=== PATIENT | male | born 1955 | race Caucasian/White ===

== ENCOUNTER → 2016-11-03 | Outpatient (CLI) | payer OTHER ==
[~2016-11-03] MED LIST: AMOX500T PO; ASPI1TAB83 PO; BUPR150T47 PO; CEFT1INJ57 IV; CLB/200 PO; DABI150C PO; DILT120C68 PO; DILT40TA PO; FERR1TAB23 PO; FERR325T5 PO; FRS/40 PO; FURO-85 PO; FURO20TA PO; GABA-1218 PO; LISI-729 PO; LPR25 PO; MAGN400T6 PO; METF-384 PO; METR-163 PO; MULT-190 PO; MULT-506 PO; NTRGSL/4 UT; PRAV80TA2 PO; TRAM-10 PO; VITAMIN B12 SL; WARF4TAB8 PO; WARF6TAB5 PO; WLLSR/150 PO
[2016-11-03 11:36] LABS: HEMATOCRIT 33.8 % (42-52); MEAN CELL VOLUME 84.7 fL (80-100); MEAN CORPUSCULAR HEMOGLOBIN 26.3 pg (25-34); MEAN CORPUSCULAR HGB CONC 31.1 g/dl (32-36); MEAN PLATELET VOLUME 9.9 fL (7.4-10.4); PLATELET COUNT 271 K/uL (130-400); RED BLOOD COUNT 3.99 M/uL (4.7-6.1); WHITE BLOOD COUNT 6.66 K/uL (4.8-10.8)
[2016-11-03 11:53] LABS: ALT/SGPT 19 U/L (12-78); BLOOD UREA NITROGEN 14 mg/dl (7-18); BUN/CREATININE RATIO 22.6 (10-20); C-REACTIVE PROTEIN < 0.29 mg/dl (0-0.29); CALCIUM 8.8 mg/dl (8.5-10.1); CARBON DIOXIDE 26 mmol/L (21-32); CHLORIDE 107 mmol/L (98-107); CREATININE 0.62 mg/dl (0.60-1.40); GLUCOSE 166 mg/dl (70-99); POTASSIUM 4.5 mmol/L (3.5-5.1); SODIUM 139 mmol/L (136-145)
[2016-11-03 11:56] LABS: ALKALINE PHOSPHATASE 88 U/L (45-117); AST/SGOT 19 U/L (15-37)
== END | disposition home or self-care (01) ==
LOC: C.LABSPEC 11:19
PROVIDERS: ATTEND Hospitalist
DX: L03.115 Cellulitis of right lower limb (principal)

== ENCOUNTER 2017-08-22 11:53 | Observation (INO) | payer OTHER ==
[~2017-08-22] VITALS: Ht 172.7 cm; Wt 87.5 kg
[~2017-08-22 11:53] MED LIST changes: -CEFT1INJ57 IV; -CLB/200 PO; -DABI150C PO; -DILT120C68 PO; -FERR1TAB23 PO; -FERR325T5 PO; -FRS/40 PO; -FURO20TA PO; -LISI-729 PO; -MAGN400T6 PO; -MULT-190 PO; -MULT-506 PO; -NTRGSL/4 UT; -VITAMIN B12 SL; -WARF6TAB5 PO; -WLLSR/150 PO
[2017-08-22 12:53] LABS: BASO % 0.3 %; BASO ABS # 0.02 K/uL (0-0.2); EOS % 5.9 %; HEMATOCRIT 28.6 % (42-52); IG% 0.2 %; LYMPH % 17.2 %; LYMPH ABS # 0.99 K/uL (1.2-3.4); MEAN CELL VOLUME 75.3 fL (80-100); MEAN CORPUSCULAR HEMOGLOBIN 22.6 pg (25-34); MEAN CORPUSCULAR HGB CONC 30.1 g/dl (32-36); MEAN PLATELET VOLUME 9.6 fL (7.4-10.4); NEUT % 68.4 %; PLATELET COUNT 196 K/uL (130-400); WHITE BLOOD COUNT 5.77 K/uL (4.8-10.8)
--- NOTE | 2017-08-22 13:00 | DIAGNOSTIC IMAGING REPORT ---
CHEST ONE VIEW PORTABLE CLINICAL HISTORY: Atypical chest pain COMPARISON STUDY: 10/01/2016 FINDINGS: The heart remains enlarged. There is continued radiographic evidence of congestive failure with interstitial edema. There are bilateral pleural effusions with associated bibasilar opacities likely reflecting compressive atelectasis[ . The left-sided PICC catheter has been removed. There is an area of focal pleural thickening/pleural-based opacity within the left upper lung zone. Radiographic follow-up subsequent to failure treatment is recommended. IMPRESSION: 1. Congestive failure, pulmonary edema, and bilateral pleural effusions. 2. Subtle pleural based left upper lung zone opacity. Radiographic follow-up subsequent to failure treatment is recommended. Electronically signed by: Otto Galeano M.D. 08/22/2017 12:58 PM Dictated Date/Time: 08/22/2017 12:57 PM
[2017-08-22] MEDS ORDERED: WARF6TAB5 PO (13:05)
[2017-08-22] MEDS ORDERED: MULT-506 PO (13:06)
[2017-08-22] MEDS ORDERED: FERR1TAB23 PO (13:06)
[2017-08-22] MEDS ORDERED: CLB/200 PO (13:06)
[2017-08-22] MEDS ORDERED: MULT-190 PO (13:06)
[2017-08-22 13:09] LABS: INR 4.7 (0.9-1.1); PARTIAL THROMBOPLASTIN RATIO 1.8; PROTHROMBIN TIME (PATIENT) 53.4 SECONDS (9.0-12.0)
[2017-08-22 13:11] LABS: ALT/SGPT 20 U/L (12-78); BLOOD UREA NITROGEN 16 mg/dl (7-18); CALCIUM 8.6 mg/dl (8.5-10.1); CARBON DIOXIDE 25 mmol/L (21-32); CHLORIDE 109 mmol/L (98-107); CREATININE 0.86 mg/dl (0.60-1.40); GLUCOSE 130 mg/dl (70-99); POTASSIUM 4.4 mmol/L (3.5-5.1); SODIUM 143 mmol/L (136-145)
[2017-08-22 13:16] LABS: ALKALINE PHOSPHATASE 116 U/L (45-117); AST/SGOT 16 U/L (15-37); CKMB/CK RATIO 1.7 (0-3.0)
[2017-08-22] MEDS ORDERED: FUROSEMIDE 40 MG/4 ML VIAL IV STA (13:25)
[2017-08-22 13:55] LABS: ANISOCYTOSIS PRESENT; COMPLETE YES; MICROCYTOSIS PRESENT
[2017-08-22 14:10] VITALS: Ht 172.7 cm; Wt 87.5 kg
[2017-08-22] MEDS ORDERED: POLYETHYLENE (MIRALAX) 17 GM PACK PO PRN (14:15)
[2017-08-22] MEDS ORDERED: ACETAMINOPHEN 325 MG TAB PO PRN (14:15)
[2017-08-22] MEDS ORDERED: ONDANSETRON INJ 2 MG/ML 2 ML VIAL IV PRN (14:15)
[2017-08-22] MEDS ORDERED: TRAMADOL HCL 50 MG TAB PO PRN (14:15)
[2017-08-22] MEDS ORDERED: MAGNESIUM HYDROXIDE SUSP 30 ML UDC PO PRN (14:15)
[2017-08-22] MEDS ORDERED: MoRPHine SULFATE 2 MG/ML CARP IV PRN (14:15)
[2017-08-22] MEDS ORDERED: ALUMINUM/MAGNESIUM/SIMETH (MAALOX MAX) 30 ML UDC PO PRN (14:15)
[2017-08-22] MEDS ORDERED: NITROGLYCERIN 0.4 MG SL PER TAB CHARGE SL PRN (14:15)
--- NOTE | 2017-08-22 14:37 | History and Physical ---
History & Physical Date & Time of Service: Aug 22, 2017 at 14:18 Chief Complaint: SOB Primary Care Physician: Karissa Dillard C.R.N.P. History of Present Illness Source: patient, family (), clinic records, hospital records Patient is a pleasant 62 y/o male, with PMHx of HTN, T2DM w/ neuropathy, chronic anemia, systolic CHF, a.fib, HLD, h/o tobacco abuse, CAD s/p stents to LAD x2, who presented to the ED because of worsening SOB w/ activity x6 weeks. Patient notes yesterday, SOB severely worsened. He went to the football game which required a lot of walking and he was very SOB. He notes last night even rolling over in bed caused him to become SOB. He does have a h/o gastric bypass and notes his weight is usually around 185lb- today around 200lb. He has been taking his medication as prescribed. Patient has a h/o chronic anemia- unsure if he has ever been worked up but states he is to be on an iron supplement, which he has not been taking. He denies any melena or BRBPR. Patient denies any fever, chills, sweats, lightheadedness, dizziness, vision changes, CP, palpitations, edema, wheezing, cough, abdominal pain, nausea, vomiting, diarrhea , urinary symptoms, melena, numbness/tingling, weakness, muscle/joint pain, anxiety/depression, active bleeding, or new skin discoloration/changes. Past Medical/Surgical History Past Medical History: HTN T2DM w/ neuropathy chronic anemia systolic CHF a.fib HLD h/o tobacco abuse CAD s/p stents to LAD x2 Surgical history: osteomyelitis s/p I&D s/p stent placement gastric bypass Family History Brother- CVA Social History Smoking Status: Former Smoker Drug Use: none Marital Status: Housing status: lives with family Occupational Status: employed Multi-Drug Resistant Organisms History of MDRO: No Allergies Coded Allergies: No Known Allergies (Unverified , 08/22/17) Home Medications Scheduled Aspirin (Aspirin), 81 MG PO QAM Bupropion (Zyban), 150 MG PO BID Celecoxib (CeleBREX), 200 MG PO DAILY Diltiazem Hcl (Cardizem), 1 TAB PO BID Ferrous Sulfate (Iron), 1 TAB PO DAILY Furosemide (Lasix), 20 MG PO BID Gabapentin (Neurontin), 300 MG PO BID Metformin Hcl (Glucophage), 1,000 MG PO BID Metoprolol Tartrate (Lopressor), 25 MG PO BID Multivitamin (Multivitamin), 1 TAB PO DAILY Ocuvite Preservision (Ocuvite Preservision), 1 TAB PO BID Pravastatin Sodium (Pravastatin Sodium), PO HS Warfarin Sod (Jantoven), 6 MG PO DAILY Scheduled PRN Tramadol (Ultram), 50 MG PO Q4H PRN Physical Exam Vital Signs Date Time Temp Pulse Resp B/P (MAP) Pulse Ox O2 Delivery O2 Flow Rate FiO2 08/22/17 14:13 78 20 126/64 97 Room Air 08/22/17 13:28 66 18 102/62 93 Room Air 08/22/17 12:47 72 08/22/17 12:34 97 Room Air 08/22/17 12:34 98 Room Air 08/22/17 12:34 98 08/22/17 12:13 36.7 72 18 108/70 93 Room Air General Appearance: no apparent distress Head: normocephalic, atraumatic Eyes: PERRL ENT: hearing grossly normal Neck: supple Respiratory/Chest: no respiratory distress, no accessory muscle use, + crackles (bilateral lung bases ) Cardiovascular: + irregularly irregular (rate controlled) Abdomen/GI: normal bowel sounds, non tender, soft Back: normal inspection Extremities/Musculoskelatal: no calf tenderness, + swelling (+1 pitting edema of bilateral lower extremities ), + pertinent finding (chronic stasis changes to bilateral lower extremities ) Neurologic/Psych: alert, normal mood/affect, oriented x 3 Skin: warm/dry, no rash, + pallor Diagnostics Laboratory Results Results Past 24 Hours Test 08/22/17 12:28 Range/Units White Blood Count 5.77 4.8-10.8 K/uL Red Blood Count 3.80 4.7-6.1 M/uL Hemoglobin 8.6 14.0-18.0 g/dL Hematocrit 28.6 42-52 % Mean Corpuscular Volume 75.3 80-100 fL Mean Corpuscular Hemoglobin 22.6 25-34 pg Mean Corpuscular Hemoglobin Concent 30.1 32-36 g/dl Platelet Count 196 130-400 K/uL Mean Platelet Volume 9.6 7.4-10.4 fL Neutrophils (%) (Auto) 68.4 % Lymphocytes (%) (Auto) 17.2 % Monocytes (%) (Auto) 8.0 % Eosinophils (%) (Auto) 5.9 % Basophils (%) (Auto) 0.3 % Neutrophils # (Auto) 3.95 1.4-6.5 K/uL Lymphocytes # (Auto) 0.99 1.2-3.4 K/uL Monocytes # (Auto) 0.46 0.11-0.59 K/uL Eosinophils # (Auto) 0.34 0-0.5 K/uL Basophils # (Auto) 0.02 0-0.2 K/uL RDW Standard Deviation 51.3 36.4-46.3 fL RDW Coefficient of Variation 18.6 11.5-14.5 % Immature Granulocyte % (Auto) 0.2 % Immature Granulocyte # (Auto) 0.01 0.00-0.02 K/uL Anisocytosis PRESENT Microcytosis PRESENT Prothrombin Time 53.4 9.0-12.0 SECONDS Prothromb Time International Ratio 4.7 0.9-1.1 Activated Partial Thromboplast Time 47.4 21.0-31.0 SECONDS Partial Thromboplastin Ratio 1.8 Sodium Level 143 136-145 mmol/L Potassium Level 4.4 3.5-5.1 mmol/L Chloride Level 109 98-107 mmol/L Carbon Dioxide Level 25 21-32 mmol/L Anion Gap 8.0 3-11 mmol/L Blood Urea Nitrogen 16 7-18 mg/dl Creatinine 0.86 0.60-1.40 mg/dl Est Creatinine Clear Calc Drug Dose 96.4 ml/min Estimated GFR () 107.0 Estimated GFR (Non- 92.3 BUN/Creatinine Ratio 19.0 10-20 Random Glucose 130 70-99 mg/dl Calcium Level 8.6 8.5-10.1 mg/dl Total Bilirubin 0.4 0.2-1 mg/dl Direct Bilirubin 0.2 0-0.2 mg/dl Aspartate Amino Transf (AST/SGOT) 16 15-37 U/L Alanine Aminotransferase (ALT/SGPT) 20 12-78 U/L Alkaline Phosphatase 116 45-117 U/L Total Creatine Kinase 114 39-308 U/L Creatine Kinase MB 1.9 0.5-3.6 ng/ml Creatine Kinase MB Ratio 1.7 0-3.0 Troponin I < 0.015 0-0.045 ng/ml Pro-B-Type Natriuretic Peptide 1010 0-900 pg/ml Total Protein 6.8 6.4-8.2 gm/dl Albumin 3.4 3.4-5.0 gm/dl Lipase 459 73-393 U/L Diagnostic Radiology CHEST ONE VIEW PORTABLE CLINICAL HISTORY: Atypical chest pain COMPARISON STUDY: 10/01/2016 FINDINGS: The heart remains enlarged. There is continued radiographic evidence of congestive failure with interstitial edema. There are bilateral pleural effusions with associated bibasilar opacities likely reflecting compressive atelectasis[ . The left-sided PICC catheter has been removed. There is an area of focal pleural thickening/pleural-based opacity within the left upper lung zone. Radiographic follow-up subsequent to failure treatment is recommended. IMPRESSION: 1. Congestive failure, pulmonary edema, and bilateral pleural effusions. 2. Subtle pleural based left upper lung zone opacity. Radiographic follow-up subsequent to failure treatment is recommended. Electronically signed by: Otto Galeano M.D. 08/22/2017 12:58 PM Dictated Date/Time: 08/22/2017 12:57 PM The status of this report is Signed. Draft = Not yet reviewed or approved by Radiologist. Signed = Reviewed and approved by Radiologist. EKG BRUCE YANEZ ID:[id number] 22-AUG-2017 12:39:58 [facility] Atrial fibrillation Low voltage QRS Abnormal ECG When compared with ECG of 01-OCT-2016 15:56, Vent. rate has decreased BY 39 BPM Confirmed by EMANUEL DURON ([id number]) on 08/22/2017 1:47:53 PM 25mm/s 10mm/mV 150Hz 8.0 SP2 12SL 241 RENE: 10 Referred by: Confirmed By: EMANUEL DURON Vent. rate 69 BPM [place] interval * ms QRS duration 90 ms QT/QTc 434/465 ms P-R-T axes * 49 51 1955 (62 yr) Male 1lb Room: Loc:15 Automatic Steel Tie Adjuster:JOSÉ MIGUEL [place] ind: Impression Assessment and Plan Patient is a pleasant 62 y/o male, with PMHx of HTN, T2DM w/ neuropathy, chronic anemia, systolic CHF, a.fib, HLD, h/o tobacco abuse, CAD s/p stents to LAD x2, who presented to the ED because of worsening SOB w/ activity x6 weeks. Acute on chronic systolic CHF: - Admit to tele for cardiac monitoring - Trend cardiac enzymes- initial trop negative - Follow EKG QAM and PRN for chest pain - O2 protocol - IV Lasix 40 mg BID; hold Lasix 20 mg PO BID - Monitor I&Os and daily weights - ECHO pending Chronic anemia- baseline hgb 10.0: - Follow CBC - Type & screen completed - Check b12/folate, iron studies, and stool occult HTN, CAD s/p stents, HLD, persistent a.fib : - Continue ASA 81 mg daily, Cardizem 60 mg BID, Lopressor 25 mg BID, Pravastatin 80 mg daily - INR supratherapeutic at 4.7- hold Coumadin 6 mg daily- follow PT/INR and adjust Coumadin dosage PRN for INR goal 2-3 Arthritis: Continue Celebrex 200 mg daily, Tramadol 50 mg q4 hrs PRN pain T2DM w/ neuropathy: - Hold Metformin 1000 mg BID - BSG ACHS and ISS - Continue Gabapentin 300 mg BID h/o tobacco abuse: Continue Zyban 150 mg BID GI prophylaxis: Protonix 40 mg daily DVT prophylaxis: TEDs/SCDs; Coumadin held due to supratherapeutic INR/anemia Code Status: LEVEL I, FULL Dispo: From home, lives w/ - no discharge needs anticipated Level of Care Telemetry Resuscitation Status FULL RESUSCITATION VTE Prophylaxis VTE Risk Assessment Done? Y/N: Yes Risk Level: Moderate Given or contraindicated: T.E.D. Stockings, SCD's, Contraindicated
[2017-08-22] MEDS ORDERED: DEXTROSE 50% 50 ML SYR IV PRN (14:45)
[2017-08-22] MEDS ORDERED: GLUCOSE 10 TABS/TUBE PO PRN (14:45)
[2017-08-22] MEDS ORDERED: GLUCAGON FOR INJ 1 MG VIAL SQ PRN (14:45)
[2017-08-22] MEDS ORDERED: GLUCOSE 40% GEL 15 GM TUBE PO PRN (14:45)
[2017-08-22] MEDS ORDERED: IV FLUIDS COMPLETED PRN (15:00)
[2017-08-22 15:06] LABS: FERRITIN 110.4 ng/ml (8.0-388.0)
[2017-08-22 15:14] VITALS: BP 118/72; PULSE 77; TEMP 36.7; O2SAT 93
[2017-08-22 16:00] VITALS: O2SAT 93
[2017-08-22] MEDS: FUROSEMIDE INJ 40 MG in SYRINGE 0 ML IV SCH (16:58)
[2017-08-22] MEDS ORDERED: PRAVASTATIN SOD 40 MG TAB PO SCH (17:00)
[2017-08-22] MEDS: INSULIN ASPART 100 UNITS/ML 3 ML PEN SC SCH ×2 (17:21→20:45)
[2017-08-22] MEDS ORDERED: FUROSEMIDE INJ 20 MG in SYRINGE 0 ML IV SCH (18:00)
--- NOTE | 2017-08-22 18:26 | EMERGENCY ROOM VISIT NOTE ---
History Report prepared by Vale: Jackson Gamble Under the Supervision of: Dr. Juliano Nagy M.D. First contact with patient: 12:24 Chief Complaint: SHORTNESS OF BREATH Stated Complaint: SOB History of Present Illness The patient is a 62 year old male who presents to the Emergency Room with complaints of worsening shortness of breath that started a month and a half ago. He says that his breathing difficulties really got bad over the past couple days. The patient notes that he went to the football game yesterday, and walked more than usual, and got very short of breath. He says that he got so short of breath that he had to lay in bed to recover. He adds that he has history a mild heart attack, where he had no chest pain. The patient also notes a history of stent placements. The patient is on Warfarin. Pt denies LOC, headache, fevers, chills, diaphoresis, visual changes, neck pain, notable chest pain, nausea, vomiting, abdominal pain, back pain, melena, hematochezia, urinary symptoms, numbness, weakness, lymphadenopathy, rash, skin color change, or other complaints. Source of History: patient, family Onset: Month and a half ago Position: other (global - shortness of breath) Symptom Intensity: got so bad that had to lay in bed to recover Timing: worsening Modifying Factors (Worsening): exertion Modifying Factors (Relieving): rest Note: No other associated symptoms noted. Review of Systems See HPI for pertinent positives and negatives. A total of ten systems were reviewed and were otherwise negative. Past Medical & Surgical Medical Problems: (1) Cellulitis of right lower extremity (2) Diabetic foot ulcer (3) Diabetic peripheral neuropathy associated with type 2 diabetes mellitus (4) Loss of sensation (5) Osteomyelitis (6) Pre-ulcerative corn or callous (7) Status post partial amputation of foot Family History No pertinent family history Social History Smoking Status: Former Smoker Drug Use: none Marital Status: Housing Status: lives with family Occupation Status: employed Current/Historical Medications Scheduled Aspirin (Aspirin), 81 MG PO QAM Bupropion (Zyban), 150 MG PO BID Celecoxib (CeleBREX), 200 MG PO DAILY Diltiazem Hcl (Cardizem), 1 TAB PO BID Ferrous Sulfate (Iron), 1 TAB PO DAILY Furosemide (Lasix), 20 MG PO BID Gabapentin (Neurontin), 300 MG PO BID Metformin Hcl (Glucophage), 1,000 MG PO BID Metoprolol Tartrate (Lopressor), 25 MG PO BID Multivitamin (Multivitamin), 1 TAB PO DAILY Ocuvite Preservision (Ocuvite Preservision), 1 TAB PO BID Pravastatin Sodium (Pravastatin Sodium), PO HS Warfarin Sod (Jantoven), 6 MG PO DAILY Scheduled PRN Tramadol (Ultram), 50 MG PO Q4H PRN Allergies Coded Allergies: No Known Allergies (Unverified , 08/22/17) Physical Exam Vital Signs Date Time Temp Pulse Resp B/P (MAP) Pulse Ox O2 Delivery O2 Flow Rate FiO2 08/22/17 14:13 78 20 126/64 97 Room Air 08/22/17 14:10 Room Air 08/22/17 13:28 66 18 102/62 93 Room Air 08/22/17 12:47 72 08/22/17 12:34 97 Room Air 08/22/17 12:34 98 Room Air 08/22/17 12:34 98 08/22/17 12:13 36.7 72 18 108/70 93 Room Air Physical Exam GENERAL: Awake, alert, well-appearing, in no distress HENT: Normocephalic, atraumatic. Oropharynx unremarkable. EYES: Pale conjunctiva. Sclera non-icteric. NECK: Supple. No nuchal rigidity. FROM. No JVD. RESPIRATORY: Clear to auscultation. CARDIAC: Irregularly irregular. Extremities warm and well perfused. Pulses equal. ABDOMEN: Soft, non-distended. No tenderness to palpation. No rebound or guarding. No masses. RECTAL: Deferred. MUSCULOSKELETAL: Chest examination reveals no tenderness. The back is symmetrical on inspection without obvious abnormality. There is no CVA tenderness to palpation. No joint edema. LOWER EXTREMITIES: Calves are equal size bilaterally and non-tender. 1+ edema. Chronic venous discoloration. NEURO: Normal sensorium. No sensory or motor deficits noted. SKIN: No rash or jaundice noted. Medical Decision & Procedures ER Provider Diagnostic Interpretation: X-ray: Per my interpretation, radiologist review. CHEST ONE VIEW PORTABLE CLINICAL HISTORY: Atypical chest pain COMPARISON STUDY: 10/01/2016 FINDINGS: The heart remains enlarged. There is continued radiographic evidence of congestive failure with interstitial edema. There are bilateral pleural effusions with associated bibasilar opacities likely reflecting compressive atelectasis[ . The left-sided PICC catheter has been removed. There is an area of focal pleural thickening/pleural-based opacity within the left upper lung zone. Radiographic follow-up subsequent to failure treatment is recommended. IMPRESSION: 1. Congestive failure, pulmonary edema, and bilateral pleural effusions. 2. Subtle pleural based left upper lung zone opacity. Radiographic follow-up subsequent to failure treatment is recommended. Electronically signed by: Otto Galeano M.D. 08/22/2017 12:58 PM Dictated Date/Time: 08/22/2017 12:57 PM Laboratory Results 08/22/17 12:28 Red Blood Count 3.80, Mean Corpuscular Volume 75.3, Mean Corpuscular Hemoglobin 22.6, Mean Corpuscular Hemoglobin Concent 30.1, Mean Platelet Volume 9.6, Neutrophils (%) (Auto) 68.4, Lymphocytes (%) (Auto) 17.2, Monocytes (%) (Auto) 8.0, Eosinophils (%) (Auto) 5.9, Basophils (%) (Auto) 0.3, Neutrophils # (Auto) 3.95, Lymphocytes # (Auto) 0.99, Monocytes # (Auto) 0.46, Eosinophils # (Auto) 0.34, Basophils # (Auto) 0.02 08/22/17 12:28 Test 08/22/17 12:28 White Blood Count 5.77 K/uL (4.8-10.8) Red Blood Count 3.80 M/uL (4.7-6.1) Hemoglobin 8.6 g/dL (14.0-18.0) Hematocrit 28.6 % (42-52) Mean Corpuscular Volume 75.3 fL (80-100) Mean Corpuscular Hemoglobin 22.6 pg (25-34) Mean Corpuscular Hemoglobin Concent 30.1 g/dl (32-36) Platelet Count 196 K/uL (130-400) Mean Platelet Volume 9.6 fL (7.4-10.4) Neutrophils (%) (Auto) 68.4 % Lymphocytes (%) (Auto) 17.2 % Monocytes (%) (Auto) 8.0 % Eosinophils (%) (Auto) 5.9 % Basophils (%) (Auto) 0.3 % Neutrophils # (Auto) 3.95 K/uL (1.4-6.5) Lymphocytes # (Auto) 0.99 K/uL (1.2-3.4) Monocytes # (Auto) 0.46 K/uL (0.11-0.59) Eosinophils # (Auto) 0.34 K/uL (0-0.5) Basophils # (Auto) 0.02 K/uL (0-0.2) RDW Standard Deviation 51.3 fL (36.4-46.3) RDW Coefficient of Variation 18.6 % (11.5-14.5) Immature Granulocyte % (Auto) 0.2 % Immature Granulocyte # (Auto) 0.01 K/uL (0.00-0.02) Anisocytosis PRESENT Microcytosis PRESENT Prothrombin Time 53.4 SECONDS (9.0-12.0) Prothromb Time International Ratio 4.7 (0.9-1.1) Activated Partial Thromboplast Time 47.4 SECONDS (21.0-31.0) Partial Thromboplastin Ratio 1.8 Anion Gap 8.0 mmol/L (3-11) Est Creatinine Clear Calc Drug Dose 96.4 ml/min Estimated GFR () 107.0 Estimated GFR (Non- 92.3 BUN/Creatinine Ratio 19.0 (10-20) Calcium Level 8.6 mg/dl (8.5-10.1) Iron Level 23 mcg/dl (35-175) Total Iron Binding Capacity 384 mcg/dl (250-450) Transferrin 278 mg/dl (200-360) Transferrin % Saturation 6 % (20-50) Ferritin 110.4 ng/ml (8.0-388.0) Total Bilirubin 0.4 mg/dl (0.2-1) Direct Bilirubin 0.2 mg/dl (0-0.2) Aspartate Amino Transf (AST/SGOT) 16 U/L (15-37) Alanine Aminotransferase (ALT/SGPT) 20 U/L (12-78) Alkaline Phosphatase 116 U/L (45-117) Total Creatine Kinase 114 U/L (39-308) Creatine Kinase MB 1.9 ng/ml (0.5-3.6) Creatine Kinase MB Ratio 1.7 (0-3.0) Troponin I < 0.015 ng/ml (0-0.045) Pro-B-Type Natriuretic Peptide 1010 pg/ml (0-900) Total Protein 6.8 gm/dl (6.4-8.2) Albumin 3.4 gm/dl (3.4-5.0) Lipase 459 U/L (73-393) Hepatitis C Antibody Screen NEG (NEG) Laboratory results reviewed by me Medications Administered Medications (Trade) Dose Ordered Sig/Edward Route Start Time Stop Time Status Last Admin Dose Admin Furosemide (Lasix Inj) 40 mg NOW STAT IV 08/22/17 13:25 08/22/17 13:26 DC 08/22/17 13:43 40 MG ECG Indication: SOB/dyspnea Rate (beats per minute): 69 Rhythm: atrial fibrillation Findings: no acute ischemic change, no ectopy ED Course 1230: The patient was evaluated in room B9. A complete history and physical exam was performed. 1325: Ordered Lasix Inj 40 mg IV. 1331: Upon reexamination, the patient was resting. I discussed the test results and treatment plan with him. He expressed verbal understanding and agreement. The patient will be evaluated for further management. 1332: I discussed the patient with Dr. Bree BERNABE hospitalist - he will evaluate the patient for further treatment. Medical Decision Triage Nursing notes reviewed. The patient's presentation and history were concerning for shortness of breath and exertional dyspnea. Etiologies such as CHF, cardiac ischemia,pneumonia, COPD, reactive airway disease, pulmonary embolism, pneumothorax, musculoskeletal, infections, gastrointestinal, as well as others were entertained. The patient was evaluated. Physical is above. He had blood work obtained. ECG and chest x-ray performed. CHF was noted on his chest x-ray. The patient' s CBC revealed a moderate anemia. Type and screen sent. The patient was given IV Lasix. He had an unremarkable set of cardiac markers. ECG did not reveal any evidence of ischemia. The patient will need further management and workup in the hospital. I discussed this with the patient and his significant other. They were in agreement. Consultation was made with the hospitalist. The patient was evaluated for further treatment. Medication Reconcilliation Current Medication List: was personally reviewed by me Blood Pressure Screening Patient's blood pressure: Normal blood pressure Consults Time Called: 1330 Consulting Physician: Dr. Bree BERNABE hospitalist Returned Call: 1332 I discussed the patient with Dr. Bree BERNABE hospitalist - he will evaluate the patient for further treatment. Impression Primary Impression: Acute CHF Additional Impressions: Anemia Supratherapeutic INR Scribe Attestation The scribe's documentation has been prepared under my direction and personally reviewed by me in its entirety. I confirm that the note above accurately reflects all work, treatment, procedures, and medical decision making performed by me. Departure Information Dispostion Being Evaluated By Hospitalist Referrals Karissa Dillard, C.R.N.P. (PCP) Patient Instructions My [facility] Problem Qualifiers
[2017-08-22 19:26] VITALS: BP 113/75; PULSE 97; TEMP 36.7; O2SAT 96
[2017-08-22 20:00] VITALS: O2SAT 96
[2017-08-22] MEDS: METOPROLOL TARTRATE 25 MG TAB PO SCH (20:43)
[2017-08-22] MEDS: DILTIAZEM HCL 60 MG TAB PO SCH (20:43)
[2017-08-22] MEDS: CEROVITE ADV FORMULA TAB PO SCH (20:44)
[2017-08-22] MEDS: GABAPENTIN 300 MG CAP PO SCH (20:44)
[2017-08-22] MEDS: BuPROPion SR 150 MG TABCR PO SCH (20:44)
[2017-08-23] VITALS (7 sets, daily range): BP systolic 96–121; BP diastolic 67–75; PULSE 72–86; TEMP 36.7–37.6; O2SAT 80–96
[2017-08-23 04:39] LABS: HEMATOCRIT 29.1 % (42-52); MEAN CELL VOLUME 74.6 fL (80-100); MEAN CORPUSCULAR HEMOGLOBIN 22.1 pg (25-34); MEAN CORPUSCULAR HGB CONC 29.6 g/dl (32-36); MEAN PLATELET VOLUME 8.8 fL (7.4-10.4); PLATELET COUNT 197 K/uL (130-400); WHITE BLOOD COUNT 5.77 K/uL (4.8-10.8)
[2017-08-23 04:50] LABS: INR 3.1 (0.9-1.1); PROTHROMBIN TIME (PATIENT) 35.2 SECONDS (9.0-12.0)
[2017-08-23 05:00] LABS: BLOOD UREA NITROGEN 17 mg/dl (7-18); BUN/CREATININE RATIO 20.5 (10-20); CALCIUM 8.8 mg/dl (8.5-10.1); CARBON DIOXIDE 29 mmol/L (21-32); CHLORIDE 108 mmol/L (98-107); CREATININE 0.81 mg/dl (0.60-1.40); GLUCOSE 115 mg/dl (70-99); SODIUM 144 mmol/L (136-145)
[2017-08-23] MEDS: BuPROPion SR 150 MG TABCR PO SCH (07:57)
[2017-08-23] MEDS: CEROVITE ADV FORMULA TAB PO SCH (07:58)
[2017-08-23] MEDS: DILTIAZEM HCL 60 MG TAB PO SCH (07:58)
[2017-08-23] MEDS: GABAPENTIN 300 MG CAP PO SCH (07:58)
[2017-08-23] MEDS: METOPROLOL TARTRATE 25 MG TAB PO SCH (07:59)
[2017-08-23] MEDS: FUROSEMIDE INJ 40 MG in SYRINGE 0 ML IV SCH (07:59)
[2017-08-23] MEDS: INSULIN ASPART 100 UNITS/ML 3 ML PEN SC SCH ×2 (08:04→11:00)
--- NOTE | 2017-08-23 08:42 | Hospitalist Progress Note ---
Hospitalist Progress Note Date of Service Aug 23, 2017. (Anisa Rogers PA-C) Subjective Pt evaluation today including: conversation w/ patient, physical exam, chart review, lab review, review of studies Pain: None PO Intake: good Voiding: no voiding problems The patient was seen and examined this morning. Pt reports feeling well today. He did wears O2 at 2 L overnight, but is hopeful that he doesn't have to wear this at home. He denies shortness of breaths, chest pain, palpitations, flutter. Pt hasn't gotten up to walk in the hallways today, so was encouraged to later. Nursing asked to do a 2step O2 test. Constitutional: No fever, No chills, No sweats, No fatigue Eyes: No diplopia, No problem reported ENT: No nasal symptoms, No trouble swallowing Respiratory: No cough, No wheezing, No shortness of breath, No dyspnea on exertion, No dyspnea at rest Cardiovascular: No chest pain, No edema, No palpitations Abdomen: No pain, No nausea, No vomiting, No diarrhea, No constipation Musculoskeletal: No joint pain Neurologic: No weakness, No numbness/tingling Endo: No fatigue Skin: No rash, No itch (Anisa Rogers PA-C) Objective Vital Signs Date Time Temp Pulse Resp B/P (MAP) Pulse Ox O2 Delivery O2 Flow Rate FiO2 08/23/17 07:21 36.9 83 18 116/75 (89) 93 Nasal Cannula 2.0 08/23/17 04:04 96 Room Air 08/23/17 03:08 36.7 86 18 121/74 (90) 92 08/23/17 00:06 37.6 72 18 111/67 (82) 86 Room Air 08/23/17 00:02 96 Room Air 08/22/17 20:00 96 Room Air 08/22/17 19:26 36.7 97 18 113/75 (88) 96 Room Air 08/22/17 16:00 93 Room Air 08/22/17 15:14 36.7 77 18 118/72 (87) 93 Room Air 08/22/17 14:40 78 20 126/64 97 08/22/17 14:13 78 20 126/64 97 Room Air 08/22/17 14:10 Room Air 08/22/17 13:28 66 18 102/62 93 Room Air 08/22/17 12:47 72 08/22/17 12:34 97 Room Air 08/22/17 12:34 98 Room Air 08/22/17 12:34 98 08/22/17 12:13 36.7 72 18 108/70 93 Room Air (Anisa Rogers PA-C) Physical Exam General Appearance: WD/WN, no apparent distress Eyes: PERRL, EOMI ENT: hearing grossly normal, pharynx normal Neck: supple, no JVD Respiratory/Chest: lungs clear, no respiratory distress, no accessory muscle use, + pertinent finding (on room air) Cardiovascular: no murmur, + irregularly irregular (rate controlled) Abdomen: normal bowel sounds, non tender, soft Extremities: non-tender, no pedal edema, + pertinent finding (Chronic venous stasis changes) Neurologic/Psychiatric: alert, normal mood/affect, oriented x 3 (Anisa Rogers PA-C) Laboratory Results Last 24 Hours Test 08/22/17 12:28 08/22/17 15:56 08/22/17 20:00 08/22/17 20:05 White Blood Count 5.77 K/uL Red Blood Count 3.80 M/uL Hemoglobin 8.6 g/dL Hematocrit 28.6 % Mean Corpuscular Volume 75.3 fL Mean Corpuscular Hemoglobin 22.6 pg Mean Corpuscular Hemoglobin Concent 30.1 g/dl Platelet Count 196 K/uL Mean Platelet Volume 9.6 fL Neutrophils (%) (Auto) 68.4 % Lymphocytes (%) (Auto) 17.2 % Monocytes (%) (Auto) 8.0 % Eosinophils (%) (Auto) 5.9 % Basophils (%) (Auto) 0.3 % Neutrophils # (Auto) 3.95 K/uL Lymphocytes # (Auto) 0.99 K/uL Monocytes # (Auto) 0.46 K/uL Eosinophils # (Auto) 0.34 K/uL Basophils # (Auto) 0.02 K/uL RDW Standard Deviation 51.3 fL RDW Coefficient of Variation 18.6 % Immature Granulocyte % (Auto) 0.2 % Immature Granulocyte # (Auto) 0.01 K/uL Anisocytosis PRESENT Microcytosis PRESENT Prothrombin Time 53.4 SECONDS Prothromb Time International Ratio 4.7 Activated Partial Thromboplast Time 47.4 SECONDS Partial Thromboplastin Ratio 1.8 Sodium Level 143 mmol/L Potassium Level 4.4 mmol/L Chloride Level 109 mmol/L Carbon Dioxide Level 25 mmol/L Anion Gap 8.0 mmol/L Blood Urea Nitrogen 16 mg/dl Creatinine 0.86 mg/dl Est Creatinine Clear Calc Drug Dose 96.4 ml/min Estimated GFR () 107.0 Estimated GFR (Non- 92.3 BUN/Creatinine Ratio 19.0 Random Glucose 130 mg/dl Calcium Level 8.6 mg/dl Iron Level 23 mcg/dl Total Iron Binding Capacity 384 mcg/dl Transferrin 278 mg/dl Transferrin % Saturation 6 % Ferritin 110.4 ng/ml Total Bilirubin 0.4 mg/dl Direct Bilirubin 0.2 mg/dl Aspartate Amino Transf (AST/SGOT) 16 U/L Alanine Aminotransferase (ALT/SGPT) 20 U/L Alkaline Phosphatase 116 U/L Total Creatine Kinase 114 U/L Creatine Kinase MB 1.9 ng/ml 1.4 ng/ml Creatine Kinase MB Ratio 1.7 Troponin I < 0.015 ng/ml < 0.015 ng/ml Pro-B-Type Natriuretic Peptide 1010 pg/ml Total Protein 6.8 gm/dl Albumin 3.4 gm/dl Lipase 459 U/L Hepatitis C Antibody Screen NEG Bedside Glucose 89 mg/dl Test 08/22/17 20:14 08/23/17 00:00 08/23/17 04:00 08/23/17 04:31 Bedside Glucose 111 mg/dl Stool Occult Blood NEGATIVE Creatine Kinase MB Ratio White Blood Count 5.77 K/uL Red Blood Count 3.90 M/uL Hemoglobin 8.6 g/dL Hematocrit 29.1 % Mean Corpuscular Volume 74.6 fL Mean Corpuscular Hemoglobin 22.1 pg Mean Corpuscular Hemoglobin Concent 29.6 g/dl RDW Standard Deviation 49.7 fL RDW Coefficient of Variation 18.4 % Platelet Count 197 K/uL Mean Platelet Volume 8.8 fL Prothrombin Time 35.2 SECONDS Prothromb Time International Ratio 3.1 Sodium Level 144 mmol/L Potassium Level 4.0 mmol/L Chloride Level 108 mmol/L Carbon Dioxide Level 29 mmol/L Anion Gap 7.0 mmol/L Blood Urea Nitrogen 17 mg/dl Creatinine 0.81 mg/dl Est Creatinine Clear Calc Drug Dose 102.3 ml/min Estimated GFR () 109.6 Estimated GFR (Non- 94.6 BUN/Creatinine Ratio 20.5 Random Glucose 115 mg/dl Calcium Level 8.8 mg/dl Creatine Kinase MB 0.8 ng/ml Troponin I < 0.015 ng/ml Vitamin B12 Level 1099 pg/mL Folate > 24.00 ng/mL Test 08/23/17 07:03 Bedside Glucose 130 mg/dl (Anisa Rogers, PAJpC) Assessment and Plan Patient is a pleasant 62 y/o male, with PMHx of HTN, T2DM w/ neuropathy, chronic anemia, systolic CHF, a.fib, HLD, h/o tobacco abuse, CAD s/p stents to LAD x2, who presented to the ED because of worsening SOB w/ activity x6 weeks. Acute on chronic systolic CHF: - Cardiac biomarkers negative x 3 - Follow EKG QAM and PRN for chest pain - O2 protocol - IV Lasix 40 mg BID transitioned to 20 mg Po QPM and 40 mg QAM - if does well with this overnight will likely d/c home tomorrow. - Outs = 2.3 L cumulative, and weight is decreasing - ECHO from 08/23/17 * Low normal left ventricular systolic function. * Mild concentric left ventricular hypertrophy. * Moderate left atrial dilatation. * Mild mitral regurgitation. * Trace tricuspid regurgitation. Chronic anemia- baseline hgb 10.0: - Follow CBC - remains stable in high 9s. - Hemoccult negative - B12 & folate adequate - Iron studies: total iron and transferrin sat are low - TIBC and and transferrin and ferritin are adequate - can dc iron supplementation- pt hasn't truely been taking iron for the past year. HTN CAD s/p stents - Continue ASA 81 mg daily, Cardizem 60 mg BID, Lopressor 25 mg BID HLD - Pravastatin 80 mg daily Chronic Atrial Fibrillation - EKG reviewed this am in afib, rate controlled - INR supratherapeutic at 4.7 at time of admission - Today is 3.1 - can resume small dose of coumadin tonight- 4mg - follow PT/INR and adjust Coumadin dosage PRN for INR goal 2-3 Arthritis - Continue Celebrex 200 mg daily, Tramadol 50 mg q4 hrs PRN pain T2DM w/ neuropathy: - Hold Metformin 1000 mg BID - BSG ACHS and ISS - Continue Gabapentin 300 mg BID h/o tobacco abuse: Continue Zyban 150 mg BID GI prophylaxis: Protonix 40 mg daily DVT prophylaxis: TEDs/SCDs; Coumadin held due to supratherapeutic INR/anemia Code Status: FULL CODE Dispo: From home, lives w/ - no discharge needs anticipated, d/c likely tomorrow (Anisa Rogers, TREY) I agree with above note after examining patient and discussing my plan of care with patient and APC. My physical exam did not differ from the one presented above. I agree with analysis and plan discussed in above note. (Roberto Sung M.D.)
[2017-08-23] MEDS ORDERED: CeleBREX 200 MG CAP PO SCH (09:00)
[2017-08-23] MEDS ORDERED: ASPIRIN 81 MG ECTAB PO SCH (09:00)
[2017-08-23] MEDS ORDERED: PANTOprazole SOD 40 MG TAB PO SCH (09:00)
[2017-08-23] MEDS ORDERED: MULTIVITAMIN TAB PO SCH (09:00)
[2017-08-23] MEDS ORDERED: FERROUS SULFATE 325 MG TAB PO SCH (09:00)
--- NOTE | 2017-08-23 12:26 | ECHOCARDIOGRAM REPORT ---
*NOTICE TO RECEIVING [employer] This information is strictly Confidential and protected under [place] law. [place] law prohibits you from making any further disclosure of this information unless further disclosure is expressly permitted by the written consent of the person to whom it pertains or is authorized by law. A general authorization for the release of medical or other information is not sufficient for this purpose. Hospital accepts no responsibility if the information is made available to any other person, INCLUDING THE PATIENT. Interpretation Summary * Name: BRUCE YANEZ Study Date: 08/23/2017 06:30 AM BP: 116/75 mmHg * Patient Location: .2T\S\E215\S\1 HR: 83 * : 1955 (M/d/yyyy) Gender: Male Height: 68 in * Age: 62 yrs Ethnicity: [place] Weight: 201 lb * Ordering Physician: Che Haddad * Referring Physician: Self, Referred * Performed By: Apurva Sanford RDCS * * Reason For Study: CHF * BSA: 2.0 m2 * Low normal left ventricular systolic function. * Mild concentric left ventricular hypertrophy. * Moderate left atrial dilatation. * Mild mitral regurgitation. * Trace tricuspid regurgitation. Procedure Details * A complete two-dimensional transthoracic echocardiogram was performed (2D, M-mode, Doppler and color flow Doppler). Left Ventricle * The left ventricle is normal in size. * There is mild concentric left ventricular hypertrophy. * Ejection Fraction = 50-55%. * Left ventricular systolic function is low normal. * The left ventricular wall motion is normal. * No regional wall motion abnormalities noted. Right Ventricle * The right ventricle is normal in size and function. * The right ventricular systolic function is normal as assessed by tricuspid annular plane systolic excursion (TAPSE) (normal >1.5 cm). Atria * The left atrium is moderately dilated. * Right atrial size is normal. * No ASD detected; PFO is not assessed. Mitral Valve * The mitral valve is normal. * There is no mitral valve stenosis. * There is mild mitral regurgitation. Tricuspid Valve * The tricuspid valve is normal. * There is no tricuspid stenosis. * There is trace tricuspid regurgitation. * Right ventricular systolic pressure is normal. Aortic Valve * The aortic valve opens well. * The aortic valve is trileaflet. * Aortic stenosis is absent. * No aortic regurgitation is present. Pulmonic Valve * The pulmonic valve is not well seen, but is grossly normal. * Pulmonic stenosis is absent. * There is no pulmonic valvular regurgitation. Great Vessels * The aortic root is normal size. Pericardium/Pleural * There is no pericardial effusion. Great Vessels * Normal inferior vena cava diameter and respiratory variation suggests normal central venous pressure. MMode 2D Measurements and Calculations IVSd 1.4 cm IVSs 2.1 cm LVIDd 4.6 cm LVIDs 3.4 cm LVPWd 1.4 cm LVPWs 1.5 cm IVS/LVPW 0.97 FS 27.8 % EDV(Teich) 99.7 ml ESV(Teich) 45.9 ml EF(Teich) 54.0 % EDV(cubed) 100.3 ml ESV(cubed) 37.7 ml EF(cubed) 62.4 % % IVS thick 52.5 % % LVPW thick 3.9 % LV mass(C)d 254.5 grams LV mass(C)dI 124.3 grams/m\S\2 LV mass(C)s 239.7 grams LV mass(C)sI 117.0 grams/m\S\2 SV(Teich) 53.8 ml SI(Teich) 26.3 ml/m\S\2 SV(cubed) 62.6 ml SI(cubed) 30.6 ml/m\S\2 Ao root diam 3.7 cm Ao root area 10.6 cm\S\2 LA dimension 5.0 cm LA/Ao 1.4 LVAd ap4 33.4 cm\S\2 LVLd ap4 7.9 cm EDV(MOD-sp4) 117.7 ml EDV(sp4-el) 120.8 ml LVAs ap4 21.5 cm\S\2 LVLs ap4 6.8 cm ESV(MOD-sp4) 58.9 ml ESV(sp4-el) 57.2 ml EF(MOD-sp4) 50.0 % EF(sp4-el) 52.6 % LVAd ap2 33.7 cm\S\2 LVLd ap2 8.5 cm EDV(MOD-sp2) 110.4 ml EDV(sp2-el) 113.3 ml LVAs ap2 22.2 cm\S\2 LVLs ap2 7.7 cm ESV(MOD-sp2) 54.4 ml ESV(sp2-el) 54.6 ml EF(MOD-sp2) 50.7 % EF(sp2-el) 51.8 % LVLd %diff 7.4 % EDV(MOD-bp) 118.9 ml LVLs %diff 10.8 % ESV(MOD-bp) 60.0 ml EF(MOD-bp) 49.6 % SV(MOD-sp4) 58.9 ml SI(MOD-sp4) 28.7 ml/m\S\2 SV(MOD-sp2) 55.9 ml SI(MOD-sp2) 27.3 ml/m\S\2 SV(MOD-bp) 58.9 ml SI(MOD-bp) 28.8 ml/m\S\2 SV(sp4-el) 63.5 ml SI(sp4-el) 31.0 ml/m\S\2 SV(sp2-el) 58.7 ml SI(sp2-el) 28.6 ml/m\S\2 Doppler Measurements and Calculations MV E max jackie 139.9 cm/sec MV dec time 0.19 sec Ao V2 max 109.5 cm/sec Ao max PG 4.8 mmHg Ao max PG (full) 2.1 mmHg LV V1 max PG 2.7 mmHg LV V1 max 82.0 cm/sec TR max jackie 219.6 cm/sec
--- NOTE | 2017-08-23 14:47 | Discharge Instructions ---
Discharge Instructions Date of Service Aug 23, 2017. Admission Reason for Admission: CHF Discharge Discharge Diagnosis / Problem: Acute on chronic systolic CHF Discharge Goals Goal(s): Decrease discomfort, Improve function, Increase independence, Improve disease control Activity Recommendations Activity Limitations: resume your previous activity Lifting Limitations: no more than 25 pounds, gradually increase as tolerated Exercise/Sports Limitations: rest today May Resume Sexual Activity: when tolerated Shower/Bathe: no limitations Driving or Machine Use: no limitations . Instructions / Follow-Up Instructions / Follow-Up You were admitted to [facility] with shortness of breath and diagnosed with acute exacerbation of Congestive heart failure. During your stay here you were treated with intravenous diuretics and other supportive care. Imaging studies which were completed include: Echocardiogram which showed: Low normal left ventricular systolic function. Mild concentric left ventricular hypertrophy. Moderate left atrial dilatation. Mild mitral regurgitation. Trace tricuspid regurgitation. Medications: Your lasix dosing has been changed to 40 mg in the morning and 20 mg in the evening. Continue taking coumadin as prescribed with a repeat INR on 08/25 Your coumadin was held on 08/22. On 08/23 it was reduced to 4 mg. RESUME your normal coumadin dosing tomorrow. Have repeat INR drawn on 08/23/17. Your INR at time of discharge was 3.1 Continue taking your medications as above. Appointments: Follow up with your Primary Care Provider within 1 week. Follow up with cardiology within 2 weeks, with Dr. Khan Specific CHF Instructions: Call your Primary Care doctor if any of the following symptoms or problems start or get worse: * Shortness of breath or difficulty breathing * Wake up at night short of breath * Chest pain * Cough * Swelling of your hands, feet, or legs * More fatigued or tired with your normal activity * Palpitations - sudden fast heart beats WEIGHT * Weigh yourself every morning after using the bathroom. * Use the same scale. * Wear the same amount of clothing. * Write your weight down on a chart. * Call your Primary Care doctor if you gain more than 2-3 pounds in 1-2 days or more than 5 lbs within 1 week. MEDICATIONS * Use this discharge instruction sheet for medication instructions. * Take your medications at the time your doctor ordered. * Do not skip a dose of your medicines. * If you miss a dose of medicine, take it as soon as possible, but DO NOT DOUBLE A DOSE. * Read your medicine information when you get home. * Know all of the side effects of your medicine. If in doubt, ask your pharmacist * Call your Primary Care doctor's office if you have any side effects. * Be sure all of your doctors know what medicine and herbs you take (including cold, flu, and herbal medicine). Take the following with you to your follow-up doctor appointments: * Weight Chart * Medication List * List of questions Do not drink excessive alcohol, beer or wine. Current Hospital Diet Patient's current hospital diet: AHA Diet (Heart Healthy), Diabetes Type 2 Diet , Low Sodium Diet (2gm Na) Discharge Diet Recommended Diet: AHA Diet (Heart Healthy), Low Sodium Diet (2gm Na), Diabetes Type 2 Diet Pending Studies Studies pending at discharge: no Medical Emergencies . Who to Call and When: Call 911 or go to the Emergency Room if: * If at any time you feel your situation is an emergency * You have tightness or pain in your chest that does not go away with rest or Nitroglycerin * You are very short of breath even with rest . Non-Emergent Contact Non-Emergency issues call your: Primary Care Provider Call Non-Emergent contact if: you have a fever, temperature is above 100.5, your pain is not controlled, your pain is worsening, your pain is unusual for you, your pain is concerning you, you have any medication questions . Past History Medical & Surgical History: (1) CHF (congestive heart failure) (2) Supratherapeutic INR . "Provider Documentation" section prepared by Lauren Rogers. . VTE Core Measure Inpt VTE Proph given/why not?: T.E.D. Stockings, SCD's, Contraindicated
[2017-08-23] MEDS ORDERED: FURO20TA PO (14:50)
--- NOTE | 2017-08-23 14:51 | Discharge Summary ---
Discharge Summary Date of Service Aug 23, 2017. (Anisa Rogers PA-C) Discharge Summary Admission Date: Aug 22, 2017 at 14:18 Discharge Date: Aug 23, 2017 Discharge Disposition: Home Principal Diagnosis: Acute on chronic systolic CHF exacerbation Problems/Secondary Diagnoses: Acute on chronic systolic CHF Chronic anemia- baseline hgb 10.0 HTN CAD s/p stents HLD Chronic Atrial Fibrillation Arthritis T2DM w/ neuropathy h/o tobacco abuse Procedures: CHEST ONE VIEW PORTABLE CLINICAL HISTORY: Atypical chest pain COMPARISON STUDY: 10/01/2016 FINDINGS: The heart remains enlarged. There is continued radiographic evidence of congestive failure with interstitial edema. There are bilateral pleural effusions with associated bibasilar opacities likely reflecting compressive atelectasis[ . The left-sided PICC catheter has been removed. There is an area of focal pleural thickening/pleural-based opacity within the left upper lung zone. Radiographic follow-up subsequent to failure treatment is recommended. IMPRESSION: 1. Congestive failure, pulmonary edema, and bilateral pleural effusions. 2. Subtle pleural based left upper lung zone opacity. Radiographic follow-up subsequent to failure treatment is recommended. Electronically signed by: Otto Galeano M.D. 08/22/2017 12:58 PM Dictated Date/Time: 08/22/2017 12:57 PM The status of this report is Signed. Echocardiogram 08/23/17 Interpretation Summary * Name: BRUCE YANEZ Study Date: 08/23/2017 06:30 AM BP: 116/75 mmHg * Patient Location: [facility]\\15\S\1 HR: 83 * : 1955 (M/d/yyyy) Gender: Male Height: 68 in * Age: 62 yrs Ethnicity: [place] Weight: 201 lb * Ordering Physician: Che Haddad * Referring Physician: Self, Referred * Performed By: Apurva Sanford RDCS * * Reason For Study: CHF * BSA: 2.0 m2 * Low normal left ventricular systolic function. * Mild concentric left ventricular hypertrophy. * Moderate left atrial dilatation. * Mild mitral regurgitation. * Trace tricuspid regurgitation. Procedure Details * A complete two-dimensional transthoracic echocardiogram was performed (2D, M-mode, Doppler and color flow Doppler). Left Ventricle * The left ventricle is normal in size. * There is mild concentric left ventricular hypertrophy. * Ejection Fraction = 50-55%. * Left ventricular systolic function is low normal. * The left ventricular wall motion is normal. * No regional wall motion abnormalities noted. Right Ventricle * The right ventricle is normal in size and function. * The right ventricular systolic function is normal as assessed by tricuspid annular plane systolic excursion (TAPSE) (normal >1.5 cm). Atria * The left atrium is moderately dilated. * Right atrial size is normal. * No ASD detected; PFO is not assessed. Mitral Valve * The mitral valve is normal. * There is no mitral valve stenosis. * There is mild mitral regurgitation. Tricuspid Valve * The tricuspid valve is normal. * There is no tricuspid stenosis. * There is trace tricuspid regurgitation. * Right ventricular systolic pressure is normal. Aortic Valve * The aortic valve opens well. * The aortic valve is trileaflet. * Aortic stenosis is absent. * No aortic regurgitation is present. Pulmonic Valve * The pulmonic valve is not well seen, but is grossly normal. * Pulmonic stenosis is absent. * There is no pulmonic valvular regurgitation. Great Vessels * The aortic root is normal size. Pericardium/Pleural * There is no pericardial effusion. Great Vessels * Normal inferior vena cava diameter and respiratory variation suggests normal central venous pressure. (Anisa Rogers, PA-C) Medication Reconciliation Changed Medications: Furosemide (Lasix) 20 Mg Tab 1 TAB PO UD for 30 Days, #45 TAB 1 Refill (Changed from: 20 MG; BID; Refills: ) Take 40 mg every morning and 20 mg every evening. Continued Medications: Aspirin (Aspirin) 81 Mg Tab 81 MG PO QAM Bupropion (Zyban) 150 Mg Tabcr 150 MG PO BID, TAB Celecoxib (CeleBREX) 200 Mg Cap 200 MG PO DAILY, CAP Diltiazem Hcl (Cardizem) 60 Mg Tab 1 TAB PO BID, TAB Gabapentin (Neurontin) 300 Mg Cap 300 MG PO BID, CAP Metformin Hcl (Glucophage) 1,000 Mg Tab 1000 MG PO BID, TAB Metoprolol Tartrate (Lopressor) 25 Mg Tab 25 MG PO BID, TAB Multivitamin (Multivitamin) Tab 1 TAB PO DAILY, TAB Ocuvite Preservision (Ocuvite Preservision) 1 Tab Tab 1 TAB PO BID, TAB Pravastatin Sodium (Pravastatin Sodium) 80 Mg Tab PO HS Tramadol (Ultram) 50 Mg Tab 50 MG PO Q4H PRN, TAB PRN PAIN Warfarin Sod (Jantoven) 6 Mg Tab 6 MG PO DAILY, TAB Discontinued Medications: Ferrous Sulfate (Iron) 325 Mg Tab 1 TAB PO DAILY Discharge Exam Pt evaluation today including: conversation w/ patient, physical exam, chart review, lab review, review of studies Pain: None PO Intake: good Voiding: no voiding problems The patient was seen and examined this morning. Pt reports feeling well today. He did wears O2 at 2 L overnight, but is hopeful that he doesn't have to wear this at home. He denies shortness of breaths, chest pain, palpitations, flutter. Pt hasn't gotten up to walk in the hallways today, so was encouraged to later. Nursing asked to do a 2step O2 test. Constitutional: No fever, No chills, No sweats, No fatigue Eyes: No diplopia, No problem reported ENT: No nasal symptoms, No trouble swallowing Respiratory: No cough, No wheezing, No shortness of breath, No dyspnea on exertion, No dyspnea at rest Cardiovascular: No chest pain, No edema, No palpitations Abdomen: No pain, No nausea, No vomiting, No diarrhea, No constipation Musculoskeletal: No joint pain Neurologic: No weakness, No numbness/tingling Endo: No fatigue Skin: No rash, No itch Objective Vital Signs Date Time Temp Pulse Resp B/P (MAP) Pulse Ox O2 Delivery O2 Flow Rate FiO2 08/23/17 07:21 36.9 83 18 116/75 (89) 93 Nasal Cannula 2.0 08/23/17 04:04 96 Room Air 08/23/17 03:08 36.7 86 18 121/74 (90) 92 08/23/17 00:06 37.6 72 18 111/67 (82) 86 Room Air 08/23/17 00:02 96 Room Air 08/22/17 20:00 96 Room Air 08/22/17 19:26 36.7 97 18 113/75 (88) 96 Room Air 08/22/17 16:00 93 Room Air 08/22/17 15:14 36.7 77 18 118/72 (87) 93 Room Air 08/22/17 14:40 78 20 126/64 97 08/22/17 14:13 78 20 126/64 97 Room Air 08/22/17 14:10 Room Air 08/22/17 13:28 66 18 102/62 93 Room Air 08/22/17 12:47 72 08/22/17 12:34 97 Room Air 08/22/17 12:34 98 Room Air 08/22/17 12:34 98 08/22/17 12:13 36.7 72 18 108/70 93 Room Air Physical Exam General Appearance: WD/WN, no apparent distress Eyes: PERRL, EOMI ENT: hearing grossly normal, pharynx normal Neck: supple, no JVD Respiratory/Chest: lungs clear, no respiratory distress, no accessory muscle use, + pertinent finding (on room air) Cardiovascular: no murmur, + irregularly irregular (rate controlled) Abdomen: normal bowel sounds, non tender, soft Extremities: non-tender, no pedal edema, + pertinent finding (Chronic venous stasis changes) Neurologic/Psychiatric: alert, normal mood/affect, oriented x 3 (Anisa Rogers, TREY) Hospital Course H&P History of Present Illness Source: patient, family (), clinic records, hospital records Patient is a pleasant 62 y/o male, with PMHx of HTN, T2DM w/ neuropathy, chronic anemia, systolic CHF, a.fib, HLD, h/o tobacco abuse, CAD s/p stents to LAD x2, who presented to the ED because of worsening SOB w/ activity x6 weeks. Patient notes yesterday, SOB severely worsened. He went to the football game which required a lot of walking and he was very SOB. He notes last night even rolling over in bed caused him to become SOB. He does have a h/o gastric bypass and notes his weight is usually around 185lb- today around 200lb. He has been taking his medication as prescribed. Patient has a h/o chronic anemia- unsure if he has ever been worked up but states he is to be on an iron supplement, which he has not been taking. He denies any melena or BRBPR. Patient denies any fever, chills, sweats, lightheadedness, dizziness, vision changes, CP, palpitations, edema, wheezing, cough, abdominal pain, nausea, vomiting, diarrhea , urinary symptoms, melena, numbness/tingling, weakness, muscle/joint pain, anxiety/depression, active bleeding, or new skin discoloration/changes. Physical Exam Vital Signs Date Time Temp Pulse Resp B/P (MAP) Pulse Ox O2 Delivery O2 Flow Rate FiO2 08/22/17 14:13 78 20 126/64 97 Room Air 08/22/17 13:28 66 18 102/62 93 Room Air 08/22/17 12:47 72 08/22/17 12:34 97 Room Air 08/22/17 12:34 98 Room Air 08/22/17 12:34 98 08/22/17 12:13 36.7 72 18 108/70 93 Room Air General Appearance: no apparent distress Head: normocephalic, atraumatic Eyes: PERRL ENT: hearing grossly normal Neck: supple Respiratory/Chest: no respiratory distress, no accessory muscle use, + crackles (bilateral lung bases ) Cardiovascular: + irregularly irregular (rate controlled) Abdomen/GI: normal bowel sounds, non tender, soft Back: normal inspection Extremities/Musculoskelatal: no calf tenderness, + swelling (+1 pitting edema of bilateral lower extremities ), + pertinent finding (chronic stasis changes to bilateral lower extremities ) Neurologic/Psych: alert, normal mood/affect, oriented x 3 Skin: warm/dry, no rash, + pallor Hospital Course: Patient is a pleasant 62 y/o male, with PMHx of HTN, T2DM w/ neuropathy, chronic anemia, systolic CHF, a.fib, HLD, h/o tobacco abuse, CAD s/p stents to LAD x2, who presented to the ED because of worsening SOB w/ activity x6 weeks. Acute on chronic systolic CHF: - Cardiac biomarkers negative x 3 - Follow EKG QAM and PRN for chest pain - O2 protocol - IV Lasix 40 mg BID transitioned to 20 mg Po QPM and 40 mg QAM - Outs = 2.3 L cumulative, and weight is decreasing - continue daily weights - ECHO from 08/23/17 * Low normal left ventricular systolic function. * Mild concentric left ventricular hypertrophy. * Moderate left atrial dilatation. * Mild mitral regurgitation. * Trace tricuspid regurgitation. Chronic anemia- baseline hgb 10.0: - Follow CBC - remains stable in high 9s. - Hemoccult negative - B12 & folate adequate - Iron studies: total iron and transferrin sat are low - TIBC and and transferrin and ferritin are adequate - can dc iron supplementation- pt hasn't truely been taking iron for the past year. HTN CAD s/p stents - Continue ASA 81 mg daily, Cardizem 60 mg BID, Lopressor 25 mg BID HLD - Pravastatin 80 mg daily Chronic Atrial Fibrillation - EKG reviewed this am in afib, rate controlled - INR supratherapeutic at 4.7 at time of admission - At time of discharge INR= 3.1 - can resume small dose of coumadin tonight- 4mg - follow PT/INR and adjust Coumadin dosage PRN for INR goal 2-3 - have repeat INR drawn on 08/25 Arthritis - Continue Celebrex 200 mg daily, Tramadol 50 mg q4 hrs PRN pain T2DM w/ neuropathy: - Hold Metformin 1000 mg BID - BSG ACHS and ISS - Continue Gabapentin 300 mg BID h/o tobacco abuse: Continue Zyban 150 mg BID GI prophylaxis: Protonix 40 mg daily DVT prophylaxis: TEDs/SCDs; Coumadin held due to supratherapeutic INR/anemia Code Status: FULL CODE Dispo: From home, lives w/ - no discharge needs anticipated, d/c today Total Time Spent: Greater than 30 minutes This includes examination of the patient, discharge planning, medication reconciliation, and communication with other providers. (Anisa Rogers PA-C) I examined patient and discussed my analysis and discharge plan with patient and APC. I agree with above note. My exam did not differ from the exam noted above. I answered all questions from patient. (Roberto Sung M.D.) Discharge Instructions Please refer to the electronic Patient Visit Report (Discharge Instructions) for additional information. (Anias Rogers, TAYLOR-C) Additional Copies To Karissa Dillard, Mari
[2017-08-23] MEDS ORDERED: WARFARIN SOD 4 MG TAB PO SCH (16:00)
[2017-08-23] MEDS ORDERED: FUROSEMIDE 20 MG TAB PO SCH (18:00)
[2017-08-24] MEDS ORDERED: FUROSEMIDE 40 MG TAB PO SCH (09:00)
== END 2017-08-23 16:00 | disposition home or self-care (01) ==
LOC: C.EDB 11:55 → C.2T 14:18 → ENRESERV 14:37
PROVIDERS: ADMIT Hospitalist; ATTEND Hospitalist
DX: I50.23 Acute on chronic systolic (congestive) heart failure (principal); I11.0 Hypertensive heart disease with heart failure; D64.9 Anemia, unspecified; I48.91 Unspecified atrial fibrillation; I25.10 Atherosclerotic heart disease of native coronary artery without angina pectoris; E78.5 Hyperlipidemia, unspecified; E11.42 Type 2 diabetes mellitus with diabetic polyneuropathy; M19.90 Unspecified osteoarthritis, unspecified site; Z89.439 Acquired absence of unspecified foot; Z87.891 Personal history of nicotine dependence; Z95.5 Presence of coronary angioplasty implant and graft; Z79.01 Long term (current) use of anticoagulants; Z79.82 Long term (current) use of aspirin; Z79.84 Long term (current) use of oral hypoglycemic drugs; Z79.899 Other long term (current) drug therapy

== ENCOUNTER → 2017-11-15 | Outpatient (CLI) | payer OTHER ==
[~2017-11-15] MED LIST changes: -AMOX500T PO; -BUPR150T47 PO; +CLB/200 PO; +DABI150C PO; +DILT120C68 PO; -DILT40TA PO; +FERR325T5 PO; +FRS/40 PO; +LISI-729 PO; +MAGN400T6 PO; -METR-163 PO; +MULT-190 PO; +MULT-506 PO; +NTRGSL/4 UT; +VITAMIN B12 SL; -WARF4TAB8 PO; +WLLSR/150 PO
[2017-11-15 12:34] LABS: HEMOGLOBIN A1C 6.4 % (4.5-5.6)
== END | disposition home or self-care (01) ==
LOC: C.LAB 10:44
PROVIDERS: ATTEND Physician Assistant
DX: D50.9 Iron deficiency anemia, unspecified (principal); E78.00 Pure hypercholesterolemia, unspecified; I48.91 Unspecified atrial fibrillation

== ENCOUNTER → 2017-11-17 | Day surgery (SDC) | payer OTHER ==
[2017-11-05 11:16] VITALS: Ht 175.3 cm; Wt 84.1 kg
[~2017-11-17] VITALS: Ht 175.3 cm; Wt 84.1 kg
[~2017-11-17] MED LIST changes: +SODIUM CHLORIDE 0.9% 500ML 500 ML IV ONE
--- NOTE | 2017-11-17 12:14 | Endo History and Physical ---
History & Physical Date of Service: Nov 17, 2017. Chief Complaint: Anemia Referring Physician: NAKUL Middleton History of Present Illness 62 yo CM who presents for colonoscopy secondary to anemia. Past Medical History Diabetes, Osteoporosis, Arthritis, High Cholesterol, Sleep Apnea, Heart Disease , Hypertension, [place] Past Surgical History Hx Cardiac Surgery: Yes (CARDIAC CATH-2 STENTS) Hx Internal Defibrillator: No Hx Pacemaker: No Hx Abdominal Surgery: Yes (GASTRIC BYPASS) Hx of Implantable Prosthesis: No Hx Post-Op Nausea and Vomiting: No Hx Cancer Surgery: No Hx Thoracic Surgery: No Hx Orthopedic: Yes (ULCER DEBRIDEMENT RT/LEFT FOOT, ) Hx Urinary Tract Surgery: No Family History None Social History Smoking Status: Former Smoker Hx Substance Use: No Hx Alcohol Use: No Allergies Coded Allergies: No Known Allergies (Verified , 11/17/17) Current Medications Reported Home Medications Medications Dose Route/Sig Max Daily Dose Days Date Category Wellbutrin Sr (Bupropion Hcl) 150 Mg Tabcr 150 Mg PO BID 11/05/17 Reported [Vitamin B12] 1 Dose SL WK 11/05/17 Reported Ultram (Tramadol HCl) 50 Mg Tab 50 Mg PO Q6H PRN 11/05/17 Reported Ocuvite Preservision (Multivitamins/Minerals) 1 Tab Tab 1 Tab PO BID 11/05/17 Reported Pravastatin Sodium 80 Mg Tab 1 Tab PO HS 90 11/05/17 Reported Pradaxa (Dabigatran Etexilate Mesylate) 150 Mg Cap 150 Mg PO BID 11/05/17 Reported Nitrostat (Nitroglycerin) 0.4 Mg Tab 0.4 Mg UT PRN PRN 11/05/17 Reported Multivitamin (Multivitamins) Tab 1 Tab PO QAM 11/05/17 Reported Mag-Ox (Magnesium Oxide) 400 Mg Tab 400 Mg PO BID 11/05/17 Reported Zestril (Lisinopril) 5 Mg Tab 5 Mg PO QAM 11/05/17 Reported Ferrous Sulfate 325 Mg Tab 1 Tab PO BID 11/05/17 Reported Lasix (Furosemide) 40 Mg Tab 40 Mg PO QAM 11/05/17 Reported Lasix (Furosemide) 20 Mg Tab 20 Mg PO DAILY AFTERNOON 11/05/17 Reported Tiazac (Diltiazem HCl) 120 Mg Capcr 120 Mg PO BID 11/05/17 Reported CeleBREX (Celecoxib) 200 Mg Cap 200 Mg PO QAM 08/22/17 Reported Aspirin 81 Mg Tab 81 Mg PO QAM 05/24/13 Reported Lopressor (Metoprolol Tartrate) 25 Mg Tab 25 Mg PO BID 05/24/13 Reported Neurontin (Gabapentin) 300 Mg Cap 300 Mg PO BID 05/24/13 Reported Glucophage (Metformin Hcl) 1,000 Mg Tab 1,000 Mg PO BID 05/24/13 Reported Vital Signs Weight (Kilograms): 84.09 Height (Feet): 5 Height (Inches): 9 Date Time Temp Pulse Resp B/P (MAP) Pulse Ox O2 Delivery O2 Flow Rate FiO2 11/17/17 11:30 36.7 80 20 112/68 (83) 98 Room Air Physical Exam General Appearance: WD/WN, no apparent distress Respiratory/Chest: Auscultation: breath sounds normal Cardiovascular: Heart Auscultation: RRR Abdomen: Bowel Sounds: normal Inspection & Palpation: soft, non-distended, no tenderness, guarding & rebound Assessment and Plan Assessment: 62 yo CM who presents for colonoscopy secondary to anemia. Plan: Proceed with colonoscopy.
--- NOTE | 2017-11-17 13:25 | Discharge Instructions ---
Endoscopy Patient Instructions Date / Procedure(s) Performed Nov 17, 2017. Colonoscopy Allergy Information Coded Allergies: No Known Allergies (Verified , 11/17/17) Discharge Date / Findings Nov 17, 2017. Colon ulcer s/p biopsies and endoclip placement x3 Medication Instructions Stopped Medication(s): Pradaxa - LD 11/14/17 0800 ASA 81 mg LD 11/16/17 - 0730 Metformin LD - 11/16/17 OK to resume all medications today as prescribed Reported Home Medications Medications Dose Route/Sig Max Daily Dose Days Date Category Wellbutrin Sr (Bupropion Hcl) 150 Mg Tabcr 150 Mg PO BID 11/05/17 Reported [Vitamin B12] 1 Dose SL WK 11/05/17 Reported Ultram (Tramadol HCl) 50 Mg Tab 50 Mg PO Q6H PRN 11/05/17 Reported Ocuvite Preservision (Multivitamins/Minerals) 1 Tab Tab 1 Tab PO BID 11/05/17 Reported Pravastatin Sodium 80 Mg Tab 1 Tab PO HS 90 11/05/17 Reported Pradaxa (Dabigatran Etexilate Mesylate) 150 Mg Cap 150 Mg PO BID 11/05/17 Reported Nitrostat (Nitroglycerin) 0.4 Mg Tab 0.4 Mg UT PRN PRN 11/05/17 Reported Multivitamin (Multivitamins) Tab 1 Tab PO QAM 11/05/17 Reported Mag-Ox (Magnesium Oxide) 400 Mg Tab 400 Mg PO BID 11/05/17 Reported Zestril (Lisinopril) 5 Mg Tab 5 Mg PO QAM 11/05/17 Reported Ferrous Sulfate 325 Mg Tab 1 Tab PO BID 11/05/17 Reported Lasix (Furosemide) 40 Mg Tab 40 Mg PO QAM 11/05/17 Reported Lasix (Furosemide) 20 Mg Tab 20 Mg PO DAILY AFTERNOON 11/05/17 Reported Tiazac (Diltiazem HCl) 120 Mg Capcr 120 Mg PO BID 11/05/17 Reported CeleBREX (Celecoxib) 200 Mg Cap 200 Mg PO QAM 08/22/17 Reported Aspirin 81 Mg Tab 81 Mg PO QAM 05/24/13 Reported Lopressor (Metoprolol Tartrate) 25 Mg Tab 25 Mg PO BID 05/24/13 Reported Neurontin (Gabapentin) 300 Mg Cap 300 Mg PO BID 05/24/13 Reported Glucophage (Metformin Hcl) 1,000 Mg Tab 1,000 Mg PO BID 05/24/13 Reported Provider Instructions Activity Restrictions - No exercising or heavy lifting for 24 hours. - Do not drink alcohol the day of the procedure. - Do not drive a car or operate machinery until the day after the procedure. - Do not make any important decisions or sign important papers in 24 hours after the procedure. Following Day: - Return to full activity which may include returning to work/school. Diet Start your diet with liquids and light foods (jello, soup, juice, toast). Then eat your usual diet if not nauseated. Treatment For Common After Affects For mild abdominal pain, bloating, or excessive gas: - Rest - Eat lightly - Lie on right side Follow-Up Information Follow-up with NAKUL Middleton as scheduled Anesthesia Information What You Should Know You have had a procedure that required some medicine to reduce anxiety and discomfort. This treatment is called moderate sedation. After receiving the treatment, you may be sleepy, but you will be able to breathe on your own. The effects of the treatment may last for several hours. Follow these instructions along with Activity/Diet recommendations noted above: * Do NOT do anything where dizziness or clumsiness would be dangerous. * Rest quietly at home today, then you can be up and about tomorrow. * Have a responsible person stay with you the rest of today. * You may have had an I.V. today. If so, you may take the dressing off later today. Recommendations Call your doctor if: * Trouble breathing * Continuous vomiting for more than 24 hours * Temperature above 101 degrees * Severe abdominal pain or bloating * Pain not relieved by pain medicine ordered * There is increased drainage or redness from any incision * A large amount of rectal bleeding greater than 2-3 tablespoons. (If you had a polyp/s removed or have hemorrhoids, a small amount of blood - from the rectum is to be expected.) * You have any unanswered questions or concerns. IN THE EVENT OF A SERIOUS EMERGENCY, GO TO THE NEAREST EMERGENCY ROOM Your discharge instructions were prepared by provider Mikhail Salazar. Patient Instructions Signature Page Leonard Garza Patient (or Guardian) Signature/Date: I have read and understand the instructions given to me by my caregivers. Caregiver/RN/Doctor Signature/Date: The above-named patient and/or guardian has received patient instructions on this date. + Original Patient Signature Page (only) stays with chart. Please make copy for patient.
--- NOTE | 2017-11-17 13:32 | GI REPORT ---
Procedure Date: 11/17/2017 12:46 PM Procedure: Colonoscopy Indications: Iron deficiency anemia secondary to chronic blood loss, Iron deficiency anemia Medicines: Monitored Anesthesia Care Complications: No immediate complications. Estimated Blood Loss: Estimated blood loss: none. Procedure: Pre-Anesthesia Assessment: - Prior to the procedure, a History and Physical was performed, and patient medications and allergies were reviewed. The patient's tolerance of previous anesthesia was also reviewed. The risks and benefits of the procedure and the sedation options and risks were discussed with the patient. All questions were answered, and informed consent was obtained. Prior Anticoagulants: The patient last took aspirin 1 day and Pradaxa (dabigatran) 3 days prior to the procedure. ASA Grade Assessment: III - A patient with severe systemic disease. After reviewing the risks and benefits, the patient was deemed in satisfactory condition to undergo the procedure. After I obtained informed consent, the scope was passed under direct vision. Throughout the procedure, the patient's blood pressure, pulse, and oxygen saturations were monitored continuously. The scope was introduced through the anus and advanced to the terminal ileum. The colonoscopy was performed without difficulty. The patient tolerated the procedure well. The quality of the bowel preparation was good. The terminal ileum, ileocecal valve, appendiceal orifice, and rectum were photographed. Findings: A single (solitary) ten mm ulcer was found in the ascending colon. No bleeding was present. Stigmata of recent bleeding were present. Biopsies were taken with a cold forceps for histology. For hemostasis, three hemostatic clips were successfully placed (MR conditional). There was no bleeding at the end of the procedure. Impression: - A single (solitary) ulcer in the ascending colon. Biopsied. Clips (MR conditional) were placed. Recommendation: - Resume previous diet. - Continue present medications. - Repeat colonoscopy for surveillance based on pathology results. - Return to primary care physician as previously scheduled. Mikhail Salazar DO 11/17/2017 1:31:38 PM This report has been signed electronically. Note Initiated On: 11/17/2017 12:46 PM I attest to the content of the Intraoperative Record and orders documented therein, exceptions below
[2017-11-17 13:54] VITALS: BP 118/72; PULSE 77; O2SAT 97
--- NOTE | 2017-11-17 14:14 | Anesthesiology Progress Note ---
Anesthesia Post Op Note Date & Time Nov 17, 2017 at 14:14 Vital Signs Pain Intensity: 0 Vital Signs Past 12 Hours Date Time Temp Pulse Resp B/P (MAP) Pulse Ox O2 Delivery O2 Flow Rate FiO2 11/17/17 13:54 77 16 118/72 (87) 97 Room Air 11/17/17 13:39 73 18 115/68 (84) 97 Room Air 11/17/17 13:24 82 16 105/67 (80) 97 Room Air 11/17/17 11:30 36.7 80 20 112/68 (83) 98 Room Air Notes Mental Status: alert / awake / arousable, participated in evaluation Pt Amnestic to Procedure: Yes Nausea / Vomiting: adequately controlled Pain: adequately controlled Airway Patency, RR, SpO2: stable & adequate BP & HR: stable & adequate Hydration State: stable & adequate Anesthetic Complications: no major complications apparent
== END | disposition home or self-care (01) ==
LOC: C.GI 10:10
PROVIDERS: ATTEND Internal Medicine
DX: K63.3 Ulcer of intestine (principal); D50.0 Iron deficiency anemia secondary to blood loss (chronic); I48.91 Unspecified atrial fibrillation; I25.10 Atherosclerotic heart disease of native coronary artery without angina pectoris; I25.2 Old myocardial infarction; I11.0 Hypertensive heart disease with heart failure; I50.9 Heart failure, unspecified; E78.00 Pure hypercholesterolemia, unspecified; E11.9 Type 2 diabetes mellitus without complications; G47.30 Sleep apnea, unspecified; K21.9 Gastro-esophageal reflux disease without esophagitis; M81.0 Age-related osteoporosis without current pathological fracture; M19.90 Unspecified osteoarthritis, unspecified site; Z95.5 Presence of coronary angioplasty implant and graft; Z98.84 Bariatric surgery status; Z87.891 Personal history of nicotine dependence; Z79.01 Long term (current) use of anticoagulants; Z79.82 Long term (current) use of aspirin; Z79.84 Long term (current) use of oral hypoglycemic drugs; Z79.899 Other long term (current) drug therapy

== ENCOUNTER → 2017-12-09 | Outpatient (CLI) | payer OTHER ==
[~2017-12-09] MED LIST changes: -SODIUM CHLORIDE 0.9% 500ML 500 ML IV ONE
--- NOTE | 2017-12-09 17:31 | DIAGNOSTIC IMAGING REPORT ---
R FOOT MIN 3 VIEWS ROUTINE CLINICAL HISTORY: 62 years-old Male presenting with DM, NEUROPATHY. TECHNIQUE: Frontal, oblique, and lateral views of the right foot were obtained. COMPARISON: 09/26/2016. FINDINGS: Chronic postsurgical changes of partial resection of the base of the fifth metatarsal. An overlying soft tissue defect in this region is suspected. Extensive subcutaneous edema along the lateral foot. Osteopenia. Increased sclerosis of the residual base of the fifth metatarsal as well as the proximal to mid aspect of the fourth metatarsal suggested. No acute fracture or malalignment. No advanced degenerative change. Atherosclerosis. IMPRESSION: 1. Postsurgical changes of the base of the fifth metatarsal. 2. Suggestion of increased sclerosis of the residual base of the fifth metatarsal as well as the proximal to mid aspect of the fourth metatarsal. This could suggest osteonecrosis. This be better evaluated with MR. 3. No acute osseous injury. 4. Suspected soft tissue defect/ulcer along the lateral foot with extensive subcutaneous edema. Cellulitis cannot be excluded. Electronically signed by: Chai Roland M.D. 12/09/2017 5:30 PM Dictated Date/Time: 12/09/2017 5:27 PM
== END | disposition home or self-care (01) ==
LOC: C.RAD 16:54
PROVIDERS: ATTEND Internal Medicine Endocrinology, Diabetes & Metabolism
DX: E11.9 Type 2 diabetes mellitus without complications (principal); G62.9 Polyneuropathy, unspecified

== ENCOUNTER → 2018-02-21 | Day surgery (SDC) | payer OTHER ==
[2018-02-10 08:52] VITALS: Ht 175.3 cm; Wt 86.4 kg
[~2018-02-21] VITALS: Ht 175.3 cm; Wt 86.4 kg
[~2018-02-21] MED LIST changes: +SODIUM CHLORIDE 0.9% 500ML 500 ML IV ONE
--- NOTE | 2018-02-21 11:36 | Endo History and Physical ---
History & Physical Date of Service: Feb 21, 2018. Chief Complaint: anemia Referring Physician: Rachell MOTA History of Present Illness 62 yo CM who presents for colonoscopy secondary to anemia. Past Medical History Diabetes, Osteoporosis, Arthritis, High Cholesterol, Sleep Apnea, Heart Disease , Hypertension, MT Past Surgical History Hx Cardiac Surgery: Yes (CARDIAC CATH-2 STENTS) Hx Internal Defibrillator: No Hx Pacemaker: No Hx Abdominal Surgery: Yes (GASTRIC BYPASS) Hx of Implantable Prosthesis: No Hx Post-Op Nausea and Vomiting: No Hx Cancer Surgery: No Hx Thoracic Surgery: No Hx Orthopedic: Yes (ULCER DEBRIDEMENT RT/LEFT FOOT) Hx Urinary Tract Surgery: No Family History None Social History Smoking Status: Former Smoker Hx Substance Use: No Hx Alcohol Use: No Allergies Coded Allergies: No Known Allergies (Verified , 02/10/18) Current Medications Reported Home Medications Medications Dose Route/Sig Max Daily Dose Days Date Category Wellbutrin Sr (Bupropion Hcl) 150 Mg Tabcr 150 Mg PO BID 11/05/17 Reported [Vitamin B12] Unknown Strength Unknown Dose SL WK 11/05/17 Reported Ultram (Tramadol HCl) 50 Mg Tab 50 Mg PO Q6H PRN 11/05/17 Reported Ocuvite Preservision (Multivitamins/Minerals) 1 Tab Tab 1 Tab PO BID 11/05/17 Reported Pravastatin Sodium 80 Mg Tab 1 Tab PO HS 90 11/05/17 Reported Pradaxa (Dabigatran Etexilate Mesylate) 150 Mg Cap 150 Mg PO BID 11/05/17 Reported Nitrostat (Nitroglycerin) 0.4 Mg Tab 0.4 Mg UT PRN PRN 11/05/17 Reported Multivitamin (Multivitamins) Tab 1 Tab PO QAM 11/05/17 Reported Mag-Ox (Magnesium Oxide) 400 Mg Tab 400 Mg PO BID 11/05/17 Reported Zestril (Lisinopril) 5 Mg Tab 5 Mg PO QAM 11/05/17 Reported Ferrous Sulfate 325 Mg Tab 1 Tab PO BID 11/05/17 Reported Lasix (Furosemide) 40 Mg Tab 40 Mg PO QAM 11/05/17 Reported Lasix (Furosemide) 20 Mg Tab 20 Mg PO DAILY AFTERNOON 11/05/17 Reported Tiazac (Diltiazem HCl) 120 Mg Capcr 120 Mg PO BID 11/05/17 Reported Aspirin 81 Mg Tab 81 Mg PO QAM 05/24/13 Reported Lopressor (Metoprolol Tartrate) 25 Mg Tab 25 Mg PO BID 05/24/13 Reported Neurontin (Gabapentin) 300 Mg Cap 300 Mg PO BID 05/24/13 Reported Glucophage (Metformin Hcl) 1,000 Mg Tab 1,000 Mg PO BID 05/24/13 Reported Vital Signs Weight (Kilograms): 86.36 Height (Feet): 5 Height (Inches): 9 Date Time Temp Pulse Resp B/P (MAP) Pulse Ox O2 Delivery O2 Flow Rate FiO2 02/21/18 11:08 36.6 106 20 115/71 (86) 99 Room Air Physical Exam General Appearance: WD/WN, no apparent distress Respiratory/Chest: Auscultation: breath sounds normal Cardiovascular: Heart Auscultation: RRR Abdomen: Bowel Sounds: normal Inspection & Palpation: soft, non-distended, no tenderness, guarding & rebound Assessment and Plan Assessment: 62 yo CM who presents for colonoscopy secondary to anemia. Plan: Proceed with colonoscopy.
--- NOTE | 2018-02-21 12:48 | Discharge Instructions ---
Endoscopy Patient Instructions Date / Procedure(s) Performed Feb 21, 2018. Colonoscopy Allergy Information Coded Allergies: No Known Allergies (Verified , 02/10/18) Discharge Date / Findings Feb 21, 2018. Diverticulosis Medication Instructions Stopped Medication(s): stopped Pradaxa 1799,ASA Wednesday.Metformin last night OK to resume all medications today as prescribed Provider Instructions Activity Restrictions - No exercising or heavy lifting for 24 hours. - Do not drink alcohol the day of the procedure. - Do not drive a car or operate machinery until the day after the procedure. - Do not make any important decisions or sign important papers in 24 hours after the procedure. Following Day: - Return to full activity which may include returning to work/school. Diet Start your diet with liquids and light foods (jello, soup, juice, toast). Then eat your usual diet if not nauseated. Treatment For Common After Affects For mild abdominal pain, bloating, or excessive gas: - Rest - Eat lightly - Lie on right side Follow-Up Information Follow-up with Rachell MOTA as scheduled Anesthesia Information What You Should Know You have had a procedure that required some medicine to reduce anxiety and discomfort. This treatment is called moderate sedation. After receiving the treatment, you may be sleepy, but you will be able to breathe on your own. The effects of the treatment may last for several hours. Follow these instructions along with Activity/Diet recommendations noted above: * Do NOT do anything where dizziness or clumsiness would be dangerous. * Rest quietly at home today, then you can be up and about tomorrow. * Have a responsible person stay with you the rest of today. * You may have had an I.V. today. If so, you may take the dressing off later today. Recommendations Call your doctor if: * Trouble breathing * Continuous vomiting for more than 24 hours * Temperature above 101 degrees * Severe abdominal pain or bloating * Pain not relieved by pain medicine ordered * There is increased drainage or redness from any incision * A large amount of rectal bleeding greater than 2-3 tablespoons. (If you had a polyp/s removed or have hemorrhoids, a small amount of blood - from the rectum is to be expected.) * You have any unanswered questions or concerns. IN THE EVENT OF A SERIOUS EMERGENCY, GO TO THE NEAREST EMERGENCY ROOM Your discharge instructions were prepared by provider Mikhail Salazar. Patient Instructions Signature Page Leonard Garza Patient (or Guardian) Signature/Date: I have read and understand the instructions given to me by my caregivers. Caregiver/RN/Doctor Signature/Date: The above-named patient and/or guardian has received patient instructions on this date. + Original Patient Signature Page (only) stays with chart. Please make copy for patient.
--- NOTE | 2018-02-21 12:51 | GI REPORT ---
Procedure Date: 02/21/2018 12:03 PM Procedure: Colonoscopy Indications: Iron deficiency anemia Medicines: Monitored Anesthesia Care Complications: No immediate complications. Estimated Blood Loss: Estimated blood loss: none. Procedure: Pre-Anesthesia Assessment: - Prior to the procedure, a History and Physical was performed, and patient medications and allergies were reviewed. The patient's tolerance of previous anesthesia was also reviewed. The risks and benefits of the procedure and the sedation options and risks were discussed with the patient. All questions were answered, and informed consent was obtained. Prior Anticoagulants: The patient last took aspirin 3 days and Pradaxa (dabigatran) 4 days prior to the procedure. ASA Grade Assessment: III - A patient with severe systemic disease. After reviewing the risks and benefits, the patient was deemed in satisfactory condition to undergo the procedure. After I obtained informed consent, the scope was passed under direct vision. Throughout the procedure, the patient's blood pressure, pulse, and oxygen saturations were monitored continuously. The Scope was introduced through the anus and advanced to the terminal ileum. The colonoscopy was performed without difficulty. The patient tolerated the procedure well. The quality of the bowel preparation was fair. The terminal ileum, ileocecal valve, appendiceal orifice, and rectum were photographed. Findings: The perianal and digital rectal examinations were normal. Multiple small-mouthed diverticula were found in the sigmoid colon. The exam was otherwise without abnormality. Impression: - Preparation of the colon was fair. - Diverticulosis in the sigmoid colon. - The examination was otherwise normal. - No specimens collected. Recommendation: - Resume previous diet. - Continue present medications. - Repeat colonoscopy in 1 year because the bowel preparation was poor. - Return to primary care physician as previously scheduled. Mikhail Salazar DO 02/21/2018 12:51:03 PM This report has been signed electronically. Note Initiated On: 02/21/2018 12:03 PM I attest to the content of the Intraoperative Record and orders documented therein, exceptions below
[2018-02-21 13:05] VITALS: BP 107/67; PULSE 88; O2SAT 97
--- NOTE | 2018-02-21 13:23 | Anesthesiology Progress Note ---
Anesthesia Post Op Note Date & Time Feb 21, 2018 at 13:22 Vital Signs Pain Intensity: 0 Vital Signs Past 12 Hours Date Time Temp Pulse Resp B/P (MAP) Pulse Ox O2 Delivery O2 Flow Rate FiO2 02/21/18 13:05 88 18 107/67 (80) 97 Room Air 02/21/18 12:50 95 18 107/81 (90) 96 Room Air 02/21/18 12:35 98 16 102/67 (79) 96 Room Air 02/21/18 11:08 36.6 106 20 115/71 (86) 99 Room Air Notes Mental Status: alert / awake / arousable, participated in evaluation Pt Amnestic to Procedure: Yes Nausea / Vomiting: adequately controlled Pain: adequately controlled Airway Patency, RR, SpO2: stable & adequate BP & HR: stable & adequate Hydration State: stable & adequate Anesthetic Complications: no major complications apparent
== END | disposition home or self-care (01) ==
LOC: C.GI 10:39
PROVIDERS: ATTEND Internal Medicine
DX: Z12.11 Encounter for screening for malignant neoplasm of colon (principal); D50.9 Iron deficiency anemia, unspecified; K57.30 Diverticulosis of large intestine without perforation or abscess without bleeding; I25.10 Atherosclerotic heart disease of native coronary artery without angina pectoris; I10 Essential (primary) hypertension; E11.9 Type 2 diabetes mellitus without complications; G47.33 Obstructive sleep apnea (adult) (pediatric); I48.91 Unspecified atrial fibrillation; M81.0 Age-related osteoporosis without current pathological fracture; M19.90 Unspecified osteoarthritis, unspecified site; E78.00 Pure hypercholesterolemia, unspecified; Z87.891 Personal history of nicotine dependence; Z79.82 Long term (current) use of aspirin

== ENCOUNTER → 2018-05-19 | Outpatient (CLI) | payer OTHER ==
[~2018-05-19] MED LIST changes: -CLB/200 PO; +CLIN150C15 PO; -SODIUM CHLORIDE 0.9% 500ML 500 ML IV ONE
--- NOTE | 2018-05-19 12:02 | DIAGNOSTIC IMAGING REPORT ---
RIGHT FOREFOOT MRI WITHOUT INTRAVENOUS CONTRAST HISTORY: R FOOT NON HEALING WOUND HX OF OSTEO TECHNIQUE: Multiplanar multisequence MRI of the right forefoot was performed without the use of intravenous contrast. COMPARISON STUDY: Right foot 12/09/2017. FINDINGS: There is again noted irregularity at the distal cuboid bone and fusion at the bases of the fourth and fifth metatarsals. There appears to be partial resection of the base of the fifth metatarsal. This remains unchanged. Minimal marrow edema within the proximal to mid third through fifth metacarpals. However, there is no cortical destruction or erosions identified at this time. No abnormal T1 marrow signal identified to suggest osteomyelitis. No acute fracture or dislocation identified. Mild plantar skin thickening and subcutaneous edema at the level of the base of the fourth and fifth metatarsals. There is also punctate metallic artifact within the skin at this location best seen on axial image 27. This raises the possibility of a small metallic foreign body. There is a 9 x 5 mm T2 hyperintense, T1 hypointense focus within the subcutaneous fat along the lateral aspect of the midfoot. This abuts the lateral aspect of the base of the fifth metatarsal. This is indeterminate but does not clearly demonstrate a thickened wall to suggest an abscess. This could represent a tiny postoperative seroma. The flexor and extensor tendons appear grossly intact. IMPRESSION: 1. No MR evidence for osteomyelitis within the right forefoot. 2. There is again noted irregularity at the distal cuboid bone and fusion at the bases of the fourth and fifth metatarsals. There appears to be partial resection of the base of the fifth metatarsal. This favors old postoperative change. 3. Minimal marrow edema within the proximal to mid third through fifth metacarpals. This is nonspecific but could represent stress-related changes or old postoperative changes. 4. No acute fracture or dislocation identified. 5. Punctate metallic artifact at the plantar skin surface at the level of the base of the fourth and fifth metatarsals. This is deep to the skin marker. There is associated skin thickening and subcutaneous edema. This raises the possibility of a metallic foreign body. Follow-up right foot radiograph is recommended for further evaluation. 6. A 9 x 5 mm cystic focus within the lateral aspect of the midfoot abutting the base of the fifth metatarsal. This is nonspecific but favors a postoperative seroma. Electronically signed by: Joselo Broderick M.D. 05/19/2018 12:01 PM Dictated Date/Time: 05/19/2018 11:50 AM
== END | disposition home or self-care (01) ==
LOC: C.MRI 10:03
PROVIDERS: ATTEND Emergency Medicine
DX: S91.301A Unspecified open wound, right foot, initial encounter (principal); X58.XXXA Exposure to other specified factors, initial encounter; R93.7 Abnormal findings on diagnostic imaging of other parts of musculoskeletal system

== ENCOUNTER 2019-05-03 18:29 | Inpatient (IN) ==
[2019-05-03] MEDS ORDERED: ACETAMINOPHEN 500 MG TAB PO STA (18:57)
[2019-05-03] MEDS ORDERED: SODIUM CHLORIDE 0.9% 1000ML 1,000 ML IV SCH (19:00)
[2019-05-03] MEDS ORDERED: dilTIAZem HCl 5 MG/ML 5 ML VIAL IV STA (19:01)
[2019-05-03] MEDS: dilTIAZem HCl 125 MG in DEXTROSE 5% 100 ML IV SCH (19:18)
[2019-05-03 19:27] LABS: Basophils # (auto) 0.01 K/uL (0-0.2); Basophils % (auto) 0.1 %; Hematocrit (blood only) 36.4 % (42-52); Hemoglobin 11.9 g/dL (14.0-18.0); Immature Granulocytes # (auto) 0.04 K/uL (0.00-0.02); Immature Granulocytes % (auto) 0.3 %; Lymphocytes # (auto) 0.34 K/uL (1.2-3.4); Lymphocytes % (auto) 2.8 %; Mean Corpuscular Hgb Conc 32.7 g/dL (32-36); Mean Corpuscular Volume 85.8 fL (80-100); Mean Platelet Volume 10.7 fL (7.4-10.4); Monocytes # (auto) 0.57 K/uL (0.11-0.59); Monocytes % (auto) 4.7 %; Neutrophils % (auto) 92.1 %; Platelet Count 191 K/uL (130-400); RDW Standard Deviation 46.4 fL (36.4-46.3); Red Blood Count 4.24 M/uL (4.7-6.1); White Blood Count 12.06 K/uL (4.8-10.8)
--- NOTE | 2019-05-03 19:29 | XRay Report ---
XR chest 1V portable CLINICAL HISTORY: weakness COMPARISON STUDY: 01/22/2019 FINDINGS: The heart is enlarged. There is improving interstitial edema. Underlying interstitial lung disease may be present. There is no acute parenchymal consolidation. There are no significant pleural effusions[ IMPRESSION: Mild cardiomegaly. Improving interstitial edema. Suspected underlying interstitial lung d isease. Electronically signed by: Otto Galeano M.D. 05/03/2019 7:28 PM
[2019-05-03 19:46] LABS: Albumin Level 3.6 gm/dl (3.4-5.0); BUN Creatinine Ratio 14.1 (10-20); Blood Urea Nitrogen 13 mg/dl (7-18); Calcium 9.2 mg/dl (8.5-10.1); Carbon Dioxide 24 mmol/L (21-32); Chloride 107 mmol/L (98-107); Est GFR (African American) 104.7; Est GFR (Non-African American) 90.4; Glucose 198 mg/dl (70-99); Magnesium 1.7 mg/dl (1.8-2.4); Sodium 140 mmol/L (136-145)
[2019-05-03 19:57] LABS: Alanine Aminotransferase 16 U/L (12-78); Albumin Globulin Ratio 0.9 (0.9-2); Alkaline Phosphatase 102 U/L (45-117); Aspartate Aminotransferase 12 U/L (15-37); Bilirubin,Total 0.9 mg/dl (0.2-1); Globulin 3.8 gm/dl (2.5-4.0); Total Protein 7.4 gm/dl (6.4-8.2); Troponin I < 0.015 ng/ml (0-0.045)
--- NOTE | 2019-05-03 20:30 | CT Scan Report ---
CT head/brain wo con CLINICAL HISTORY: Acute change in mental status COMPARISON STUDY: December 2018 TECHNIQUE: Axial CT of the brain is performed from the vertex to the skull base. IV contrast was not administered for this examination. A dose lowering technique was utilized adhering to the principles of ALARA. CT DOSE: 537.48 mGy.cm FINDINGS: No intra or extra-axial mass lesions are visualized. There is no CT evidence of acute cortical infarc tion. There is no evidence of midline shift. There is no acute hemorrhage. No calvarial fractures ar e visualized. There are patchy white matter hypodensities likely on a small vessel basis. There is a left frontal i nfarct which has evolved since the preceding study. There is no evidence of pathologic ventricular dilatation. There is no evidence of acute sinusitis IMPRESSION: 1. 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 2. No acute intracranial findings Electronically signed by: Otto Galeano M.D. 05/03/2019 8:28 PM
[2019-05-03] MEDS ORDERED: SODIUM CHLORIDE 0.9% 1000ML 500 ML IV ONE (20:37)
[2019-05-03] MEDS ORDERED: cefTRIAXone SODIUM 1,000 MG/50 ML BAG IV STA (21:18)
--- NOTE | 2019-05-03 23:54 | History & Physical Report ---
Date of Service May 03, 2019 Assessment & Plan (1) Fatigue: 63-year-old male was admitted on 03 May 2019 for acute fatigue and atrial fibrillation with RVR. Fatigue, atrial fibrillation with RVR: Symptoms began this morning after an "explosive" bowel movement. Known history of A. fib and has been on his metoprolol + Eliquis regularly. No noted chest pain or shortness of breath. - In ED, T-max 38.5, tachycardic, briefly hypotensive, with normal room SpO2. Hb 11.9. EKG was afib with rate 147. Troponin negative. TSH borderline low 0.35. CT of the head notes prior left frontal lobe infarct without acute intracranial findings. pCXR notes interstitial edema and suspected interstitial lung disease. Blood culture sent. - In ED, placed on a Cardizem drip. Given Tylenol and normal saline IVF. Patient says he feels much improved and his says that his "color is better". Rates now in the low 100's with good BP. - Goal is to get him off of the Cardizem drip. We will give an extra dose of metoprolol 50 mg p.o. x1 this evening. Right foot non-healing ulcer, ? osteomyelitis: PMH same with ongoing home wound care management. Non-tender. No surrounding erythema or edema. Questionable if this is acutely infected. - In ED, treated with single dose of ceftriaxone. - For now we will not continue any antibiotics for coverage of this ulcer. Monitor. Fever, single loose stool: Unclear if patient's fever is a result of some level of colitis. WBC 12, normal lactate. Nontender abdomen. C diff testing was ordered by ED. BCx sent. - Plan to monitor for further loose stools and/or any abdominal pain or TTP. Consider CT a/p if these things develop. - UA and UCx are still pending. Hypomagnesemia: Admit Mg 1.7. Will replace and recheck in a.m. Ongoing medical issues: - Hypertension, hyperlipidemia, CAD s/p stenting: On metoprolol and atorvastatin. Plavix and aspirin are on hold due to prior GI bleed. Per , restart is dependent upon Dr. Mattson (cardiology) recommendations. - Diastolic congestive heart failure: Reported EF is 55%. - DM2, peripheral neuropathy: At home is on metformin. --- Will keep on insulin sliding scale here. - Hemorrhagic left MCA CVA: In March 2019 with expressive aphasia, since greatly improved. On PT, OT, and speech therapy at home. Has some resultant cognition issues. Continue home donepezil. - Severe oropharyngeal dysphasia: S/p CVA. Temporarily on PEG tube, removed March 2019. - Chronic iron deficiency anemia: Admit Hb 11.9, similar to previous 11 range. Continue home iron. - GERD, gastric ulcer: On home pantoprazole. - History of hepatic abscess: Treated with IV antibiotics in March 2019. No noted need for follow-up per . - Question of emphysema: As mentioned in last PCP note. Patient/ says no known pulmonary disease. - Depression/anxiety. - Macular degeneration, right ankle contracture. Code status: Full code. Diet: Heart healthy, diabetic diet. Aspiration precautions. DVT prophy: Eliquis. PT/OT: Deferred. Disbo: Admit to PCU. (2) Atrial fibrillation with RVR: (3) Right foot ulcer: (4) Fever: (5) Loose stools: (6) Hypomagnesemia: (7) Hypertension: (8) Hypercholesterolemia: (9) CAD (coronary artery disease): (10) Diastolic congestive heart failure: (11) Diabetes mellitus type 2, controlled: (12) Diabetic peripheral neuropathy associated with type 2 diabetes mellitus: (13) Hemorrhagic cerebrovascular accident (CVA): (14) Oropharyngeal dysphagia: (15) Chronic iron deficiency anemia: (16) GERD (gastroesophageal reflux disease): (17) Gastric ulcer: (18) Hepatic abscess: (19) Depression: (20) Anxiety: (21) Macular degeneration: (22) Contracture, right ankle: History of Present Illness Primary Care Provider: Lauren Raymond MD 63-year-old male presents to the emergency department with his . The great majority of the history is per the patient's . The patient himself is awake, alert to name + date of + "hospital" in [place], but states that the date is January 1942. At this point he became a little frustrated and some of his expressive aphasia developed. Per the patient's , patient was generally asymptomatic this morning. He had what she describes as a "large explosive bowel movement". Sometime after this patient was noted to have increased fatigue, feel cold, increased confusion, and generalized weakness. Apparently he was still able to partially participate in home health and physical therapy appointments. However, one of his visiting caregivers noted his heart rate was around 125 and recommended ED evaluation. Outside of the single loose stool this morning, there were no reports of any recent fevers, illness, pain anywhere, vomiting, difficulty breathing, chest pain, headache, acute rashes, or other acute concerns. He does have a known right lateral midfoot ulcer that is been present for over a year. Apparently it had healed for a brief time but then became more exacerbated during his December 2018 hospitalization from his hemorrhagic CVA. He has home wound care ongoing and most recently they recommended Xeroform dressings. Patient specifically says that this area is not painful and his mentions during previous infections it was quite painful. - Past medical history includes hypertension, hyperlipidemia, CAD, atrial fibrillation, diastolic congestive heart failure, diabetes type 2, peripheral neuropathy, hemorrhagic left MCA CVA, severe oropharyngeal dysphasia, chronic iron deficiency anemia, GERD, gastric ulcer, hepatic abscess, question of emphysema, depression, anxiety, macular degeneration, right ankle contracture. - Past surgical history includes partial amputation of the angioplasty and stenting to the RCA in 2001, gastric bypass surgery 2006, cataract surgery, left foot wound debridement for osteomyelitis, wedge resection of the MTP joints of the left foot, left knee arthroscopy, PEG tube placement January 2019. - Social history includes smoking a pack per day for 32 years but stopped in 2001. Denies alcohol use. Retired, , lives at home. Allergies Allergy/AdvReac Type Severity Reaction Status Date / Time No Known Allergies Allergy Verified 05/03/19 20:32 Home Medications Home Medications Medication Instructions Recorded Confirmed Type multivitamin tablet 1 tab PO QAM 06/29/18 05/03/19 History apixaban 5 mg tablet 5 mg PO BID 04/13/19 05/03/19 History donepezil 10 mg tablet 10 mg PO HS tab 04/13/19 05/03/19 History ferrous sulfate 325 mg (65 mg 325 mg PO DAILY tab 04/13/19 05/03/19 History iron) tablet,delayed release metoprolol tartrate 50 mg tablet 50 mg PO BID tab 04/13/19 05/03/19 History vit C 250 mg-E 200 unit-zinc 40 1 tab PO BID 04/13/19 05/03/19 History mg-copper 1 [id number] capsule atorvastatin 40 mg tablet 40 mg PO QPM 04/26/19 05/03/19 History metformin 1,000 mg tablet 1,000 mg PO BID #180 tab 04/26/19 05/03/19 Rx pantoprazole 40 mg tablet,delayed 40 mg PO DAILY tab 04/26/19 05/03/19 History release Past Med/Surg History Medical History Stomach ulcer Hemorrhagic cerebrovascular accident (CVA) (Chronic) Atrial fibrillation (Acute) CAD (coronary artery disease) (Acute) Chronic pain (Chronic) Depression with anxiety (Chronic) Hypertension (Acute) Diabetes mellitus type 2, controlled (Chronic) Diabetic peripheral neuropathy associated with type 2 diabetes mellitus (Acute) Hypercholesterolemia (Acute) Balance disorder (Chronic) Diabetic peripheral neuropathy associated with type 2 diabetes mellitus Foot deformity Foot drop History of diabetic ulcer of foot Balance disorder (Chronic) CHF (congestive heart failure) (Chronic) Cellulitis of right lower extremity (Chronic) Diabetic peripheral neuropathy (Chronic) Foot deformity (Chronic) Foot drop (Chronic) H/O diabetic foot ulcer (Chronic) Loss of sensation (Chronic) Osteomyelitis (Chronic) Pre-ulcerative corn or callous (Chronic) Status post partial amputation of foot (Chronic) Anemia Atrial fibrillation on pradaxa--follows with Dr. Mattson Diabetes mellitus, type 2 Hyperlipidemia Hypertension Macular degeneration Myocardial Infarction 2001 Osteoarthritis Surgical History History of arthroscopy of left knee History of bilateral cataract extraction History of cardiac cath 2001 History of colonoscopy History of gastric bypass History of hand surgery on middle finger/pinky right hand History of heart artery stent 2001 @ [facility]--2 LAD stents History of tonsillectomy History of tooth extraction wisdom teeth/all upper teeth Status post right foot surgery Family History Mother Family history of diabetes mellitus Brother Family history of diabetes mellitus Father Family history of diabetes mellitus Grandmother (Maternal) Family history of diabetes mellitus Social History Preferred Language: Italian Communication Ability: Impaired Communication Ability Comment: Patient with expressive aphasia Magnetic Resonance Imaging Director Required: No Beliefs That Will Affect Care: None Current Living Situation: Spouse Feels Safe at Home: Yes Safety Concerns: Feels Safe At This Time Smoking Status: Unknown if ever smoked Review of Systems Review of Systems: Unable to obtain full ROS due to patient's mild confusion. Limited ROS as noted in HPI. Physical Exam Physical Exam: GENERAL: Awake, alert, appears mildly chronically ill but at present is baseline conversational and does not appear in acute distress. HENT: Normocephalic, atraumatic. Oropharynx unremarkable. EYES: Normal conjunctiva. Sclera non-icteric. NECK: Inspection normal. Non-tender. Supple and full ROM. CARDIAC: +S1S2 irregularly irregular and borderline tachycardic, no murmurs. RESPIRATORY: Clear to auscultation. No wheezes or rales. Normal respiratory effort. GI: +BS, soft, non-distended. No tenderness to palpation. No rebound or guarding. EXTREMITIES: No pedal edema or calf tenderness. Moving all extremities na turally and easily. There is an approximately 2 cm circular ulceration on the right lateral midfoot. There is no surrounding erythema, edema, and the entire area is non-tender. NEURO: Has some expressive aphasia on stressing. Results & Data Vital Signs (Past 12 Hours) Vital Signs Temp Pulse Pulse Resp BP BP Pulse Ox 05/03/19 23:20 89 16 99/56 L 96 05/03/19 22:34 99 H 16 90/45 L 05/03/19 22:15 99 H 16 94/45 L 96 05/03/19 21:54 105 H 16 92/54 L 96 05/03/19 21:00 110 H 16 98/52 L 96 05/03/19 20:30 115 H 16 102/66 96 05/03/19 20:04 38.7 C H 120 H 16 117/66 96 05/03/19 19:54 138 H 16 126/71 95 05/03/19 19:48 126 H 18 120/74 95 05/03/19 19:01 94 05/03/19 18:43 141 H 20 94 05/03/19 18:31 38.5 C H 151 H 20 138/81 95 Laboratory Results 05/03/19 05/03/19 05/03/19 Range/Units 19:15 19:11 19:07 WBC 12.06 H (4.8-10.8) K/uL RBC 4.24 L (4.7-6.1) M/uL Hgb 11.9 L (14.0-18.0) g/dL Hct 36.4 L (42-52) % MCV 85.8 (80-100) fL MCH 28.1 (25-34) pg MCHC 32.7 (32-36) g/dL RDW Std Deviation 46.4 H (36.4-46.3) fL RDW Coeff of Clay 15.0 H (11.5-14.5) % Plt Count 191 (130-400) K/uL MPV 10.7 H (7.4-10.4) fL Immature Gran % (Auto) 0.3 % Neut % (Auto) 92.1 % Lymph % (Auto) 2.8 % [place] % (Auto) 4.7 % Eos % (Auto) 0.0 % Baso % (Auto) 0.1 % Immature Gran # (Auto) 0.04 H (0.00-0.02) K/uL Neut # (Auto) 11.10 H (1.4-6.5) K/uL Lymph # (Auto) 0.34 L (1.2-3.4) K/uL [place] # (Auto) 0.57 (0.11-0.59) K/uL Eos # (Auto) 0.00 (0-0.5) K/uL Baso # (Auto) 0.01 (0-0.2) K/uL Sodium (136-145) mmol/L Potassium (3.5-5.1) mmol/L Chloride (98-107) mmol/L Carbon Dioxide (21-32) mmol/L Anion Gap (3-11) BUN (7-18) mg/dl Creatinine (0.6-1.4) mg/dl Est Cr Clr Drug Dosing Est GFR ( Amer) Est GFR (Non-Af Amer) BUN/Creatinine Ratio (10-20) Glucose (70-99) mg/dl POC Lactic Acid Damian 1.19 (0.90-1.70) mmol/L Calcium (8.5-10.1) mg/dl Magnesium (1.8-2.4) mg/dl Total Bilirubin (0.2-1) mg/dl AST (15-37) U/L ALT (12-78) U/L Alkaline Phosphatase (45-117) U/L Troponin I (0-0.045) ng/ml Total Protein (6.4-8.2) gm/dl Albumin (3.4-5.0) gm/dl Globulin (2.5-4.0) gm/dl Albumin/Globulin Ratio (0.9-2) TSH (0.300-4.500) uIu/ml Blood Type A Positive Antibody Screen NEGATIVE 05/03/19 Range/Units 19:07 WBC (4.8-10.8) K/uL RBC (4.7-6.1) M/uL Hgb (14.0-18.0) g/dL Hct (42-52) % MCV (80-100) fL MCH (25-34) pg MCHC (32-36) g/dL RDW Std Deviation (36.4-46.3) fL RDW Coeff of Clay (11.5-14.5) % Plt Count (130-400) K/uL MPV (7.4-10.4) fL Immature Gran % (Auto) % Neut % (Auto) % Lymph % (Auto) % [place] % (Auto) % Eos % (Auto) % Baso % (Auto) % Immature Gran # (Auto) (0.00-0.02) K/uL Neut # (Auto) (1.4-6.5) K/uL Lymph # (Auto) (1.2-3.4) K/uL [place] # (Auto) (0.11-0.59) K/uL Eos # (Auto) (0-0.5) K/uL Baso # (Auto) (0-0.2) K/uL Sodium 140 (136-145) mmol/L Potassium 4.0 (3.5-5.1) mmol/L Chloride 107 (98-107) mmol/L Carbon Dioxide 24 (21-32) mmol/L Anion Gap 9.0 (3-11) BUN 13 (7-18) mg/dl Creatinine 0.89 (0.6-1.4) mg/dl Est Cr Clr Drug Dosing Not Reportable Est GFR ( Amer) 104.7 Est GFR (Non-Af Amer) 90.4 BUN/Creatinine Ratio 14.1 (10-20) Glucose 198 H (70-99) mg/dl POC Lactic Acid Damian (0.90-1.70) mmol/L Calcium 9.2 (8.5-10.1) mg/dl Magnesium 1.7 L (1.8-2.4) mg/dl Total Bilirubin 0.9 (0.2-1) mg/dl AST 12 L (15-37) U/L ALT 16 (12-78) U/L Alkaline Phosphatase 102 (45-117) U/L Troponin I < 0.015 (0-0.045) ng/ml Total Protein 7.4 (6.4-8.2) gm/dl Albumin 3.6 (3.4-5.0) gm/dl Globulin 3.8 (2.5-4.0) gm/dl Albumin/Globulin Ratio 0.9 (0.9-2) TSH 0.350 (0.300-4.500) uIu/ml Blood Type Antibody Screen Medications Administered Sodium Chloride (Nss 1000ml) 1,000 mls @ 125 mls/hr IV .Q8H [facility] Stop: 05/04/19 02:59 Last Admin: 05/03/19 20:00 Dose: 125 mls/hr Documented by: [id number] Diltiazem HCl 125 mg/ Dextrose 125 mls @ 0 mls/hr IV .Q0M [facility]; Protocol Stop: 06/02/19 19:14 Last Admin: 05/03/19 19:18 Dose: 125 mg/hr, 125 mls/hr Documented by: [id number] Cosigned by: [id number] Discontinued Medications Acetaminophen (Tylenol) 1,000 mg PO NOW STA Stop: 05/03/19 18:58 Last Admin: 05/03/19 19:10 Dose: 1,000 mg Documented by: [id number] Diltiazem HCl (Cardizem) 10 mg IV NOW STA Stop: 05/03/19 19:02 Last Admin: 05/03/19 19:17 Dose: 10 mg Documented by: [id number] Cosigned by: [id number] Sodium Chloride (Nss 1000ml) 500 mls @ 999 mls/hr IV .Q31M ONE Stop: 05/03/19 21:07 Last Infusion: 05/03/19 21:58 Dose: 0 mls/hr Documented by: [id number] Infusion: 05/03/19 21:58 Dose: 0 mls/hr Documented by: [id number] Admin: 05/03/19 20:55 Dose: 999 mls/hr Documented by: [id number] Ceftriaxone Sodium (Rocephin) 1,000 mg in 50 mls @ 100 mls/hr IV NOW STA Stop: 05/03/19 21:47 Last Infusion: 05/03/19 22:38 Dose: 0 mls/hr Documented by: [id number] Admin: 05/03/19 21:32 Dose: 100 mls/hr Documented by: [id number] Code Status & VTE Plan Code Status Full code VTE Prophylaxis Plan VTE Prophylaxis will be ordered: Yes Supervising Physician Co-Signing Physician Notes Patient seen and examined, chart reviewed, case discussed with Dr. Reza and I agree with the assessment and plan as above. Briefly, patient is a 63yo C male presenting with AF wtih RVR which began after having a large, explosive BM. Patient with known history of AF on Eliquis anticoagulation. +Fatigue, fever, confusion and weakness On exam his is afebrile, tachycardic, irregularly irregular, BP stable, no respiratory distress HEENT: NC/AT, PERRL, MMM, neck supple Heart: +S1/S2, irregularly irregular Lungs: CTA Abd: +BS, soft, NT/ND Ext: wound on right falcon Labs and images reviewed Assessment/Plan: -Admit to medical floor, telemetry monitoring -Cardizem gtt continue for now, wean as tolerated -Increase Metoprolol -Closely monitor for cellulitis, ongoing infection. Will hold additional antibiotics for now -Remainder of plan as above PG Care Time/CCT Total # of Minutes Spent Total Time Spent with Patient: Total time spent is greater than 50% in coordination of care (as documented) at patient's floor/unit and/or counseling patient: Resident Activity Tracking Resident Involvement: Resident Care Provided Care Provided: Adult Hospital Medicine (1) Fever Fever type: unspecified Qualified Code(s): R50.9 - Fever, unspecified
[2019-05-04] MEDS: dilTIAZem HCl 125 MG in DEXTROSE 5% 100 ML IV SCH (00:45)
[2019-05-04] MEDS ORDERED: GLUCOSE 10 TABS/TUBE PO PRN (00:53)
[2019-05-04] MEDS ORDERED: MAGNESIUM SULFATE / D5W 1 GM/100 ML BAG IV ONE (00:53)
[2019-05-04] MEDS ORDERED: DEXTROSE 50% 50 ML SYRINGE IV PRN (00:53)
[2019-05-04] MEDS ORDERED: METOPROLOL TARTRATE 50 MG TAB PO ONE (00:53)
[2019-05-04] MEDS ORDERED: GLUCOSE 40% GEL 15 GM TUBE PO PRN (00:53)
[2019-05-04] MEDS ORDERED: GLUCAGON FOR INJ 1 MG VIAL SQ PRN (00:53)
[2019-05-04] MEDS ORDERED: CARBOHYDRATES FOR HYPOGLYCEMIA PO PRN (00:53)
--- NOTE | 2019-05-04 03:39 | Emergency Department Note ---
Entered by Weston Jaffe acting as a scribe for Juliano Nagy MD ED Provider Note CHIEF COMPLAINT: Lethargy HISTORY OF PRESENT ILLNESS: The patient is a 63 year old male who presents to the Emergency Room complaining of a constant feeling of lethargy that was first noticed today, per the . She states that the patient was recently hospitalized in [place] for a stroke, but since his discharge he had been improving. However she notes that today he was not moving around as much, not talking, eating, drinking or taking his medications. Per the , the patient was not complaining of any pain or fevers, but upon arrival to the ED, the patient's temperature was 101.3F. While the patient was in [place], he did not have any procedures or interventions done because of his history of Afib. Per the , the patient did take all of his morning medications today. He is on Eliquis. Pt denies LOC, headache, chills, visual changes, neck pain, chest pain, breathing difficulties, nausea, vomiting, abdominal pain, back pain, melena, hematochezia, urinary symptoms, numbness, weakness, lymphadenopathy, rash, or other complaints. REVIEW OF SYSTEMS: See HPI for pertinent positives and negatives. A total of ten systems were reviewed and were otherwise negative. PMHx/PSHx: Anemia, Afib, CAD, DM, CHF, CVA, GERD, HLD SOCIAL HISTORY: Patient lives at home. PHYSICAL EXAM: GENERAL: Awake, alert, mildly ill-appearing, in no distress HENT: Normocephalic, atraumatic. Oropharynx unremarkable. EYES: Normal conjunctiva. Sclera non-icteric. NECK: Inspection normal. Non-tender. Supple. No nuchal rigidity. FROM. No masses. RESPIRATORY: Clear to auscultation. No wheezes. No rales. Normal respiratory effort. CARDIAC: Tachycardic rate. Irregular rhythm. No murmurs. No rubs. Extremities warm and well perfused. Pulses equal. No JVD. GI: Soft, non-distended. No tenderness to palpation. No rebound or guarding. No masses. RECTAL: Deferred. MUSCULOSKELETAL: Atraumatic. Chest examination reveals no tenderness. The back is symmetrical on inspection without obvious abnormality. There is no CVA tenderness to palpation. No joint edema. LOWER EXTREMITIES: Calves are equal size bilaterally and non-tender. No edema. Chronic venous discoloration. NEURO: Normal sensorium. No sensory or motor deficits noted. SKIN: No rash or jaundice noted. EMERGENCY DEPARTMENT COURSE: 1855: The patient was evaluated in room A10, and a complete history and physical examination were performed. 1942: I reevaluated the patient and his heart rate is improving. I also updated him on all results obtained thus far. 2114: I reevaluated the patient and he is stable. We also discussed the treatment plan and he is in agreement with the plan. 2141: I spoke to Dr. Amaya - [facility] Hospitalist about the patient's case and she is going to accept him for further evaluation. MEDICAL DECISION MAKING: Prior records/ancillary studies reviewed and summarized above. Nursing notes reviewed and agree them. Additional history obtained from family. The patient's history was concerning for altered mental status. Differential diagnosis: Etiologies such as infection, hypoglycemia, electrolyte abnormalities, cardiac sources, intracerebral event, toxicologic, neurologic, as well as others were entertained. Physical examination: As above. Nonfocal. Rapid A. fib noted. Fever noted. Patient has some mild redness of the right foot. Ulcer noted. ER treatment provided: IV Lock Normal saline hydration IV Cardizem bolus and drip Oral Tylenol on reassessment the patient felt better. IV Rocephin Diagnostics interpretation by me: ECG: Consistent with rapid atrial fibrillation. No ischemia. The labs revealed mild leukocytosis on CBC. Chemistry unremarkable. Blood cultures pending. Lactate normal. The patient's urinalysis is pending. Imaging studies: CT scan and chest x-ray performed. No acute findings. Consultation: A consultation was placed with the hospitalist. The case was discussed and diagnostics were reviewed. The patient was evaluated in the ER for further treatment. IMPRESSION: Atrial Fibrillation with RVR, Fever, Leukocytosis PLAN: Admitted as inpatient The scribe's documentation has been prepared under my direction and personally reviewed by me in its entirety. I confirm that the note above accurately reflects all work, treatment, procedures, and medical decision making performed by me. CRITICAL CARE: I have personally spent greater than 30 minutes of critical care time in the direct management of this patient. This includes bedside care, interpretation of diagnostic studies, and testing, discussion with consultants, patient, and family members, and other required patient management activities. This 30 minutes is in excess of all separately billable procedures. Impression & Plan Atrial fibrillation with RVR, Fever, Leukocytosis Past Med/Surg History Medical History Stomach ulcer Hemorrhagic cerebrovascular accident (CVA) (Chronic) Atrial fibrillation (Acute) CAD (coronary artery disease) (Acute) Chronic pain (Chronic) Depression with anxiety (Chronic) Hypertension (Acute) Diabetes mellitus type 2, controlled (Chronic) Diabetic peripheral neuropathy associated with type 2 diabetes mellitus (Acute) Hypercholesterolemia (Acute) Balance disorder (Chronic) Diabetic peripheral neuropathy associated with type 2 diabetes mellitus Foot deformity Foot drop History of diabetic ulcer of foot Balance disorder (Chronic) CHF (congestive heart failure) (Chronic) Cellulitis of right lower extremity (Chronic) Diabetic peripheral neuropathy (Chronic) Foot deformity (Chronic) Foot drop (Chronic) H/O diabetic foot ulcer (Chronic) Loss of sensation (Chronic) Osteomyelitis (Chronic) Pre-ulcerative corn or callous (Chronic) Status post partial amputation of foot (Chronic) Anemia Atrial fibrillation on pradaxa--follows with Dr. Mattson Diabetes mellitus, type 2 Hyperlipidemia Hypertension Macular degeneration Myocardial Infarction 2001 Osteoarthritis Surgical History History of arthroscopy of left knee History of bilateral cataract extraction History of cardiac cath 2001 History of colonoscopy History of gastric bypass History of hand surgery on middle finger/pinky right hand History of heart artery stent 2001 @ [facility]--2 LAD stents History of tonsillectomy History of tooth extraction wisdom teeth/all upper teeth Status post right foot surgery Family History Mother Family history of diabetes mellitus Brother Family history of diabetes mellitus Father Family history of diabetes mellitus Grandmother (Maternal) Family history of diabetes mellitus Social History Preferred Language: Martiniquais Communication Ability: Impaired Communication Ability Comment: Patient with expressive aphasia Assistant Dean Required: No Beliefs That Will Affect Care: None Current Living Situation: Spouse Feels Safe at Home: Yes Safety Concerns: Feels Safe At This Time Smoking Status: Unknown if ever smoked Results & Data Vital Signs Vital Signs - 24 hr 05/03/19 18:31 05/03/19 18:43 05/03/19 18:59 Temperature 38.5 C H Temperature Source Oral Sepsis Recent Fever Within 48 Hours Yes Sepsis New/Unexplained Change in Mental Status Yes Sepsis Action Taken by Nursing Physician Notified Pulse Rate 151 H 141 H Pulse Rate [Right Finger] Pulse Rhythm [Right Finger] Pulse Strength [Right Finger] Respiratory Rate 20 20 Respiratory Effort / Characteristics Respiratory Depth Respiratory Pattern Blood Pressure 138/81 Blood Pressure [Right Arm] Blood Pressure Mean 100 Blood Pressure Mean [Right Arm] Blood Pressure Position Sitting Blood Pressure Position [Right Arm] Pulse Oximetry 95 94 Oxygen Delivery Method Room Air Room Air Room Air 05/03/19 19:01 05/03/19 19:48 05/03/19 19:54 Temperature Temperature Source Sepsis Recent Fever Within 48 Hours Sepsis New/Unexplained Change in Mental Status Sepsis Action Taken by Nursing Pulse Rate Pulse Rate [Right Finger] 126 H 138 H Pulse Rhythm [Right Finger] Regular Regular Pulse Strength [Right Finger] Normal Normal Respiratory Rate 18 16 Respiratory Effort / Characteristics Non-Labored Non-Labored Respiratory Depth Normal Normal Respiratory Pattern Regular Regular Blood Pressure Blood Pressure [Right Arm] 120/74 126/71 Blood Pressure Mean Blood Pressure Mean [Right Arm] 89 89 Blood Pressure Position Blood Pressure Position [Right Arm] Lying Lying Pulse Oximetry 94 95 95 Oxygen Delivery Method Room Air Room Air Room Air 05/03/19 20:04 05/03/19 20:30 05/03/19 21:00 Temperature 38.7 C H Temperature Source Oral Sepsis Recent Fever Within 48 Hours Sepsis New/Unexplained Change in Mental Status Sepsis Action Taken by Nursing Pulse Rate Pulse Rate [Right Finger] 120 H 115 H 110 H Pulse Rhythm [Right Finger] Irregular Pulse Strength [Right Finger] Normal Respiratory Rate 16 16 16 Respiratory Effort / Characteristics Non-Labored Non-Labored Non-Labored Respiratory Depth Normal Normal Normal Respiratory Pattern Regular Regular Regular Blood Pressure Blood Pressure [Right Arm] 117/66 102/66 98/52 L Blood Pressure Mean Blood Pressure Mean [Right Arm] 83 78 67 Blood Pressure Position Blood Pressure Position [Right Arm] Lying Lying Pulse Oximetry 96 96 96 Oxygen Delivery Method Room Air Room Air Room Air 05/03/19 21:54 05/03/19 22:15 05/03/19 22:34 Temperature 37.5 C Temperature Source Oral Sepsis Recent Fever Within 48 Hours Sepsis New/Unexplained Change in Mental Status Sepsis Action Taken by Nursing Pulse Rate Pulse Rate [Right Finger] 105 H 99 H 99 H Pulse Rhythm [Right Finger] Irregular Irregular Pulse Strength [Right Finger] Respiratory Rate 16 16 16 Respiratory Effort / Characteristics Non-Labored Non-Labored Respiratory Depth Normal Normal Respiratory Pattern Regular Regular Blood Pressure Blood Pressure [Right Arm] 92/54 L 94/45 L 90/45 L Blood Pressure Mean Blood Pressure Mean [Right Arm] 66 61 60 Blood Pressure Position Blood Pressure Position [Right Arm] Lying Lying Pulse Oximetry 96 96 Oxygen Delivery Method Room Air Room Air 05/03/19 23:20 Temperature Temperature Source Sepsis Recent Fever Within 48 Hours Sepsis New/Unexplained Change in Mental Status Sepsis Action Taken by Nursing Pulse Rate Pulse Rate [Right Finger] 89 Pulse Rhythm [Right Finger] Irregular Pulse Strength [Right Finger] Normal Respiratory Rate 16 Respiratory Effort / Characteristics Non-Labored Respiratory Depth Normal Respiratory Pattern Regular Blood Pressure Blood Pressure [Right Arm] 99/56 L Blood Pressure Mean Blood Pressure Mean [Right Arm] 70 Blood Pressure Position Blood Pressure Position [Right Arm] Lying Pulse Oximetry 96 Oxygen Delivery Method Room Air Home Medications Current Medication List: was personally reviewed by me Laboratory Data Attestation: I reviewed the patient's lab results. Result diagrams: 05/03/19 19:07 05/03/19 19:07 Lab Results 05/03/19 05/03/19 05/03/19 Range/Units 19:07 19:07 19:11 WBC 12.06 H (4.8-10.8) K/uL RBC 4.24 L (4.7-6.1) M/uL Hgb 11.9 L (14.0-18.0) g/dL Hct 36.4 L (42-52) % MCV 85.8 (80-100) fL MCH 28.1 (25-34) pg MCHC 32.7 (32-36) g/dL RDW Std Deviation 46.4 H (36.4-46.3) fL RDW Coeff of Clay 15.0 H (11.5-14.5) % Plt Count 191 (130-400) K/uL MPV 10.7 H (7.4-10.4) fL Immature Gran % (Auto) 0.3 % Neut % (Auto) 92.1 % Lymph % (Auto) 2.8 % Berks % (Auto) 4.7 % Eos % (Auto) 0.0 % Baso % (Auto) 0.1 % Immature Gran # (Auto) 0.04 H (0.00-0.02) K/uL Neut # (Auto) 11.10 H (1.4-6.5) K/uL Lymph # (Auto) 0.34 L (1.2-3.4) K/uL Berks # (Auto) 0.57 (0.11-0.59) K/uL Eos # (Auto) 0.00 (0-0.5) K/uL Baso # (Auto) 0.01 (0-0.2) K/uL Sodium 140 (136-145) mmol/L Potassium 4.0 (3.5-5.1) mmol/L Chloride 107 (98-107) mmol/L Carbon Dioxide 24 (21-32) mmol/L Anion Gap 9.0 (3-11) BUN 13 (7-18) mg/dl Creatinine 0.89 (0.6-1.4) mg/dl Est Cr Clr Drug Dosing Not Reportable Est GFR ( Amer) 104.7 Est GFR (Non-Af Amer) 90.4 BUN/Creatinine Ratio 14.1 (10-20) Glucose 198 H (70-99) mg/dl POC Lactic Acid Damian (0.90-1.70) mmol/L Calcium 9.2 (8.5-10.1) mg/dl Magnesium 1.7 L (1.8-2.4) mg/dl Total Bilirubin 0.9 (0.2-1) mg/dl AST 12 L (15-37) U/L ALT 16 (12-78) U/L Alkaline Phosphatase 102 (45-117) U/L Troponin I < 0.015 (0-0.045) ng/ml Total Protein 7.4 (6.4-8.2) gm/dl Albumin 3.6 (3.4-5.0) gm/dl Globulin 3.8 (2.5-4.0) gm/dl Albumin/Globulin Ratio 0.9 (0.9-2) TSH 0.350 (0.300-4.500) uIu/ml Blood Type A Positive Antibody Screen NEGATIVE 05/03/19 Range/Units 19:15 WBC (4.8-10.8) K/uL RBC (4.7-6.1) M/uL Hgb (14.0-18.0) g/dL Hct (42-52) % MCV (80-100) fL MCH (25-34) pg MCHC (32-36) g/dL RDW Std Deviation (36.4-46.3) fL RDW Coeff of Clay (11.5-14.5) % Plt Count (130-400) K/uL MPV (7.4-10.4) fL Immature Gran % (Auto) % Neut % (Auto) % Lymph % (Auto) % Berks % (Auto) % Eos % (Auto) % Baso % (Auto) % Immature Gran # (Auto) (0.00-0.02) K/uL Neut # (Auto) (1.4-6.5) K/uL Lymph # (Auto) (1.2-3.4) K/uL Berks # (Auto) (0.11-0.59) K/uL Eos # (Auto) (0-0.5) K/uL Baso # (Auto) (0-0.2) K/uL Sodium (136-145) mmol/L Potassium (3.5-5.1) mmol/L Chloride (98-107) mmol/L Carbon Dioxide (21-32) mmol/L Anion Gap (3-11) BUN (7-18) mg/dl Creatinine (0.6-1.4) mg/dl Est Cr Clr Drug Dosing Est GFR ( Amer) Est GFR (Non-Af Amer) BUN/Creatinine Ratio (10-20) Glucose (70-99) mg/dl POC Lactic Acid Damian 1.19 (0.90-1.70) mmol/L Calcium (8.5-10.1) mg/dl Magnesium (1.8-2.4) mg/dl Total Bilirubin (0.2-1) mg/dl AST (15-37) U/L ALT (12-78) U/L Alkaline Phosphatase (45-117) U/L Troponin I (0-0.045) ng/ml Total Protein (6.4-8.2) gm/dl Albumin (3.4-5.0) gm/dl Globulin (2.5-4.0) gm/dl Albumin/Globulin Ratio (0.9-2) TSH (0.300-4.500) uIu/ml Blood Type Antibody Screen Administered Medications Diltiazem HCl 125 mg/ Dextrose 125 mls @ 10 mls/hr IV .[id number] [facility]; Protocol Stop: 06/02/19 19:14 Last Titration: 05/04/19 03:00 Dose: 5 mg/hr, 5 mls/hr Documented by: [id number] Titration: 05/04/19 02:35 Dose: 10 mg/hr, 10 mls/hr Documented by: [id number] Admin: 05/04/19 00:45 Dose: 5 mg/hr, 5 mls/hr Documented by: [id number] Cosigned by: [id number] Titration: 05/04/19 00:30 Dose: 0 mg/hr, 0 mls/hr Documented by: [id number] Admin: 05/03/19 19:18 Dose: 125 mg/hr, 125 mls/hr Documented by: [id number] Cosigned by: [id number] Discontinued Medications Acetaminophen (Tylenol) 1,000 mg PO NOW STA Stop: 05/03/19 18:58 Last Admin: 05/03/19 19:10 Dose: 1,000 mg Documented by: [id number] Diltiazem HCl (Cardizem) 10 mg IV NOW STA Stop: 05/03/19 19:02 Last Admin: 05/03/19 19:17 Dose: 10 mg Documented by: [id number] Cosigned by: [id number] Sodium Chloride (Nss 1000ml) 1,000 mls @ 125 mls/hr IV .Q8H FIDEL Stop: 05/04/19 02:59 Last Infusion: 05/04/19 01:30 Dose: 125 mls/hr Documented by: [id number] Admin: 05/03/19 20:00 Dose: 125 mls/hr Documented by: [id number] Sodium Chloride (Nss 1000ml) 500 mls @ 999 mls/hr IV .Q31M ONE Stop: 05/03/19 21:07 Last Infusion: 05/03/19 21:58 Dose: 0 mls/hr Documented by: [id number] Infusion: 05/03/19 21:58 Dose: 0 mls/hr Documented by: [id number] Admin: 05/03/19 20:55 Dose: 999 mls/hr Documented by: [id number] Ceftriaxone Sodium (Rocephin) 1,000 mg in 50 mls @ 100 mls/hr IV NOW STA Stop: 05/03/19 21:47 Last Infusion: 05/03/19 22:38 Dose: 0 mls/hr Documented by: [id number] Admin: 05/03/19 21:32 Dose: 100 mls/hr Documented by: [id number] Magnesium Sulfate/Dextrose (Magnesium Sulfate / D5w) 1 gm in 100 mls @ 100 mls/hr IV ONE ONE Stop: 05/04/19 01:52 Last Infusion: 05/04/19 02:31 Dose: 0 mls/hr Documented by: [id number] Admin: 05/04/19 01:25 Dose: 100 mls/hr Documented by: [id number] Metoprolol Tartrate (Lopressor) 50 mg PO ONE ONE Stop: 05/04/19 00:54 Last Admin: 05/04/19 01:31 Dose: 50 mg Documented by: [id number] Imaging Data Radiologist's Impression: Radiology results as stated below per my review and the radiologist's interpretation: XR chest 1V portable CLINICAL HISTORY: weakness COMPARISON STUDY: 01/22/2019 FINDINGS: The heart is enlarged. There is improving interstitial edema. Underlying interstitial lung disease may be present. There is no acute parench ymal consolidation. There are no significant pleural effusions[ IMPRESSION: Mild cardiomegaly. Improving interstitial edema. Suspected underlying interstitial lung disease. Electronically signed by: Otto Galeano M.D. 05/03/2019 7:[address] head/brain wo con CLINICAL HISTORY: Acute change in mental status COMPARISON STUDY: December 2018 TECHNIQUE: Axial CT of the brain is performed from the vertex to the skull base. IV contrast was not administered for this examination. A dose lowering technique was utilized adhering to the principles of ALARA. CT DOSE: 537.48 mGy.cm FINDINGS: No intra or extra-axial mass lesions are visualized. There is no CT evidence of acute cortical infarction. There is no evidence of midline shift. There is no acute hemorrhage. No calvarial fractures are visualized. There are patchy white matter hypodensities likely on a small vessel basis. There is a left frontal infarct which has evolved since the preceding study. There is no evidence of pathologic ventricular dilatation. There is no evidence of acute sinusitis IMPRESSION: 1. 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 2. No acute intracranial findings Electronically signed by: Otto Galeano M.D. 05/03/2019 8:28 PM ECG Data Attestation: I personally reviewed and interpreted this ECG as follows: Indication: weakness Rate (beats per minute): 147 Rhythm: atrial fibrillation (with RVR) Findings: + nonspecific-ST abn; no PAC, no PVC and no ST elevation Blood Pressure Blood Pressure Findings: Low blood pressure Blood Pressure Disposition: further management by hospitalist Discharge Plan Visit Data *Final* Discharge Date/Time: 05/04/19 00:28 Chief Complaint: Lethargic Stated Complaint: LETHARGIC, NOT TALKING, RAPID HEARTRATE ED Provider: Juliano Nagy Discharge Problem: Atrial fibrillation with RVR, Fever, Leukocytosis Patient Disposition: Admitted As Inpatient Discharge Instructions Interventions: ED Discharge Assessment Last Done: 05/04/19 00:28 Discharge Problem: Fever Qualifiers: Fever type: unspecified Qualified Code(s): R50.9 - Fever, unspecified Leukocytosis Qualifiers: Leukocytosis type: unspecified Qualified Code(s): D72.829 - Elevated white blood cell count, unspecified The scribe's documentation has been prepared under my direction and personally reviewed by me in its entirety. I confirm that the note above accurately reflects all work, treatment, procedures, and medical decision making performed by me.
[2019-05-04 04:23] LABS: Appearance Urine Cloudy (Clear); Bacteria Urine Automated Negative (Negative); Bilirubin Urine Negative (Negative); Blood Urine 3+ (Negative); Color Urine Yellow; Epithelial Cell Urine Auto 0-5 /lpf (0-5); Glucose Urine UA Negative (Negative); Ketones Urine Negative (Negative); Leukocyte Esterase Urine Negative (Negative); Nitrite Urine Negative (Negative); Protein Urine Negative (Negative); Urobilinogen Urine Negative (Negative)
[2019-05-04] MEDS ORDERED: ACETAMINOPHEN 325 MG TAB PO PRN (04:44)
[2019-05-04] MEDS ORDERED: ACETAMINOPHEN 325 MG TAB ONE (04:55)
[2019-05-04 06:11] LABS: Basophils # (auto) 0.02 K/uL (0-0.2); Basophils % (auto) 0.3 %; Hematocrit (blood only) 32.7 % (42-52); Hemoglobin 10.6 g/dL (14.0-18.0); Lymphocytes # (auto) 0.47 K/uL (1.2-3.4); Lymphocytes % (auto) 6.2 %; Mean Corpuscular Hgb Conc 32.4 g/dL (32-36); Mean Platelet Volume 10.9 fL (7.4-10.4); Monocytes # (auto) 0.43 K/uL (0.11-0.59); Monocytes % (auto) 5.7 %; Neutrophils # (auto) 6.62 K/uL (1.4-6.5); Neutrophils % (auto) 87.8 %; Platelet Count 160 K/uL (130-400); RDW Coefficient of Variation 15.1 % (11.5-14.5); RDW Standard Deviation 47.7 fL (36.4-46.3); Red Blood Count 3.76 M/uL (4.7-6.1); White Blood Count 7.54 K/uL (4.8-10.8)
[2019-05-04 06:48] LABS: Est GFR (African American) 122.3; Potassium 2.9 mmol/L (3.5-5.1)
[2019-05-04 06:49] LABS: BUN Creatinine Ratio 18.6 (10-20); Calcium 8.4 mg/dl (8.5-10.1); Creatinine Clr Calc Pharmacy 118.4 ml/min; Est GFR (Non-African American) 105.5; Magnesium 1.8 mg/dl (1.8-2.4)
[2019-05-04] MEDS: INSULIN ASPART 100 UNITS/ML 3 ML PEN SC SCH ×4 (07:51→20:54)
[2019-05-04] MEDS: PANTOprazole 40 MG TAB PO SCH (07:52)
[2019-05-04] MEDS: MULTIVITAMIN TAB PO SCH (07:52)
[2019-05-04] MEDS: APIXABAN 5 MG TABLET PO SCH ×2 (07:52→20:05)
[2019-05-04] MEDS: FERROUS SULFATE 325 MG TAB PO SCH (07:52)
[2019-05-04] MEDS: CEROVITE ADV FORMULA TAB PO SCH ×2 (07:52→20:06)
[2019-05-04] MEDS ORDERED: PNEUMOCOCCAL POLYSACCHARIDES 25 MCG/0.5 ML VIAL/SYR IM ONE (08:00)
[2019-05-04] MEDS ORDERED: PNEUMOCOCCAL ADMINISTRATION CHARGE ONE (08:00)
[2019-05-04] MEDS ORDERED: POTASSIUM CHLORIDE 20 MEQ TABCR PO STA (08:04)
[2019-05-04] MEDS: MAGNESIUM OXIDE 400 MG TAB PO SCH (08:50)
[2019-05-04] MEDS: METOPROLOL TARTRATE 50 MG TAB PO SCH ×2 (08:51→20:05)
[2019-05-04] MEDS ORDERED: LACTATED RINGER'S 1,000 ML IV SCH (11:15)
--- NOTE | 2019-05-04 14:07 | Family Medicine Progress Note ---
Date of Service May 04, 2019 Assessment & Plan (1) Atrial fibrillation with RVR: Leonard Garza is 63-year-old male with a past medical history of hypertension, hyperlipidemia, coronary artery disease as/P PCI, diastolic CHF with EF 55%, type 2 diabetes mellitus with peripheral neuropathy and chronic right foot ulcer, hemorrhagic left MCA CVA in 03/2019 with mild residual expressive aphasia, GERD, iron deficiency, hepatic abscess, and A. fib who presents with fatigue confusion and generalized weakness and who was found to be in A. fib with RVR. His hospital course has been complicated by intermittent fever of unknown origin. Atrial fibrillation with RVR Anticoagulated with Eliquis No chest pain, shortness of breath on admit Initially tachycardic to 138, responded well to Cardizem drip overnight. Pulse normal and Cardizem drip stopped this morning. Pending conversion to [employer] p.o. metoprolol, currently limited by systolic pressure of 90. Fever of unknown origin Has continued to be intermittently febrile overnight to 38.4 He has a history of chronic diabetic nonhealing right foot ulcer and osteomyelitis, however examination of the ulcer does not show any signs of cellulitis or deep infection and is not painful. Given his history of chronic osteomyelitis will obtain MRI right foot to evaluate for osteo. UA negative, chest x-ray with no acute findings of pneumonia 02/09/2019 he was treated for a 5.1 x 2.5 cm left subhepatic abscess with pockets of gas with negative culture and no organisms seen on Gram stain. Repeat CT scan 03/08/2019 showed resolution of the abscess and no evidence of residual infection or fluid. He shows no signs of abdominal tenderness or i nfection on clinical exam today. Blood cultures pending, negative to date Received empiric Vanco narrowed to ceftriaxone and stopped yesterday. If he continues to be febrile or has a leukocytosis would resume ceftriaxone Coronary artery disease as/P PCI Continue [employer] metoprolol 50 mg twice daily Continue atorvastatin 40 mg daily Plavix/aspirin on hold but may restart if advised by cardiology Left MCA CVA with hemorrhage 03/2019 Some residual expressive aphasia, otherwise minimal deficits Continue home donepezil Type 2 diabetes mellitus with neuropathy and diabetic foot ulcer Glucose checks AC/at bedtime Hold [employer] metformin Insulin SSI GERD Continue [employer] Protonix 40 mg daily Diarrhea Resolving/resolved. No indication for C. difficile testing given firm stools at this time DVT prophylaxis: Eliquis CODE STATUS: Full Disposition: Pending infectious work-up (2) Fever: (3) Leukocytosis: (4) Hemorrhagic cerebrovascular accident (CVA): Supervising Physician Co-Signing Physician Notes Resident Physician Supervision Note: I independently interviewed and examined the patient and verified the laird hist ory and physical, reviewed labs and image studies, discussed the case with the resident Dr. Comer and agree with the findings and care plan. Subjective Mr. Garza reports he feels well this morning. He has not felt feverish overnight or today. He denies any pain/burning with urination, abdominal pain, nausea, vomiting, diarrhea, headache, cough, chills, shortness of breath, or new rash. He endorses a chronic R foot ulcer which is not currently painful. He notes he has some numbness in his toes, but intact sensation in his feet. No chest pain/c hest pressure/palpitations/lightheadedness/syncope/dizziness today. No questions or concerns. Review of Systems Review of Systems: All systems reviewed & are unremarkable except as noted in HPI & below Physical Exam Physical Exam: General: A&Ox3. NAD. Cooperative. HEENT: Atraumatic, normocephalic. Pulm: CTAB A&P. -wheezes, -rales, -rhonchi. Symmetrical chest rise. No increase work of breathing. No respiratory distress. Cardiac: RRR, -mrg. Radial pulses intact and symmetrical. Abdominal: Nontender, nondistended, soft. BS present. Extremity: Right foot with gauze dressing in place, C/D/I. Dressing removed and chronic foot ulcer visualized. 3 cm ulcer without surrounding erythema, fluctuance, tenderness, or discharge present on the lateral right plantar surface of the foot. See photo attached. Sensation intact in forefoot bilaterally, numbness to soft touch in the distal toes bilaterally. Dorsalis pedis pulse intact bilaterally. Results & Data Vital Signs (Past 12 Hours) Vital Signs Temp Pulse Resp BP Pulse Ox 05/04/19 10:58 36.4 C L 85 16 91/53 L 98 05/04/19 08:54 90 99/53 L 05/04/19 07:01 36.5 C 79 16 91/54 L 95 05/04/19 06:09 37.0 C 05/04/19 04:30 114/59 L 05/04/19 04:00 38.4 C H 105 H 16 101/54 L 97 05/04/19 03:30 130/72 05/04/19 03:00 96 H 136/69 05/04/19 02:30 114 H 138/67 05/04/19 02:00 106 H 132/71 PG Care Time/CCT Total # of Minutes Spent Total Time Spent with Patient: Total time spent is greater than 50% in coordination of care (as documented) at patient's floor/unit and/or counseling patient: Resident Activity Tracking Resident Involvement: Resident Care Provided Care Provided: Adult Hospital Medicine (1) Fever Fever type: unspecified Qualified Code(s): R50.9 - Fever, unspecified (2) Leukocytosis Leukocytosis type: unspecified Qualified Code(s): D72.829 - Elevated white blood cell count, unspecified
[2019-05-04] MEDS: DONEPEZIL HCL 10 MG TAB PO SCH (20:04)
[2019-05-04] MEDS: ATORVASTATIN 40 MG TAB PO SCH (20:05)
[2019-05-04] MEDS ORDERED: VANCOMYCIN CONSULT ACTIVE PRN (22:45)
[2019-05-04] MEDS ORDERED: VANCOMYCIN HCL 1,750 MG in SODIUM CHLORIDE 0.9% 500 ML IV ONE (23:15)
[2019-05-05 07:22] LABS: Basophils # (auto) 0.01 K/uL (0-0.2); Basophils % (auto) 0.2 %; Eosinophils # (auto) 0.17 K/uL (0-0.5); Eosinophils % (auto) 3.9 %; Hematocrit (blood only) 33.4 % (42-52); Hemoglobin 10.5 g/dL (14.0-18.0); Lymphocytes % (auto) 20.6 %; Mean Corpuscular Hgb Conc 31.4 g/dL (32-36); Mean Corpuscular Volume 87.9 fL (80-100); Mean Platelet Volume 10.2 fL (7.4-10.4); Monocytes # (auto) 0.36 K/uL (0.11-0.59); Monocytes % (auto) 8.2 %; Neutrophils # (auto) 2.93 K/uL (1.4-6.5); Neutrophils % (auto) 67.1 %; Platelet Count 152 K/uL (130-400); RDW Coefficient of Variation 14.9 % (11.5-14.5); RDW Standard Deviation 48.3 fL (36.4-46.3); White Blood Count 4.37 K/uL (4.8-10.8)
[2019-05-05 07:59] LABS: Albumin Globulin Ratio 0.8 (0.9-2); Albumin Level 2.6 gm/dl (3.4-5.0); BUN Creatinine Ratio 24.3 (10-20); Bilirubin,Total 0.4 mg/dl (0.2-1); Calcium 8.8 mg/dl (8.5-10.1); Creatinine Clr Calc Pharmacy 128.9 ml/min; Est GFR (African American) 126.7; Est GFR (Non-African American) 109.3; Globulin 3.1 gm/dl (2.5-4.0); Potassium 3.6 mmol/L (3.5-5.1); Total Protein 5.7 gm/dl (6.4-8.2)
[2019-05-05] MEDS: VANCOMYCIN HCL 1,000 MG in SODIUM CHLORIDE 0.9% 250 ML IV SCH ×3 (08:05→23:51)
[2019-05-05] MEDS: APIXABAN 5 MG TABLET PO SCH ×2 (08:06→21:18)
[2019-05-05] MEDS: MULTIVITAMIN TAB PO SCH (08:06)
[2019-05-05] MEDS: MAGNESIUM OXIDE 400 MG TAB PO SCH (08:06)
[2019-05-05] MEDS: CEROVITE ADV FORMULA TAB PO SCH ×2 (08:06→21:18)
[2019-05-05] MEDS: METOPROLOL TARTRATE 50 MG TAB PO SCH ×2 (08:06→21:18)
[2019-05-05] MEDS: INSULIN ASPART 100 UNITS/ML 3 ML PEN SC SCH ×4 (08:06→21:40)
[2019-05-05] MEDS: PANTOprazole 40 MG TAB PO SCH (08:06)
[2019-05-05] MEDS: FERROUS SULFATE 325 MG TAB PO SCH (08:06)
--- NOTE | 2019-05-05 10:24 | Magnetic Resonance Report ---
Study: MRI right foot HISTORY:: Open wound FINDINGS: Sitting characteristics of the bony structures indicate abnormal signal characteristics of the base of the fourth and fifth metatarsals. There is moderate generalized soft tissue edematous vitor nge about the ankle. There is an ulcerating wound the plantar aspect of the foot immediately inferior to the fourth and fifth metatarsals. There is no evidence for a drainable abscess or collection. Mild generalized soft tissue edematous an d or cellulitis at changes present. All major ligamentous and tendinous structures appear intact. IMPRESSION: 1. Findings consistent with an open wound with associated granulation tissue immedially inferior to t he fourth and fifth metatarsals. 2. Findings consistent with osteomyelitis and bony destructive change at the base of the fourth and f ifth metatarsals. 3. Moderate degenerative change of all remaining bony structures. 4. Generalized soft tissue edema and/or cellulitis. 5. No evidence for drainable abscess or collection. Electronically signed by: Tesfaye Engle M.D. 05/05/2019 10:22 AM
--- NOTE | 2019-05-05 11:39 | Family Medicine Progress Note ---
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 fib who presents with fatigue confusion and generalized weakness and who was found to be in A. fib with RVR. His hospital course has been complicated by intermittent fever of unknown origin. Atrial fibrillation with RVR Clinically improved, hemodynamically stable Anticoagulated with apixaban 5 mg p.o. twice daily No chest pain, shortness of breath on admit Continue metoprolol 50 mg p.o. twice daily Fever of unknown origin No fevers overnight He has a history of chronic diabetic nonhealing right foot ulcer and osteomyelitis, however examination of the ulcer does not show any signs of cellulitis or deep infection and is not painful. - MRI shows osteomyelitis, pending comparison and review alongside prior imaging. UA negative, chest x-ray with no acute findings of pneumonia 02/09/2019 he was treated for a 5.1 x 2.5 cm left subhepatic abscess with poc kets of gas with negative culture and no organisms seen on Gram stain. Repeat CT scan 03/08/2019 showed resolution of the abscess and no evidence of residual infection or fluid. He shows no signs of abdominal tenderness or infection on clinical exam today. Blood cultures x1 positive for GPC pending speciation, empiric vanco resumed. -Stool c diff test pending Coronary artery disease as/P PCI Continue SENIOR SYSTEMS ARCHITECT metoprolol 50 mg twice daily Continue atorvastatin 40 mg daily Plavix/aspirin on hold but may restart if advised by cardiology Left MCA CVA with hemorrhage 03/2019 Some residual expressive aphasia, otherwise minimal deficits Continue home donepezil Type 2 diabetes mellitus with neuropathy and diabetic foot ulcer Glucose checks AC/at bedtime Hold SENIOR SYSTEMS ARCHITECT metformin Insulin SSI GERD Continue SENIOR SYSTEMS ARCHITECT Protonix 40 mg daily Diarrhea Liquid BMs returned, 3x this morning without abdominal pain or cramping - Ordered c. diff testing DVT prophylaxis: Eliquis CODE STATUS: Full (2) Diastolic congestive heart failure: (3) Leukocytosis: (4) Fever: (5) Loose stools: Supervising Physician Co-Signing Physician Notes Resident Physician Supervision Note: I independently interviewed and examined the patient and verified the laird history and physical, reviewed labs and image studies, discussed the case with the resident Dr. Comer and agree with the findings and care plan. Ria Valle reports he has had 3 episodes of watery diarrhea again this morning. Other than the diarrhea, he feels well. Denies fever, chills, night sweats overnight. He does not have any abdominal pain. He has had no chest pain, chest pressure, shortness of breath, difficulty breathing. He does not have any pain with urination or difficulty urinating. He has no pain at the ulcer in his right foot, and reports he does not have pain when he stands on it. His case was discussed with his daughter who notes that she will be away and unable to bring him home he is discharged after Wednesday. She is concerned about her ability to provide the care he needs at home. Would like to come back later this afternoon to discuss further. No other questions or concerns at this time. Review of Systems Review of Systems: All systems reviewed & are unremarkable except as noted in HPI & below Results & Data Vital Signs (Past 12 Hours) Vital Signs Temp Pulse Pulse Resp BP BP Pulse Ox 05/05/19 08:17 36.5 C 122 H 19 99/59 L 95 05/05/19 07:55 117 H 102/68 05/05/19 04:27 36.9 C 105 H 20 134/78 95 05/05/19 00:27 36.9 C 111 H 18 112/73 96 PG Care Time/CCT Total # of Minutes Spent Total Time Spent with Patient: Total time spent is greater than 50% in coordination of care (as documented) at patient's floor/unit and/or counseling patient: Resident Activity Tracking Resident Involvement: Resident Care Provided Care Provided: Adult Hospital Medicine (1) Fever Fever type: unspecified Qualified Code(s): R50.9 - Fever, unspecified (2) Leukocytosis Leukocytosis type: unspecified Qualified Code(s): D72.829 - Elevated white blood cell count, unspecified
--- NOTE | 2019-05-05 13:17 | Pharmacy Report ---
Pharmacy Abx Dose Short Note - Date of Service May 05, 2019 - Assessment & Plan Assessment * 63 year old M receiving VANCOMYCIN IV for fever, bacteremia (GPC in blood cx) * Day # 2 of antimicrobial therapy * Micro is reporting GPC in the anaerobic bottle of 1 set of blood cultures (reported positive a little more than 24 hrs after being drawn). * No PCR testing is performed on BLCXs in anaerobic bottles * No leukocytosis noted on labs, currently afebrile, HR's had been elevated but pt in a fib * Renal fxn stable * Pt does have h/o chronic R foot ulcer as well as osteomyelitis and hepatic abscess Plan Vancomycin * Loading dose: 1750mg IV x 1 * Maint dose: 1000mg (13mg/kg) IV Q 8 hrs * Goal trough level for bacteremia : 15 to 20 mcg/mL * Trough level ordered for tomorrow AM w/ 4th maint dose Pharmacy will continue to follow and will adjust dose/frequency as necessary. Thank you.
[2019-05-05] MEDS: ATORVASTATIN 40 MG TAB PO SCH (21:18)
[2019-05-05] MEDS: DONEPEZIL HCL 10 MG TAB PO SCH (21:18)
[2019-05-06] MEDS ORDERED: VANCOMYCIN TROUGH ONE (07:30)
[2019-05-06 07:44] LABS: Basophils # (auto) 0.02 K/uL (0-0.2); Basophils % (auto) 0.5 %; Eosinophils # (auto) 0.22 K/uL (0-0.5); Eosinophils % (auto) 5.2 %; Hematocrit (blood only) 33.4 % (42-52); Hemoglobin 10.8 g/dL (14.0-18.0); Immature Granulocytes # (auto) 0.01 K/uL (0.00-0.02); Immature Granulocytes % (auto) 0.2 %; Lymphocytes # (auto) 0.98 K/uL (1.2-3.4); Lymphocytes % (auto) 23.2 %; Mean Corpuscular Hgb Conc 32.3 g/dL (32-36); Mean Corpuscular Volume 84.6 fL (80-100); Mean Platelet Volume 10.2 fL (7.4-10.4); Monocytes # (auto) 0.29 K/uL (0.11-0.59); Monocytes % (auto) 6.9 %; Neutrophils # (auto) 2.71 K/uL (1.4-6.5); Platelet Count 173 K/uL (130-400); RDW Coefficient of Variation 14.6 % (11.5-14.5); RDW Standard Deviation 45.5 fL (36.4-46.3); Red Blood Count 3.95 M/uL (4.7-6.1); White Blood Count 4.23 K/uL (4.8-10.8)
[2019-05-06 08:14] LABS: Creatinine Clr Calc Pharmacy 147.3 ml/min; Est GFR (African American) 133.8; Est GFR (Non-African American) 115.5
[2019-05-06] MEDS: METOPROLOL TARTRATE 50 MG TAB PO SCH (08:49)
[2019-05-06] MEDS: FERROUS SULFATE 325 MG TAB PO SCH (08:49)
[2019-05-06] MEDS: PANTOprazole 40 MG TAB PO SCH (08:49)
[2019-05-06] MEDS: INSULIN ASPART 100 UNITS/ML 3 ML PEN SC SCH ×2 (08:49→12:57)
[2019-05-06] MEDS: MAGNESIUM OXIDE 400 MG TAB PO SCH (08:49)
[2019-05-06] MEDS: APIXABAN 5 MG TABLET PO SCH (08:49)
[2019-05-06] MEDS: CEROVITE ADV FORMULA TAB PO SCH (08:49)
[2019-05-06] MEDS: MULTIVITAMIN TAB PO SCH (08:49)
[2019-05-06] MEDS: VANCOMYCIN HCL 1,000 MG in SODIUM CHLORIDE 0.9% 250 ML IV SCH (08:51)
--- NOTE | 2019-05-06 08:53 | Family Medicine Progress Note ---
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 fib who presents with fatigue confusion and generalized weakness and who was found to be in A. fib with RVR. His hospital course has been complicated by intermittent fever of unknown origin. Atrial fibrillation with RVR Clinically improved, hemodynamically stable Anticoagulated with apixaban 5 mg p.o. twice daily No chest pain, shortness of breath on admit Continue metoprolol 50 mg p.o. twice daily - Dilt Drip? Fever of unknown origin No fevers overnight, if anything episode hypothermia He has a history of chronic diabetic nonhealing right foot ulcer and osteomyelitis, however examination of the ulcer does not show any signs of cellulitis or deep infection and is not painful. - MRI shows osteomyelitis, pending comparison and review alongside prior imaging. UA negative, chest x-ray with no acute findings of pneumonia 02/09/2019 he was treated for a 5.1 x 2.5 cm left subhepatic abscess with pockets of gas with negative culture and no organisms seen on Gram stain. Repeat CT scan 03/08/2019 showed resolution of the abscess and no evidence of residual infection or fluid. He shows no signs of abdominal tenderness or infection on clinical exam today. Amoeba? Blood cultures x1 positive for coag neg staph, likely contaminant however in this patient must treat conservatively Continue vancomycin day 3 of 5 repeat blood cultures obtained, if negative DC Vanco Coronary artery disease as/P PCI Continue FURNITURE REPAIRER metoprolol 50 mg twice daily Continue atorvastatin 40 mg daily Plavix/aspirin on hold but may restart if advised by cardiology Left MCA CVA with hemorrhage 03/2019 Some residual expressive aphasia, otherwise minimal deficits Continue home donepezil Type 2 diabetes mellitus with neuropathy and diabetic foot ulcer Glucose checks AC/at bedtime Hold FURNITURE REPAIRER metformin Insulin SSI GERD Continue FURNITURE REPAIRER Protonix 40 mg daily Diarrhea Liquid BMs returned, 3x this morning without abdominal pain or cramping Patient C. difficile negative Vancomycin 125 mg 4 times daily by mouth x10 days if testing is positive DVT prophylaxis: Eliquis CODE STATUS: Full (2) Diastolic congestive heart failure: (3) Leukocytosis: (4) Fever: (5) Loose stools: Results & Data Vital Signs (Past 12 Hours) Vital Signs Temp Pulse Pulse Resp BP BP Pulse Ox 05/06/19 07:30 36.8 C 100 H 18 129/69 97 05/06/19 03:54 36.7 C 92 H 18 107/57 L 93 05/05/19 23:37 36.4 C L 81 19 105/71 97 05/05/19 23:20 37.1 C 89 17 99/51 L 95 05/05/19 21:23 101 H 115/66 Laboratory Results 05/06/19 05/06/19 05/06/19 Range/Units 07:22 07:22 07:22 WBC 4.23 L (4.8-10.8) K/uL RBC 3.95 L (4.7-6.1) M/uL Hgb 10.8 L (14.0-18.0) g/dL Hct 33.4 L (42-52) % MCV 84.6 (80-100) fL MCH 27.3 (25-34) pg MCHC 32.3 (32-36) g/dL RDW Std Deviation 45.5 (36.4-46.3) fL RDW Coeff of Clay 14.6 H (11.5-14.5) % Plt Count 173 (130-400) K/uL MPV 10.2 (7.4-10.4) fL Immature Gran % (Auto) 0.2 % Neut % (Auto) 64.0 % Lymph % (Auto) 23.2 % [place] % (Auto) 6.9 % Eos % (Auto) 5.2 % Baso % (Auto) 0.5 % Immature Gran # (Auto) 0.01 (0.00-0.02) K/uL Neut # (Auto) 2.71 (1.4-6.5) K/uL Lymph # (Auto) 0.98 L (1.2-3.4) K/uL [place] # (Auto) 0.29 (0.11-0.59) K/uL Eos # (Auto) 0.22 (0-0.5) K/uL Baso # (Auto) 0.02 (0-0.2) K/uL Creatinine 0.49 L (0.6-1.4) mg/dl Est Cr Clr Drug Dosing 147.3 ml/min Est GFR ( Amer) 133.8 Est GFR (Non-Af Amer) 115.5 POC Glucose (70-99) Stl C. diff Tox B Gene (Neg) Vancomycin Trough 16.9 (See Comment) mcg/ml 05/06/19 05/05/19 05/05/19 Range/Units 07:20 20:46 17:33 WBC (4.8-10.8) K/uL RBC (4.7-6.1) M/uL Hgb (14.0-18.0) g/dL Hct (42-52) % MCV (80-100) fL MCH (25-34) pg MCHC (32-36) g/dL RDW Std Deviation (36.4-46.3) fL RDW Coeff of Clay (11.5-14.5) % Plt Count (130-400) K/uL MPV (7.4-10.4) fL Immature Gran % (Auto) % Neut % (Auto) % Lymph % (Auto) % [place] % (Auto) % Eos % (Auto) % Baso % (Auto) % Immature Gran # (Auto) (0.00-0.02) K/uL Neut # (Auto) (1.4-6.5) K/uL Lymph # (Auto) (1.2-3.4) K/uL [place] # (Auto) (0.11-0.59) K/uL Eos # (Auto) (0-0.5) K/uL Baso # (Auto) (0-0.2) K/uL Creatinine (0.6-1.4) mg/dl Est Cr Clr Drug Dosing ml/min Est GFR ( Amer) Est GFR (Non-Af Amer) POC Glucose 117 H 138 H (70-99) Stl C. diff Tox B Gene Negative Cdiff Gene (Neg) Vancomycin Trough (See Comment) mcg/ml 05/05/19 05/05/19 Range/Units 16:24 11:16 WBC (4.8-10.8) K/uL RBC (4.7-6.1) M/uL Hgb (14.0-18.0) g/dL Hct (42-52) % MCV (80-100) fL MCH (25-34) pg MCHC (32-36) g/dL RDW Std Deviation (36.4-46.3) fL RDW Coeff of Clay (11.5-14.5) % Plt Count (130-400) K/uL MPV (7.4-10.4) fL Immature Gran % (Auto) % Neut % (Auto) % Lymph % (Auto) % [place] % (Auto) % Eos % (Auto) % Baso % (Auto) % Immature Gran # (Auto) (0.00-0.02) K/uL Neut # (Auto) (1.4-6.5) K/uL Lymph # (Auto) (1.2-3.4) K/uL [place] # (Auto) (0.11-0.59) K/uL Eos # (Auto) (0-0.5) K/uL Baso # (Auto) (0-0.2) K/uL Creatinine (0.6-1.4) mg/dl Est Cr Clr Drug Dosing ml/min Est GFR ( Amer) Est GFR (Non-Af Amer) POC Glucose 106 H 156 H (70-99) Stl C. diff Tox B Gene (Neg) Vancomycin Trough (See Comment) mcg/ml Medications Administered Current Inpatient Medications Acetaminophen (Tylenol) 650 mg PO Q4H PRN PRN Reason: Pain or Fever Stop: 06/03/19 04:43 Apixaban (Eliquis) 5 mg PO BID [facility] Stop: 06/03/19 08:59 Last Admin: 05/05/19 21:18 Dose: 5 mg Documented by: Atorvastatin Calcium (Lipitor) 40 mg PO QPM [facility] Stop: 06/03/19 20:59 Last Admin: 05/05/19 21:18 Dose: 40 mg Documented by: Dextrose (Dextrose 50%) 25 - 50 ml IV UD PRN; Protocol PRN Reason: Hypoglycemia Protocol Stop: 06/03/19 00:52 Donepezil HCl (Aricept) 10 mg PO HS [facility] Stop: 06/03/19 20:59 Last Admin: 05/05/19 21:18 Dose: 10 mg Documented by: Ferrous Sulfate (Feosol) 325 mg PO DAILY [facility] Stop: 06/03/19 08:59 Last Admin: 05/05/19 08:06 Dose: 325 mg Documented by: Glucagon (Glucagen) 1 mg SQ UD PRN; Protocol PRN Reason: Hypoglycemia Protocol Stop: 06/03/19 00:52 Glucose (Glucose 40%) 15 - 30 gm PO UD PRN; Protocol PRN Reason: Hypoglycemia Protocol Stop: 06/03/19 00:52 Glucose (Dex4 Glucose) 4 - 8 tabs PO UD PRN; Protocol PRN Reason: Hypoglycemia Protocol Stop: 06/03/19 00:52 Diltiazem HCl 125 mg/ Dextrose 125 mls @ 0 mls/hr IV .Q0M [facility]IDEL; Protocol Stop: 06/02/19 19:14 Last Titration: 05/04/19 07:22 Dose: 0 mg/hr, 0 mls/hr Documented by: Vancomycin HCl 1,000 mg/ (Sodium Chloride) 270 mls @ 125 mls/hr IV Q8H [facility] Stop: 05/19/19 07:59 Last Infusion: 05/06/19 03:59 Dose: Infused Documented by: Insulin Aspart (Novolog Flexpen) 0 units SC ACHS [facility] Stop: 06/03/19 07:29 Last Admin: 05/05/19 21:40 Dose: Not Given Documented by: Magnesium Oxide (Mag-Ox) 400 mg PO QAM [facility] Stop: 06/03/19 08:59 Last Admin: 05/05/19 08:06 Dose: 400 mg Documented by: Metoprolol Tartrate (Lopressor) 50 mg PO BID [facility] Stop: 06/03/19 08:59 Last Admin: 05/05/19 21:18 Dose: 50 mg Documented by: Miscellaneous (Carbohydrates For Hypoglycemia) 15 - 30 gm PO UD PRN PRN Reason: Hypoglycemia Treatment Stop: 06/03/19 00:52 Miscellaneous Information (Consult) 1 ea N/A UD PRN PRN Reason: Consult Stop: 06/03/19 22:44 Multivitamins (Multivitamin Tab) 1 tab PO QAM [facility] Stop: 06/03/19 08:59 Last Admin: 05/05/19 08:06 Dose: 1 tab Documented by: Multivitamins/Minerals (Multivitamin W/ Minerals Tab) 1 tab PO BID [facility] Stop: 06/03/19 08:59 Last Admin: 05/05/19 21:18 Dose: 1 tab Documented by: Pantoprazole Sodium (Protonix) 40 mg PO DAILY [facility] Stop: 06/03/19 08:59 Last Admin: 05/05/19 08:06 Dose: 40 mg Documented by: PG Care Time/CCT Total # of Minutes Spent Total Time Spent with Patient: Total time spent is greater than 50% in coordination of care (as documented) at patient's floor/unit and/or counseling patient: (1) Leukocytosis Leukocytosis type: unspecified Qualified Code(s): D72.829 - Elevated white blood cell count, unspecified (2) Fever Fever type: unspecified Qualified Code(s): R50.9 - Fever, unspecified
--- NOTE | 2019-05-06 09:00 | Pharmacy Report ---
Pharmacy Abx Dose Short Note - Date of Service May 06, 2019 - Assessment & Plan Assessment 63 year old M receiving vancomycin IV for empiric treatment of bacteremia/possible osteomyelitis Day # 3 of antimicrobial therapy. Foot MRI (05/05): Findings consistent with osteomyelitis at the base of the 4th and 5th metatarsals -Patient has a history of chronic diabetic nonhealing right foot ulcer/osteomyelitis Blood cultures x 2: anaerobic bottle x 1 growing coagulase negative Staphylococcus (not lugadensis) Afebrile x 48 hours Plan Vancomycin * Trough level of 16.9 mcg/mL is therapeutic * Continue dose of 1000 mg IV every 8 hours * Goal trough level for bacteremia/osteomyelitis : 15 to 20 mcg/mL * Follow-up trough level ordered for: 05/08/19 @0748 Pharmacy will continue to follow and will adjust dose/frequency as necessary. Thank you.
--- NOTE | 2019-05-06 15:06 | Discharge Summary ---
Date of Service May 06, 2019 Admission HPI Per Admitting Provider 63-year-old male presents to the emergency department with his . The great majority of the history is per the patient's . The patient himself is awake, alert to name + date of + "hospital" in [place], but states that the date is January 1942. At this point he became a little frustrated and some of his expressive aphasia developed. Per the patient's , patient was generally asymptomatic this morning. He had what she describes as a "large explosive bowel movement". Sometime after this patient was noted to have increased fatigue, feel cold, increased confusion, and generalized weakness. Apparently he was still able to partially participate in home health and physical therapy appointments. However, one of his visiting caregivers noted his heart rate was around 125 and recommended ED evaluation. Outside of the single loose stool this morning, there were no reports of any recent fevers, illness, pain anywhere, vomiting, difficulty breathing, chest pain, headache, acute rashes, or other acute concerns. He does have a known right lateral midfoot ulcer that is been present for over a year. Apparently it had healed for a brief time but then became more exacerbated during his December 2018 hospitalization from his hemorrhagic CVA. He has home wound care ongoing and most recently they recommended Xeroform dressings. Patient specifically says that this area is not painful and his mentions during previous infections it was quite painful. - Past medical history includes hypertension, hyperlipidemia, CAD, atrial fibrillation, diastolic congestive heart failure, diabetes type 2, peripheral neuropathy, hemorrhagic left MCA CVA, severe oropharyngeal dysphasia, chronic iron deficiency anemia, GERD, gastric ulcer, hepatic abscess, question of emphysema, depression, anxiety, macular degeneration, right ankle contracture. - Past surgical history includes partial amputation of the angioplasty and stenting to the RCA in 2001, gastric bypass surgery 2006, cataract surgery, left foot wound debridement for osteomyelitis, wedge resection of the MTP joints of the left foot, left knee arthroscopy, PEG tube placement January 2019. - Social history includes smoking a pack per day for 32 years but stopped in 2001. Denies alcohol use. Retired, , lives at home. Admission Exam Per Admitting Provider GENERAL: Awake, alert, appears mildly chronically ill but at present is baseline conversational and does not appear in acute distress. HENT: Normocephalic, atraumatic. Oropharynx unremarkable. EYES: Normal conjunctiva. Sclera non-icteric. NECK: Inspection normal. Non-tender. Supple and full ROM. CARDIAC: +S1S2 irregularly irregular and borderline tachycardic, no murmurs. RESPIRATORY: Clear to auscultation. No wheezes or rales. Normal respiratory effort. GI: +BS, soft, non-distended. No tenderness to palpation. No rebound or guarding. EXTREMITIES: No pedal edema or calf tenderness. Moving all extremities naturally and easily. There is an approximately 2 cm circular ulceration on the right lateral midfoot. There is no surrounding erythema, edema, and the entire area is non-tender. NEURO: Has some expressive aphasia on stressing. Principal Diagnosis A. fib RVR Discharge Exam General: A&Ox3. NAD. Cooperative. HEENT: Atraumatic, normocephalic. Pulm: CTAB A&P. -wheezes, -rales, -rhonchi. Symmetrical chest rise. No increase work of breathing. No respiratory distress. Cardiac: RRR, -mrg. Radial pulses intact and symmetrical. Abdominal: Nontender, nondistended, soft. BS present. Extremity: Right foot with gauze dressing in place, C/D/I. Dressing removed and chronic foot ulcer visualized. 3 cm ulcer without surrounding erythema, fluctuance, tenderness, or discharge present on the lateral right plantar surface of the foot. See photo attached. Sensation intact in forefoot bilaterally, numbness to soft touch in the distal toes bilaterally. Dorsalis pedis pulse intact bilaterally Discharge Data Allergies Allergy/AdvReac Type Severity Reaction Status Date / Time No Known Allergies Allergy Verified 05/03/19 20:32 Consultations 05/03/19 21:18 ED Decision to Admit Stat Ordered Studies 05/03/19 18:57 CT head/brain wo con Stat 05/05/19 12:14 MR foot RT w/o con Routine Hospital Course (1) Bacteremia: Leonard Garza is 63-year-old male with a past medical history of hypertension, hyperlipidemia, coronary artery disease as/P PCI, diastolic CHF with EF 55%, type 2 diabetes mellitus with peripheral neuropathy and chronic right foot ulcer, hemorrhagic left MCA CVA in 03/2019 with mild residual expressive aphasia, GERD, iron deficiency, hepatic abscess, and A. fib who presents with fatigue confusion and generalized weakness and who was found to be in A. fib with RVR. His hospital course has been complicated by intermittent fever of unknown origin. Atrial fibrillation with RVR Patient was admitted with atrial fibrillation with RVR, this is a chronic problem for him. He has been previously anticoagulated on apixaban 5 mg p.o. twice daily, this was continued during his hospital stay and will be continued on discharge. Throughout his hospitalization he has described no chest pain, nor shortness of breath. He was placed on diltiazem drip and converted back to p.o. metoprolol. On discharge his metoprolol was increased to 75 mg twice daily. He is to follow-up with his primary care physician 1 week after discharge. Fever of unknown origin Patient presented with a fever of unknown origin, has been afebrile since 05/04. Blood cultures were obtained demonstrating coag negative staph, MRI showed chronic osteomyelitis, patient has a history of a chronic diabetic nonhealing right foot ulcer. Ulcer did not appear to be cellulitic on examination. Urin alysis was negative, chest x-ray was not consistent with pneumonia. Of note on 02/09/2019 treated for a 5.1 x 2.5 cm left subhepatic abscess with pockets of gas with negative culture and no organisms on Gram stain repeat CT on 03/08/2019 showed resolution of the abscess and no evidence of residual infection or fluid. He had no signs of abdominal tenderness or infection. Per standard of care the patient was treated with 3 days of empiric vancomycin therapy and repeat occult blood cultures were obtained on the day of discharge. Antibiotics were stopped on discharge and patient is to follow-up with his primary care provider in 1 week we will call with the culture results Coronary artery disease as/P PCI Continue [employer] metoprolol 50 mg twice daily, increased to 75 mg on discharge Continue atorvastatin 40 mg daily Would resume Plavix and aspirin therapy as long as cleared by cardiology Left MCA CVA with hemorrhage 03/2019 Some residual expressive aphasia, otherwise minimal deficits Continue home donepezil Type 2 diabetes mellitus with neuropathy and diabetic foot ulcer Glucose checks AC/at bedtime Home metformin was held during the admission and placement was placed on SSI insulin, resume to hold metformin on discharge GERD Continue [employer] Protonix 40 mg daily Diarrhea -Patient had a few episodes of diarrhea, C. difficile testing was negative. Diarrhea resolved prior to discharge Cleared by pt/ot for discharge DVT prophylaxis: Eliquis CODE STATUS: Full (2) Diastolic congestive heart failure: (3) Leukocytosis: (4) Fever: (5) Loose stools: Total Time Total Time Spent Total Time Spent (In Minutes): >30 Discharge Plan Discharge Items Patient Disposition: Home - Self-Care Reason For Visit: AFIB WITH RVR,FEVER Discharge Diagnosis: General: A&Ox3. NAD. Cooperative. HEENT: Atraumatic, normocephalic. Pulm: CTAB A&P. -wheezes, -rales, -rhonchi. Symmetrical chest rise. No increase work of breathing. No respiratory distress. Cardiac: RRR, -mrg. Radial pulses intact and symmetrical. Abdominal: Nontender, nondistended, soft. BS present. Extremity: Right foot with gauze dressing in place, C/D/I. Dressing removed and chronic foot ulcer visualized. 3 cm ulcer without surrounding erythema, fluctuance, tenderness, or discharge present on the lateral right plantar surface of the foot. See photo attached. Sensation intact in forefoot bilaterally, numbness to soft touch in the distal toes bilaterally. Dorsalis pedis pulse intact bilaterally Discharge Goals: Therapeutic intervention Activity: Resume your previous activity Activity Comment: as tolerated Non-emergency contact: Primary Care Provider Call non-emergency contact if: you have any medication questions, your pain is unusual for you and your temperature is above 101.5 Follow-up/Referrals: Lauren Raymond MD [Primary Care Provider] - Diet: Carb Consistent or DM2, Heart Healthy, Low Fat and Low Sodium (2gm) Addtl Provider Instructions: Care instructions: You were admitted to [facility] for treatment of atrial fibrillation with rapid ventricular, fever. A discharge summary will be sent to your primary care physician to ensure continuity of care.Please bring this discharge summary with you to your next office appointment so that your provider can review it at that time. Follow-up appointments: - Keep all your follow-up appointments as already scheduled. If you cannot make an appointment, notify your provider. - Please call to request a follow-up appointment with your primary care physician within one week of discharge. Please let us know if you are unable to obtain an appointment Medications: - Your medication list has been reviewed and reconciled upon discharge to ensure accuracy and continuity of care. - You are provided with a list of all your current medications at this time. Please review this list closely and make note of any changes. - Please take all of your medications exactly as prescribed. - Tell your primary care provider if you cannot afford your medications. - Call your primary care provider if you are having any side effects or any other problems. - Call your primary care provider before taking any over the counter medications or supplements, including herbals and vitamins, because some of these may interact with your current medications and/or make your symptoms worse. Symptoms: Please call your primary care provider for symptoms including, but not limited to: fevers (temperatures greater than 100.4), chills, intractable nausea or vomiting, diarrhea, rash, shortness of breath, bleeding, pain, or if you experience any worsening of the symptoms that brought you to the hospital. For EMERGENCY and VERY SERIOUS health-related issues, such as chest pain, shortness of breath, or sudden onset of the symptoms that brought you to the hospital, you may need to call 911 or go directly to the Emergency Room It has been our privilege to take care of you during your hospital stay. And Above All Else Fell Better! Best Wishes, Kev Amaya MD PGY1 Resident, Family & Community Medicine [facility] Residency at [address], [address] : [place] [address] Prescriptions: New metoprolol tartrate 50 mg Tablet 75 mg PO BID 30 Days Qty: 90 RF: 0 Continued multivitamin tablet 1 tab PO QAM RF: 0 ferrous sulfate 325 mg (65 mg iron) tablet,delayed release (DR/EC) 325 mg PO DAILY RF: 0 atorvastatin 40 mg tablet 40 mg PO QPM RF: 0 pantoprazole 40 mg tablet,delayed release (DR/EC) 40 mg PO DAILY RF: 0 metformin 1,000 mg tablet 1,000 mg PO BID Qty: 180 RF: 1 donepezil 10 mg tablet 10 mg PO HS RF: 0 Eliquis 5 mg tablet 5 mg PO BID RF: 0 PreserVision AREDS-2 [id number] on-gjsr-dt-mg capsule 1 tab PO BID RF: 0 Discontinued metoprolol tartrate [Lopressor] 50 mg tablet 50 mg PO BID RF: 0 Stand-Alone Forms: [facility] Discharge Orders: Discharge Order (Routine); Ordered 05/06/19 Ordered By: Kev Amaya Admission Data Admit Date/Time: 05/03/19 23:41 Attending Provider: Elsy Lu Admit Provider: Boris Reza Primary Care Provider: Lauren Raymond V. Other Providers: Apurva Amaya Service: Telemetry Other Interventions: Discharge Summary Assessment (RN) Last Done: 05/06/19 15:14 DC Date/Time DO NOT enter until pt leaves facility: 05/06/19 15:55 Supervising Physician Co-Signing Physician Notes Resident Physician Supervision Note: I independently interviewed and examined the patient and verified the laird history and physical, reviewed labs and image studies, discussed the case with the resident Dr. Amaya and agree with the findings and care plan. Time spent in discharge 35 min Resident Activity Tracking Resident Involvement: Resident Care Provided Care Provided: Adult Hospital Medicine
[2019-05-06] MEDS ORDERED: METOPROLOL TARTRATE 50 MG TAB PO SCH (21:00)
[2019-05-08] MEDS ORDERED: VANCOMYCIN TROUGH ONE (07:30)
== END 2019-05-06 15:55 | disposition home or self-care (01) | DRG 309 ==
LOC: ED 18:29 → 2E 23:41 → SUATTDRO 23:41 → 2E 05-04 00:28

== ENCOUNTER 2019-08-17 13:25 | Inpatient (IN) ==
--- NOTE | 2019-08-16 10:56 | Anesthesiology Consultation ---
Date of Service August 16, 2019 Assessment & Plan Chart Review Chart Review: Acceptable Risk for Surgery and Patient NOT seen in Pre Admission Testing Complicated patient- Patient has Chronic diastolic Heart Failure. Hemorrhagic stroke 02/17, Pt seen by his glass crusher on 07/10/19 and found to be hypervolemic. He was started on Lasix and asked to follow up in one month. Pt has not f/u with cardiology, but saw his primary care provider on 08/07/19. Surgery was scheduled for 09/07/19. On 08/16/19, pt moved to 08/17/19 because per the office "the leg is falling off". Do to the urgent nature of the procedure, it is ok to proceed without cardiac consult. Consults Requested none History Surgery Operation Date: 08/17/19 07:30 Proposed Procedures p Right Below Knee Amputation - Neo Banerjee DO Operation Date: 09/07/19 13:30 Proposed Procedures p Right Below Knee Amputation - Neo Banerjee DO Height/Weight Height: 5 ft 7.75 in Weight: 72.575 kg Allergies Allergy/AdvReac Type Severity Reaction Status Date / Time No Known Allergies Allergy Verified 08/15/19 12:08 Medications Home Medications Medication Instructions Recorded Confirmed Last Taken multivitamin tablet 1 tab PO QAM 06/29/18 08/15/19 12/25/18 06:00 ferrous sulfate 325 mg (65 mg 325 mg PO QAM tab 04/13/19 08/15/19 Unknown iron) tablet,delayed release vit C 250 mg-E 200 unit-zinc 40 1 tab PO BID 04/13/19 08/15/19 Unknown mg-copper 1 ok-gblzxw-zhlmor capsule cephalexin 500 mg capsule 500 mg PO BID #60 cap 05/17/19 08/15/19 Unknown apixaban 5 mg tablet 5 mg PO BID #60 tab 06/19/19 08/15/19 Unknown atorvastatin 40 mg tablet 40 mg PO QPM #90 tab 06/19/19 08/15/19 Unknown donepezil 10 mg tablet 10 mg PO HS #90 tab 06/19/19 08/15/19 Unknown metformin 1,000 mg tablet 1,000 mg PO BID #180 tab 06/19/19 08/15/19 Unknown metoprolol tartrate 75 mg tablet 75 mg PO BID #180 tab 06/19/19 08/15/19 Unknown melatonin 5 mg tablet 5 mg PO HS PRN 07/18/19 08/15/19 Unknown polyethylene glycol 3350 17 8.5 gm PO DAILY PRN 07/18/19 08/15/19 Unknown gram/dose oral powder aspirin [Adult Low Dose Aspirin] 81 mg PO QAM 08/15/19 08/15/19 Unknown furosemide 40 mg PO QAM 08/15/19 08/15/19 Unknown pantoprazole 40 mg PO QAM 08/15/19 08/15/19 Unknown Past Medical History Medical History Atrial fibrillation (Chronic) on pradaxa--follows with Dr. Mattson PAD (peripheral artery disease) Hepatic abscess HX OF AND RESOLVED Gastric ulcer HX OF AND RESOLVED Hemorrhagic cerebrovascular accident (CVA) (Chronic) 01/22/2019 - WAS SEEN IN [facility] ER AND LIFEFLIGHTED TO [place]. HAS ALITTLE TROUBLE TO SPEACH AND DOING THERAPY CAD (coronary artery disease) (Chronic) Foot deformity (Chronic) RIGHT Anemia (Chronic) CHF (congestive heart failure) (Chronic) Diabetes mellitus, type 2 (Chronic) Diabetic peripheral neuropathy (Chronic) H/O diabetic foot ulcer (Chronic) RIGHT FOOT CURRENT ULCER Hyperlipidemia (Chronic) Hypertension (Chronic) Macular degeneration (Chronic) Myocardial Infarction (Chronic) 2001 Osteoarthritis (Chronic) Past Family History Family History Mother Family history of diabetes mellitus COPD (chronic obstructive pulmonary disease) Heart failure Brother Family history of diabetes mellitus Myocardial infarction Throat cancer Father Family history of diabetes mellitus Heart failure Grandmother (Maternal) Family history of diabetes mellitus Heart failure Cancer Grandfather (Paternal) Cardiac disorder Grandmother (Paternal) Leukemia Family/Other Heart disease Hypertension Past Surgical History Surgical History History of heart artery stent (Chronic) 2001 @ [facility]--2 LAD stents History of arthroscopy of left knee (Resolved) History of bilateral cataract extraction (Resolved) History of cardiac cath (Resolved) 2001 AND 2 STENTS -- FOLLOWS DR GU History of colonoscopy (Resolved) History of gastric bypass (Resolved) History of hand surgery (Resolved) on middle finger/pinky right hand History of tonsillectomy (Resolved) History of tooth extraction (Resolved) wisdom teeth/all upper teeth Status post right foot surgery (Resolved) REMOVAL OF BONES FROM RIGHT FOOT Social History Smoking Status: Former smoker tobacco type: cigarettes Do You Dip or Chew Tobacco: No Smoking End Date: 02/07/2002 Hx Alcohol Use: No Hx Substance Use: No substance use type: does not use Testing Electrocardiogram Date: 08/07/19 Findings: + AFIB @ (105 bpm)
--- NOTE | 2019-08-17 12:56 | History & Physical Report ---
Date of Service August 17, 2019 Assessment & Plan (1) Diabetic foot ulcer associated with type 2 diabetes mellitus: We will proceed with a below knee amputation of the right leg. He is already talked to [facility] and wants to be fitted for prosthesis. He will be kept overnight in the hospital. He will then likely be discharged to [facility]. He will follow-up with orthopedics in 2 weeks. Diabetic foot ulcer location: midfoot Laterality: right Non- pressure ulcer stage: with fat layer exposed Qualified Code(s): E11.621 - Type 2 diabetes mellitus with foot ulcer; L97.412 - Non-pressure chronic ulcer of right heel and midfoot with fat layer exposed Present on Admission?: Yes History of Present Illness Chief Complaint: Infected ulcers of the right foot Primary Care Provider: Lauren Raymond MD Leonard is a pleasant 64-year-old male who is had a 4-year history of wound complications with the right foot. He is a diabetic. Another provider did a bony resection of his foot. It took a long time for the wound to heal. He basically has no function of his right foot and ankle. He wears a large cam walker boot to ambulate. He has had a complete vascular work-up and does not have any significant peripheral vascular disease. When I saw him in the office we decided to proceed with an amputation in a couple of months to fit around his schedule. Unfortunately his symptoms quickly worsened. I saw him in the office this week and there was a significant infection of the ulcers on the plantar aspect of his foot. He has been on oral Keflex. His symptoms are truly worsening. We elected to proceed with a more urgent amputation of the right lower extremity. Allergies Allergy/AdvReac Type Severity Reaction Status Date / Time No Known Allergies Allergy Verified 08/15/19 12:08 Home Medications Home Medications Medication Instructions Recorded Confirmed Type multivitamin tablet 1 tab PO QAM 06/29/18 08/15/19 History ferrous sulfate 325 mg (65 mg 325 mg PO QAM tab 04/13/19 08/15/19 History iron) tablet,delayed release vit C 250 mg-E 200 unit-zinc 40 1 tab PO BID 04/13/19 08/15/19 History mg-copper 1 li-fjyjir-zmzjap capsule cephalexin 500 mg capsule 500 mg PO BID #60 cap 05/17/19 08/15/19 Rx apixaban 5 mg tablet 5 mg PO BID #60 tab 06/19/19 08/15/19 Rx atorvastatin 40 mg tablet 40 mg PO QPM #90 tab 06/19/19 08/15/19 Rx donepezil 10 mg tablet 10 mg PO HS #90 tab 06/19/19 08/15/19 Rx metformin 1,000 mg tablet 1,000 mg PO BID #180 tab 06/19/19 08/15/19 Rx metoprolol tartrate 75 mg tablet 75 mg PO BID #180 tab 06/19/19 08/15/19 Rx melatonin 5 mg tablet 5 mg PO HS PRN 07/18/19 08/15/19 History polyethylene glycol 3350 17 8.5 gm PO DAILY PRN 07/18/19 08/15/19 History gram/dose oral powder aspirin [Adult Low Dose Aspirin] 81 mg PO QAM 08/15/19 08/15/19 History furosemide 40 mg PO QAM 08/15/19 08/15/19 History pantoprazole 40 mg PO QAM 08/15/19 08/15/19 History Past Med/Surg History Medical History Atrial fibrillation (Chronic) on pradaxa--follows with Dr. Mattson PAD (peripheral artery disease) Hepatic abscess HX OF AND RESOLVED Gastric ulcer HX OF AND RESOLVED Hemorrhagic cerebrovascular accident (CVA) (Chronic) 01/22/2019 - WAS SEEN IN [facility] ER AND [facility] [place]. HAS ALITTLE TROUBLE TO SPEACH AND DOING THERAPY CAD (coronary artery disease) (Chronic) Foot deformity (Chronic) RIGHT Anemia (Chronic) CHF (congestive heart failure) (Chronic) Diabetes mellitus, type 2 (Chronic) Diabetic peripheral neuropathy (Chronic) H/O diabetic foot ulcer (Chronic) RIGHT FOOT CURRENT ULCER Hyperlipidemia (Chronic) Hypertension (Chronic) Macular degeneration (Chronic) Myocardial Infarction (Chronic) 2001 Osteoarthritis (Chronic) Surgical History History of heart artery stent (Chronic) 2001 @ [facility]--2 LAD stents History of arthroscopy of left knee (Resolved) History of bilateral cataract extraction (Resolved) History of cardiac cath (Resolved) 2001 AND 2 STENTS -- FOLLOWS DR GU History of colonoscopy (Resolved) History of gastric bypass (Resolved) History of hand surgery (Resolved) on middle finger/pinky right hand History of tonsillectomy (Resolved) History of tooth extraction (Resolved) wisdom teeth/all upper teeth Status post right foot surgery (Resolved) REMOVAL OF BONES FROM RIGHT FOOT Family History Mother Family history of diabetes mellitus COPD (chronic obstructive pulmonary disease) Heart failure Brother Family history of diabetes mellitus Myocardial infarction Throat cancer Father Family history of diabetes mellitus Heart failure Grandmother (Maternal) Family history of diabetes mellitus Heart failure Cancer Grandfather (Paternal) Cardiac disorder Grandmother (Paternal) Leukemia Family/Other Heart disease Hypertension Social History Preferred Language: Pashto Communication Ability: Effective Visual Impairment: No Limitations Hearing Ability: Normal Jig Builder Required: No Beliefs That Will Affect Care: None marital status: Current Living Situation: Spouse current occupational status: retired Other Information That Helps Us Care for You: No Feels Safe at Home: Yes Safety Concerns: Feels Safe At This Time Smoking Status: Former smoker Tobacco Type: cigarettes ; Do You Dip or Chew Tobacco: No ; Smoking End Date: 02/07/2002 ; Second Hand Exposure: No ; Tobacco Cessation Education Requested by Patient: No Hx Alcohol Use: No Hx Substance Use: No Dental Care, Regularly: Yes Physical Activity Frequency: Other Physical Activity Frequency Comment: Exercise limited by physical condition Seatbelt Use: always Review of Systems All systems reviewed & are unremarkable except as noted in HPI & below Physical Exam Musculoskeletal: On physical examination of the right leg, there is cellulitis is extending up to about the midshaft of the tibia. There are several infected nonhealing ulcers on the plantar aspect of his foot. They are actually dripping purulent discharge in the office. He has essentially no function of his foot or his ankle. His knee looks good. His skin quality looks good at the level of an amputation site.
[~2019-08-17 13:25] MED LIST changes: +ACETAMINOPHEN 500 MG TAB PO SCH; -ASPI1TAB83 PO; +CEFAZOLIN 1000MG 1,000 MG/7.5 ML SYR IV SCH; -CLIN150C15 PO; -DABI150C PO; -DILT120C68 PO; -FERR325T5 PO; -FRS/40 PO; -FURO-85 PO; -GABA-1218 PO; -LISI-729 PO; -LPR25 PO; +LR 15ML/HR IV SCH; +LR 60ML/HR IV SCH; -MAGN400T6 PO; -METF-384 PO; -MULT-190 PO; -MULT-506 PO; -NTRGSL/4 UT; -PRAV80TA2 PO; -TRAM-10 PO; -VITAMIN B12 SL; -WLLSR/150 PO
[2019-08-17 14:22] LABS: INR 1.1 (0.9-1.1); Partial Thromboplastin Time 26.1 Seconds (21.0-31.0); Prothrombin Time 11.3 Seconds (9.0-12.0)
[2019-08-17] MEDS ORDERED: MIDAZOLAM HCL 1 MG/ML 2ML VIAL ONE (14:58)
[2019-08-17] MEDS ORDERED: PROPOFOL IV EMULSION 10 MG/ML 20 ML VIAL IV ONE (14:58)
[2019-08-17] MEDS ORDERED: LIDOCAINE HCL 2% 2 ML VIAL/AMP(20MG/ML) INFIL ONE (14:58)
[2019-08-17] MEDS ORDERED: fentaNYL citrate 100 MCG/2 ML VIAL ONE ×2 (14:58→16:10)
[2019-08-17] MEDS ORDERED: ePHEDrine sulfate 50 MG/ML AMP IV PRN (15:18)
[2019-08-17] MEDS ORDERED: HYDROmorphone INJ 2 MG/ML SYR/VIAL IV PRN (15:18)
[2019-08-17] MEDS ORDERED: ONDANSETRON INJ 2 MG/ML 2 ML VIAL IV PRN ×2 (15:18→18:25)
[2019-08-17] MEDS ORDERED: fentaNYL citrate 100 MCG/2 ML VIAL IV PRN (15:18)
[2019-08-17] MEDS ORDERED: PROMETHAZINE HCL 6.25 MG in SODIUM CHLORIDE 0.9% 50 ML IV PRN (15:18)
[2019-08-17] MEDS ORDERED: ATROPINE SULFATE 0.1 MG/ML 10ML SYR IV PRN (15:18)
[2019-08-17] MEDS ORDERED: BUPIVACAINE/EPINEPHRINE 0.5% MPF 1:200,000 30 ML VIAL ONE (15:31)
[2019-08-17] MEDS ORDERED: ONDANSETRON INJ 2 MG/ML 2 ML VIAL ONE (15:44)
[2019-08-17] MEDS ORDERED: DEXAMETHASONE SOD INJ 4 MG/ML VIAL ONE (15:45)
--- NOTE | 2019-08-17 17:22 | Operative Report ---
Post Operative Report Pre & Post Diagnosis Operation Date: 08/17/19 07:30 <No data on this case meets the specified criteria> Operation Date: 08/17/19 07:30 Pre-Op Diagnosis: Non Healing Wounds Right Lower Extremity Post-Op Diagnosis: Non Healing Wounds Right Lower Extremity I identified the patient and participated in the time-out.: Yes Procedure Operation Date: 08/17/19 07:30 <No data on this case meets the specified criteria> Operation Date: 08/17/19 07:30 Actual Procedures p Right Below Knee Amputation(Right) - Neo Banerjee DO Surgeon Neo Banerjee DO Retaining Room Cutter Neo Seo PAC Estimated Blood Loss 100 Findings Consistent with Post-Op Diagnosis Specimens Right lower leg Complications none Disposition Disposition: Recovery Room Indications Leonard is a pleasant 64-year-old male who is been having a 4-year history of issues with his right leg. He has had nonhealing ulcers. He has had vascular consults which showed good vascular flow to his lower extremity however, he was unable to heal the ulcers. His foot and ankle became nonfunctional. After failing extensive conservative treatment, he elected to proceed with a right below-knee amputation. Description of Procedure On August 17, 2019 he arrived at [facility] for the above procedure. He was seen in the preoperative holding area and the operative extremity was identified and signed. He was given a preoperative antibiotic and taken back to the operating room. He was laid on the table in the supine position. He was put under general anesthesia. The right leg was prepped and draped in sterile fashion. A timeout was done. The patient and the operative extremity was properly identified. A large posterior flap technique was used. The anterior flap was started 12 cm distal to the joint line. This is where the good skin quality stopped. The anterior incision was taken down right to the periosteum. Periosteum was elevated off the bone. The anterior compartment was then transected. On the lateral side the anterior tibial artery was ligated with a silk suture. The superficial and deep peroneal nerves were pulled with traction and incised sharply so that they could retract up into the muscle bellies. The posterior flap was then incised with a sharp knife. Dissection was taken down through the muscle bellies. A oscillating saw was used to resect the tibia about 12 cm distal to the tibial tubercle. The fibula was then resected 1 cm proximal to the resection cut of the tibia. The edges of the tibia were then beveled. The leg was then removed preserving the posterior compartment of the leg down the length of the posterior flap. The posterior tibial artery was identified and tied. The tibial nerve was identified and transected so that it retracted into the muscle bellies. The muscle bellies of the posterior compartment were then beveled. Time was spent ensuring complete coverage when the posterior flap was brought up to meet the anterior flap. Once I was happy with the overall alignment, the tourniquet was deflated. Hemostasis was obtained. A [place] drain was placed. The surrounding soft tissues were injected with 30 cc of quarter percent Marcaine with epinephrine. There was bleeding throughout the case and bleeding when the tourniquet was deflated. However, the muscle bellies were white and very atrophied. The deep fascia from the posterior compartment was brought up to the deep fascia of the anterior compartment. #1 Vicryl sutures were used to sew these 2 together. This gave a nice coverage over the stump. The skin was then closed with 2-0 nylon suture in a simple fashion. The stump was then dressed with a soft dressing and a knee immobilizer. He was then extubated and transferred [facility] [place]. He was taken to the postanesthesia care unit in stable condition. He tolerated the procedure well. I attest to the content of the Intraoperative Record and any orders documented therein. Any exceptions are noted below.
--- NOTE | 2019-08-17 17:54 | Anesthesiology Progress Note ---
Date of Service August 17, 2019 Anesthesia Post Procedure Vital Signs Vital Signs: Temp Pulse Pulse Resp BP Pulse Ox 08/17/19 17:45 82 13 151/75 H 94 08/17/19 17:35 80 14 137/73 98 08/17/19 17:25 78 16 139/69 100 08/17/19 17:15 36.0 C L 77 12 136/77 99 08/17/19 14:04 36.7 C 77 20 116/73 97 Transfer of Care Handoff Completed per policy Notes Mental Status: alert / awake / arousable Patient Amnestic to Procedure: Yes Nausea / Vomiting: adequately controlled Pain: adequately controlled Airway Patency, RR, SpO2: stable & adequate BP & HR: stable & adequate Hydration State: stable & adequate Anesthetic Complications: no major complications apparent
[2019-08-17] MEDS ORDERED: POLYETHYLENE (MIRALAX) 17 GM PACK PO PRN (18:25)
[2019-08-17] MEDS ORDERED: ACETAMINOPHEN 1,000 MG/100 ML VIAL IV PRN (18:25)
[2019-08-17] MEDS ORDERED: MAGNESIUM HYDROXIDE SUSP 30 ML UDC PO PRN (18:25)
[2019-08-17] MEDS ORDERED: ALUMINUM/MAGNESIUM SUSP 30 ML UDC PO PRN (18:25)
[2019-08-17] MEDS ORDERED: NON-FORMULARY MEDICATION (Melatonin 5 MG) PO PRN (18:25)
[2019-08-17] MEDS: SODIUM CHLORIDE 0.9% 1000ML 1,000 ML IV SCH (18:38)
[2019-08-17] MEDS ORDERED: PHARMACY GLYCEMIC MGMT CONSULT PRN (19:18)
[2019-08-17] MEDS ORDERED: DEXTROSE 50% 50 ML SYRINGE IV PRN (19:45)
[2019-08-17] MEDS ORDERED: GLUCOSE 40% GEL 15 GM TUBE PO PRN (19:45)
[2019-08-17] MEDS ORDERED: GLUCAGON FOR INJ 1 MG VIAL IM PRN (19:45)
[2019-08-17] MEDS ORDERED: GLUCOSE 10 TABS/TUBE PO PRN (19:45)
[2019-08-17] MEDS ORDERED: CARBOHYDRATES FOR HYPOGLYCEMIA PO PRN (19:45)
[2019-08-17] MEDS: OXYCODONE HCL IR 5 MG TAB (IMMEDIATE RELEASE) PO PRN (20:00)
[2019-08-17] MEDS: DONEPEZIL HCL 10 MG TAB PO SCH (20:44)
[2019-08-17] MEDS: METOPROLOL TARTRATE 25 MG TAB PO SCH (20:45)
[2019-08-17] MEDS: DOCUSATE SODIUM 100 MG CAP PO SCH (20:45)
[2019-08-17] MEDS: APIXABAN 5 MG TABLET PO SCH (20:45)
[2019-08-17] MEDS: ASPIRIN 81 MG ECTAB PO SCH (20:45)
[2019-08-17] MEDS: ATORVASTATIN 40 MG TAB PO SCH (20:45)
[2019-08-17] MEDS: INSULIN ASPART 100 UNITS/ML 3 ML PEN SC SCH (20:51)
[2019-08-17] MEDS ORDERED: INSULIN GLARGINE SOLOSTAR 100 UNITS/ML 3 ML PEN SC ONE (21:00)
[2019-08-17] MEDS: CEFAZOLIN 2000MG 2,000 MG/15 ML SYR IV SCH (21:58)
[2019-08-17] MEDS ORDERED: PNEUMOCOCCAL POLYSACCHARIDES 25 MCG/0.5 ML VIAL/SYR IM ONE (22:00)
[2019-08-17] MEDS ORDERED: PNEUMOCOCCAL ADMINISTRATION CHARGE ONE (22:00)
[2019-08-18] MEDS: OXYCODONE HCL IR 5 MG TAB (IMMEDIATE RELEASE) PO PRN ×4 (00:12→20:49)
[2019-08-18] MEDS: INSULIN ASPART 100 UNITS/ML 3 ML PEN SC SCH ×6 (00:30→21:25)
[2019-08-18] MEDS: CEFAZOLIN 2000MG 2,000 MG/15 ML SYR IV SCH ×2 (06:25→14:37)
[2019-08-18] MEDS: SODIUM CHLORIDE 0.9% 1000ML 1,000 ML IV SCH ×2 (07:35→18:22)
--- NOTE | 2019-08-18 07:53 | Anesthesiology Progress Note ---
Date of Service August 18, 2019 Anesthesia Post Procedure Vital Signs Vital Signs: Temp Pulse Pulse Resp BP Pulse Ox 08/18/19 03:33 36.7 C 65 17 109/68 94 08/17/19 23:33 36.9 C 72 18 100/67 96 08/17/19 20:53 36.9 C 86 18 114/72 94 08/17/19 20:30 36.6 C 94 H 16 118/78 94 08/17/19 19:26 36.7 C 90 18 135/88 98 08/17/19 19:00 36.8 C 85 16 118/66 93 08/17/19 18:30 36.3 C L 74 16 126/82 93 08/17/19 18:15 84 20 137/68 93 08/17/19 18:05 78 17 133/74 93 08/17/19 17:55 36.3 C L 75 18 142/76 H 94 08/17/19 17:45 82 13 151/75 H 94 08/17/19 17:35 80 14 137/73 98 08/17/19 17:25 78 16 139/69 100 08/17/19 17:15 36.0 C L 77 12 136/77 99 08/17/19 14:04 36.7 C 77 20 116/73 97 Notes Mental Status: alert / awake / arousable and participated in evaluation Nausea / Vomiting: adequately controlled Pain: adequately controlled Airway Patency, RR, SpO2: stable & adequate BP & HR: stable & adequate Hydration State: stable & adequate
[2019-08-18] MEDS: PANTOprazole 40 MG TAB PO SCH (08:59)
[2019-08-18] MEDS: FERROUS SULFATE 325 MG TAB PO SCH (08:59)
[2019-08-18] MEDS: ASPIRIN 81 MG ECTAB PO SCH ×2 (08:59→20:50)
[2019-08-18] MEDS: APIXABAN 5 MG TABLET PO SCH ×2 (08:59→20:52)
[2019-08-18] MEDS ORDERED: MULTIVITAMIN TAB PO SCH (09:00)
[2019-08-18] MEDS: METOPROLOL TARTRATE 25 MG TAB PO SCH ×2 (09:00→20:50)
[2019-08-18] MEDS: FUROSEMIDE 40 MG TAB PO SCH (09:00)
[2019-08-18] MEDS: DOCUSATE SODIUM 100 MG CAP PO SCH ×2 (09:00→20:50)
[2019-08-18] MEDS ORDERED: ASPIRIN 81 MG ECTAB PO SCH (09:00)
[2019-08-18] MEDS: CEROVITE ADV FORMULA TAB PO SCH (09:01)
[2019-08-18] MEDS ORDERED: INSULIN GLARGINE SOLOSTAR 100 UNITS/ML 3 ML PEN SC ONE (09:15)
--- NOTE | 2019-08-18 09:25 | Pharmacy Report ---
Glycemic Control Consultation - Date of Service August 18, 2019 - Scope Scope: Glycemic Pharmacist consulted by Neo Wong PA-C on 08/17/19 for glycemic control and to write orders per [facility] inpatient glycemic control protocol - Objective Weight: 81.193 kg Accuchecks BSG (last 24hrs): 08/17/19 08/17/19 08/17/19 13:54 17:20 20:45 POC Glucose 140 H 143 H 249 H 08/17/19 08/18/19 08/18/19 23:55 03:33 08:23 POC Glucose 201 H 141 H 228 H - Recent Pertinent Medications Outpatient Anti-diabetic Regimen: * Metformin 1g PO BID * A1c = 6.3 % 07/18/19 The patient is currently receiving: * Basal insulin: Lantus 14 units x 1 dose last night * Correctional Insulin: Novolog Correction per scale ACHS Goal Range: Low 110 mg/dL - High 140 mg/dL Correction Factor: 30 mg/dL/unit * Prandial insulin: Per carb ratio of 1 unit per 10 grams CHO consumed * Oral Agents: on hold Risk Factors for Insulin Resistance: * Steroids: Dexamethasone 4mg IV x 1 yesterday * Recent Surgery: POD 1 R BKA * Diet: Type 2 DM - Assessment & Plan Assessment & Plan: ASSESSMENT: * 64 year old POD 1 right BKA, type 2 diabetic with good outpatient control on only metformin as outpatient. * Pt is maintained on oral antidiabetic agents as an outpatient * Oral agents are not recommended for inpatient use d/t drug interactions, changing PO intake, and difficulty titrating for acute hyper/hypoglycemia. ADA recommends re-initiating outpatient oral agents 1-2 days prior to discharge if/when appropriate if they were held on admission. * Holding oral agents for admission and utilizing SQ basal bolus insulin regimen which is the recommended regimen for inpatient glycemic control. * Initiated weight based insulin dosing for insulin pritesh patient last night * Patient blood sugar 228mg/dl this morning - will give an additional dose of Lantus and tighten CF and CR at this time while steroid effects are still wearing off, then loosen as effects wear off and blood sugars improve. * ADA & AACE recommend a goal blood sugar range 140-180 mg/dl for the majority of critically ill & non-critically ill patients. However, more stringent targets may be selected in individual cases. Will utilize more stringent goal of 110-140mg/dl based on patient age & comorbidities. Additionally, tighter glycemic control is warranted to facilitate wound/infection healing. PLAN FOR INPATIENT GLYCEMIC CONTROL: * Holding outpatient oral diabetes medications - may restart tomorrow as long as renal function and PO intake are good * Basal insulin * Lantus 15 units SQ x 1 dose this morning to cover continued steroid effects * Bolus insulin * NovoLog per scale ACHS or Q6hrs while NPO * Goal Range: Low 110 mg/dL - High 140 mg/dL * tighten: Correction Factor: 20 mg/dL/unit * tighten: Nutritional / Prandial insulin per carb ratio of 1 unit per 7 grams CHO consumed * Please note that the plan above was derived based on current level of insulin resistance and hospital stress. These recommendations are appropriate for inpatient admission only. Plan of care upon discharge will need to be reassessed to avoid potential outpatient hypo/hyperglycemia. Thank you.
[2019-08-18] MEDS: HYDROmorphone INJ 0.5 MG/0.5 ML SYR IV PRN ×3 (12:38→23:38)
--- NOTE | 2019-08-18 15:04 | Orthopedic Progress Note ---
Date of Service August 18, 2019 Assessment & Plan (1) Status post bilateral below knee amputation: Overall is doing very well. Is not having much pain in the right stump. He will be seen by physical therapy again tomorrow for ambulation and learning activities of daily living. I plan to [facility]. I will likely change the dressing Wednesday morning and pull the drain before he is discharged. Present on Admission?: Yes Subjective Leonard was seen and examined at bedside today. Overall he is doing very well. Is not having much pain in his right leg. He is in good spirits. He has no complaints. Physical Exam Musculoskeletal: On physical examination of the right leg, he is wearing the knee immobilizer as directed. The dressing is clean and dry and there is no signs of drainage. Results & Data Vital Signs (Past 12 Hours) Vital Signs Temp Pulse Resp BP Pulse Ox 08/18/19 10:55 37.0 C 66 16 110/67 95 08/18/19 07:10 36.7 C 95 H 16 109/69 92 08/18/19 03:33 36.7 C 65 17 109/68 94 PG Care Time/CCT Total # of Minutes Spent Total Time Spent with Patient: Total time spent is greater than 50% in coordination of care (as documented) at patient's floor/unit and/or counseling patient:
[2019-08-18] MEDS: ATORVASTATIN 40 MG TAB PO SCH (20:50)
[2019-08-18] MEDS: DONEPEZIL HCL 10 MG TAB PO SCH (20:50)
[2019-08-19] MEDS: SODIUM CHLORIDE 0.9% 1000ML 1,000 ML IV SCH ×2 (06:23→18:29)
[2019-08-19 07:54] LABS: Creatinine Clr Calc Pharmacy 115.6 ml/min; Est GFR (African American) 118.3; Est GFR (Non-African American) 102.1
[2019-08-19] MEDS: METOPROLOL TARTRATE 25 MG TAB PO SCH ×2 (09:00→21:09)
[2019-08-19] MEDS: ASPIRIN 81 MG ECTAB PO SCH ×3 (09:01→22:05)
[2019-08-19] MEDS: FUROSEMIDE 40 MG TAB PO SCH (09:01)
[2019-08-19] MEDS: FERROUS SULFATE 325 MG TAB PO SCH (09:01)
[2019-08-19] MEDS: CEROVITE ADV FORMULA TAB PO SCH (09:01)
[2019-08-19] MEDS: DOCUSATE SODIUM 100 MG CAP PO SCH ×2 (09:01→21:08)
[2019-08-19] MEDS: PANTOprazole 40 MG TAB PO SCH (09:01)
[2019-08-19] MEDS: METFORMIN HCL 500 MG TAB PO SCH ×2 (09:14→17:39)
[2019-08-19] MEDS: OXYCODONE HCL IR 5 MG TAB (IMMEDIATE RELEASE) PO PRN ×4 (09:20→22:05)
--- NOTE | 2019-08-19 09:25 | Orthopedic Progress Note ---
Date of Service August 19, 2019 Assessment & Plan (1) Status post bilateral below knee amputation: Overall he is doing very well. We will keep him in the hospital today for some more physical therapy and pain control. He plans to be discharged to [facility] tomorrow. We will change the dressing again tomorrow to make sure it looks okay. Present on Admission?: Yes Subjective Leonard was seen and examined at bedside today. Overall he is doing fairly well. Is not having much pain in the right leg. He has been able to participate with physical therapy. He has no complaints. Physical Exam Musculoskeletal: On physical examination of the right stump, the incision is clean and dry. The drain was removed. There was not much bleeding. The tissue quality looks good. I do not see any signs of necrosis. Results & Data Vital Signs (Past 12 Hours) Vital Signs Temp Pulse Pulse Resp BP Pulse Ox 08/19/19 08:00 37.1 C 99 H 20 159/77 H 92 08/18/19 23:29 36.9 C 75 17 147/77 H 95 PG Care Time/CCT Total # of Minutes Spent Total Time Spent with Patient: Total time spent is greater than 50% in coordination of care (as documented) at patient's floor/unit and/or counseling patient:
[2019-08-19] MEDS: INSULIN ASPART 100 UNITS/ML 3 ML PEN SC SCH ×4 (09:26→21:11)
[2019-08-19] MEDS: APIXABAN 5 MG TABLET PO SCH ×2 (09:54→21:08)
[2019-08-19] MEDS: ATORVASTATIN 40 MG TAB PO SCH ×2 (21:08→22:05)
[2019-08-19] MEDS: DONEPEZIL HCL 10 MG TAB PO SCH (21:14)
[2019-08-20 07:02] LABS: Creatinine Clr Calc Pharmacy 144.5 ml/min; Est GFR (African American) 129.7; Est GFR (Non-African American) 111.9
--- NOTE | 2019-08-20 08:31 | Orthopedic Progress Note ---
Date of Service August 20, 2019 Assessment & Plan (1) Status post bilateral below knee amputation: Overall is doing fairly well. Is not having much pain in the right stump. The stump looks good on examination. We will do daily dry dressing changes. [facility]. He is already scheduled to meet with the squeezer operator over there. He can continue the Eliquis. He will follow-up with orthopedics in 2 weeks for suture removal. Present on Admission?: Yes Subjective Leonard was seen and examined at bedside this morning. Overall he is doing fairly well. Is not having much pain in his right leg. He is happy with his progress so far. He has no complaints. Physical Exam Musculoskeletal: On physical examination of the right stump, the dressing was changed. The incision looks good. The posterior flap is warm to touch. He does have some capillary refill. There is no bloody drainage. No signs of infection. Results & Data Vital Signs (Past 12 Hours) Vital Signs Temp Pulse Pulse Resp BP BP Pulse Ox 08/20/19 08:00 36.6 C 95 H 18 127/72 91 08/19/19 23:31 36.8 C 79 18 117/75 91 08/19/19 21:14 87 119/73 PG Care Time/CCT Total # of Minutes Spent Total Time Spent with Patient: Total time spent is greater than 50% in coordination of care (as documented) at patient's floor/unit and/or counseling patient:
--- NOTE | 2019-08-20 08:34 | Discharge Summary ---
Date of Service August 20, 2019 Admission HPI Per Admitting Provider Leonard is a pleasant 64-year-old male who is had a 4-year history of wound complications with the right foot. He is a diabetic. Another provider did a bony resection of his foot. It took a long time for the wound to heal. He basically has no function of his right foot and ankle. He wears a large cam walker boot to ambulate. He has had a complete vascular work-up and does not have any significant peripheral vascular disease. When I saw him in the office we decided to proceed with an amputation in a couple of months to fit around his schedule. Unfortunately his symptoms quickly worsened. I saw him in the office this week and there was a significant infection of the ulcers on the plantar aspect of his foot. He has been on oral Keflex. His symptoms are truly worsening. We elected to proceed with a more urgent amputation of the right lower extremity. Principal Diagnosis Right below-knee amputation Discharge Data Allergies Allergy/AdvReac Type Severity Reaction Status Date / Time No Known Allergies Allergy Verified 08/17/19 13:52 Procedures Performed Operation Date: 08/17/19 07:30 <No data on this case meets the specified criteria> Operation Date: 08/17/19 07:30 Actual Procedures p Right Below Knee Amputation(Right) - Neo Banerjee, Hospital Course (1) Status post bilateral below knee amputation: On August 17, 2019 Leonard arrived at [facility] and underwent a right below-knee amputation without complication. Postoperatively he was started back on his Eliquis and placed in a knee immobilizer. He was discharged to general orthopedic floors. His hospital course is uneventful. On postop day #1 his H&H was stable and his pain was well controlled. He met with physical therapy. He met with case management and elected to go to [facility] where he will meet with filler shredding machine loader. On postop day #2 the dressing was changed and drain was pulled. The stump looked good. There appeared to be some vascular supply to the posterior flap. On postop day #3 he continued to do well. The dressing was changed once again. The stump looked good. He was then discharged to [facility] with the above instructions. He will follow-up with orthopedics in 2 weeks. Total Time Total Time Spent Total Time Spent (In Minutes): 20 Discharge Plan Discharge Items Patient Disposition: Transfer Inpatient Rehab Fac Reason For Visit: Non Healing Wounds Right Lower Extremity Discharge Diagnosis: Right below-knee amputation Activity: As commented below Non-emergency contact: Surgeon Call non-emergency contact if: your wound has increased redness and your wound has increased drainage Follow-up/Referrals: Lauren Raymond MD [Primary Care Provider] - Diet: Regular Addtl Attending Provider Instructions: Daily dry dressing changes to the right stump Leave knee immobilizer in place at all times except when being evaluated by the filler shredding machine loader Follow-up with Dr. Banerjee in 2 - 3 weeks for suture removal Call the office of Dr. Banerjee with any questions or concerns. [phone] Pending Studies at Discharge: No Stand-Alone Forms: My [facility] [employer] Skilled Items Patient informed of condition?: Yes DNR: No Discharge Level of Care: Acute rehab Communicable Disease: No Discharge Prognosis: Improving Lines: None Urinary Catheter: No Medications and DC Order Prescriptions: New oxycodone 5 mg capsule 5 mg PO Q6H PRN (Reason: pain) Qty: 30 RF: 0 Continued cephalexin [Keflex] 500 mg capsule 500 mg PO BID Qty: 60 RF: 4 multivitamin tablet 1 tab PO QAM RF: 0 ferrous sulfate 325 mg (65 mg iron) tablet,delayed release (DR/EC) 325 mg PO QAM RF: 0 PreserVision AREDS-2 [phone] st-xxbz-cf-mg capsule 1 tab PO BID RF: 0 atorvastatin 40 mg tablet 40 mg PO QPM Qty: 90 RF: 1 metformin 1,000 mg tablet 1,000 mg PO BID Qty: 180 RF: 1 metoprolol tartrate 75 mg tablet 75 mg PO BID Qty: 180 RF: 1 donepezil 10 mg tablet 10 mg PO HS Qty: 90 RF: 1 Eliquis 5 mg tablet 5 mg PO BID Qty: 60 RF: 3 melatonin 5 mg tablet 5 mg PO HS PRN (Reason: Sleep) RF: 0 polyethylene glycol 3350 [Miralax] 17 gram/dose powder 8.5 gm PO DAILY PRN (Reason: Constipation) RF: 0 furosemide 40 mg tablet 40 mg PO QAM RF: 0 aspirin [Adult Low Dose Aspirin] 81 mg tablet,delayed release (DR/EC) 81 mg PO QAM RF: 0 pantoprazole 40 mg tablet,delayed release (DR/EC) 40 mg PO QAM RF: 0 Discharge Orders: Discharge Order (Routine); Ordered 08/20/19 Ordered By: Neo Banerjee Admission Data Admit Date/Time: 08/17/19 17:20 Attending Provider: Noe Banerjee Admit Provider: Neo Banerjee Primary Care Provider: Lauren Raymond V. Other Providers: [facility]
[2019-08-20] MEDS: METFORMIN HCL 500 MG TAB PO SCH (09:45)
[2019-08-20] MEDS: INSULIN ASPART 100 UNITS/ML 3 ML PEN SC SCH (09:46)
[2019-08-20] MEDS: METOPROLOL TARTRATE 25 MG TAB PO SCH (09:48)
[2019-08-20] MEDS: CEROVITE ADV FORMULA TAB PO SCH (09:48)
[2019-08-20] MEDS: ASPIRIN 81 MG ECTAB PO SCH (09:48)
[2019-08-20] MEDS: PANTOprazole 40 MG TAB PO SCH (09:48)
[2019-08-20] MEDS: FUROSEMIDE 40 MG TAB PO SCH (09:49)
[2019-08-20] MEDS: DOCUSATE SODIUM 100 MG CAP PO SCH (09:49)
[2019-08-20] MEDS: FERROUS SULFATE 325 MG TAB PO SCH (09:49)
[2019-08-20] MEDS: APIXABAN 5 MG TABLET PO SCH (09:49)
== END 2019-08-20 11:23 | DRG 617 ==
LOC: ASU 13:25 → 3W 17:20

== ENCOUNTER 2019-08-24 02:07 | Inpatient (IN) ==
[2019-08-24] MEDS ORDERED: SODIUM CHLORIDE 0.9% 1000ML 1,000 ML IV SCH ×2 (02:45→07:01)
[2019-08-24 02:52] LABS: Basophils # (auto) 0.02 K/uL (0-0.2); Basophils % (auto) 0.3 %; Eosinophils % (auto) 2.6 %; Immature Granulocytes # (auto) 0.02 K/uL (0.00-0.02); Immature Granulocytes % (auto) 0.3 %; Lymphocytes # (auto) 1.26 K/uL (1.2-3.4); Lymphocytes % (auto) 16.6 %; Mean Corpuscular Hemoglobin 28.7 pg (25-34); Mean Corpuscular Hgb Conc 32.4 g/dL (32-36); Mean Corpuscular Volume 88.5 fL (80-100); Mean Platelet Volume 9.8 fL (7.4-10.4); Monocytes # (auto) 0.55 K/uL (0.11-0.59); Monocytes % (auto) 7.3 %; Neutrophils # (auto) 5.53 K/uL (1.4-6.5); Neutrophils % (auto) 72.9 %; Platelet Count 248 K/uL (130-400); RDW Coefficient of Variation 13.6 % (11.5-14.5); RDW Standard Deviation 43.8 fL (36.4-46.3); Red Blood Count 4.18 M/uL (4.7-6.1); White Blood Count 7.58 K/uL (4.8-10.8)
[2019-08-24 03:01] LABS: Albumin Level 3.4 gm/dl (3.4-5.0); BUN Creatinine Ratio 23.7 (10-20); Calcium 9.3 mg/dl (8.5-10.1); Creatinine Clr Calc Pharmacy 83.1 ml/min; Est GFR (Non-African American) 91.4; Magnesium 1.7 mg/dl (1.8-2.4); Potassium 3.7 mmol/L (3.5-5.1)
[2019-08-24 03:04] LABS: Albumin Globulin Ratio 0.8 (0.9-2); Bilirubin,Total 0.7 mg/dl (0.2-1); Globulin 4.3 gm/dl (2.5-4.0); Total Protein 7.7 gm/dl (6.4-8.2)
[2019-08-24] MEDS ORDERED: METOPROLOL TARTRATE 1 MG/ML VIAL IV STA (03:19)
[2019-08-24 03:37] LABS: INR 1.2 (0.9-1.1); Prothrombin Time 11.9 Seconds (9.0-12.0)
[2019-08-24 04:52] LABS: Appearance Urine Cloudy (Clear); Bacteria Urine Automated Negative (Negative); Bilirubin Urine Negative (Negative); Blood Urine Negative (Negative); Color Urine Yellow; Glucose Urine UA Negative (Negative); Ketones Urine 1+ (Negative); Leukocyte Esterase Urine Negative (Negative); Nitrite Urine Negative (Negative); Protein Urine 1+ (Negative); RBC Urine Automated 0-4 /hpf (0-4); Urobilinogen Urine Negative (Negative); pH Urine 5.5 (4.5-7.5)
[2019-08-24 05:13] LABS: Calcium Oxalate Crystals Urine Present (None Prsent)
--- NOTE | 2019-08-24 05:53 | History & Physical Report ---
Date of Service August 24, 2019 Assessment & Plan (1) New onset seizure: Patient with encephalomalacia noted on CT, prior stroke which can certainly serve as a seizure focus. Electrolytes are within normal limits. Patient denies alcohol or benzodiazepine use. -Admit to medical floor telemetry -Seizure precautions -Check MRI brain -Check EEG -Optimize electrolytes Present on Admission?: Yes (2) Atrial fibrillation with RVR: Presently rate controlled at 89 bpm -Continue apixaban for anticoagulation -Continue metoprolol 75 mg p.o. twice daily for rate control -Telemetry monitoring Present on Admission?: Yes (3) History of stroke: Patient with history of prior hemorrhagic stroke. Has baseline dysphasia and mild right upper extremity weakness per note from senior care. No family at bedside at present to confirm patient's baseline functional status. -MRI brain as above -Continue aspirin and atorvastatin -Continue Aricept for memory Present on Admission?: Yes (4) Status post bilateral below knee amputation: Patient seems to be doing well postoperatively. No bleeding/drainage/evidence of infection -Percocet as needed for pain control -Dressing changes as needed Present on Admission?: Yes (5) GERD (gastroesophageal reflux disease): Chronic. Stable. -Continue Protonix Present on Admission?: Yes (6) Chronic diastolic (congestive) heart failure: Patient appears to be well compensated at present. No respiratory distress or evidence of volume overload -Continue metoprolol, Lasix Present on Admission?: Yes (7) CAD (coronary artery disease): Patient denies chest pain. No EKG evidence of ischemia -Continue aspirin, atorvastatin, metoprolol Present on Admission?: Yes (8) Hypertension: Blood pressure stable. -Continue metoprolol, Lasix -Continue to monitor Present on Admission?: Yes (9) Diabetes mellitus type 2, controlled: Blood sugar presently 152 -Hold metformin while inpatient -Lantus 5 units twice daily with insulin sliding scale Present on Admission?: Yes (10) Hypercholesterolemia: Chronic. Stable. -Continue statin FEN: Normal saline, monitor electrolytes and replete as needed, magnesium x1 g to be given, n.p.o. for now Prophylaxis: Continue apixaban. Continue Protonix Code: Full code per notes from [facility] Disposition: Admit to medical floor History of Present Illness Chief Complaint: Seizure Primary Care Provider: Lauren Gaston MD male with multiple medical problems to include A. fib on anticoagulation, peripheral arterial disease, CAD, hypertension, hyperlipidemia, diabetes, peripheral arterial disease status post right BKA. Patient with history of prior stroke with some mild right-sided weakness and aphasia at baseline. He has a long-standing history of nonhealing diabetic wounds of the right lower extremity he had BKA performed on 08/17/2019. Surgery went well with no complications identified. Patient was discharged to [facility] in stable condition on 08/20/2019. He returns to the hospital today after a witnessed grand mal seizure lasting approximately 2 minutes. Patient is unable to provide much information. Does not recall the events that brought him to the ER. He does deny pain, headache, visual change. Denies chest pain, palpitations, shortness of breath, dizziness. Denies numbness/weakness, nausea/vomiting/diarrhea/constipation. No additional complaints at this time. ER course: Metoprolol 5 mg IV, normal saline x1 L Allergies Allergy/AdvReac Type Severity Reaction Status Date / Time No Known Allergies Allergy Verified 08/24/19 02:40 Home Medications Home Medications Medication Instructions Recorded Confirmed Type ferrous sulfate 325 mg (65 mg 325 mg PO QAM tab 04/13/19 08/24/19 History iron) tablet,delayed release vit C 250 mg-E 200 unit-zinc 40 1 tab PO BID 04/13/19 08/24/19 History mg-copper 1 [id number] capsule apixaban 5 mg tablet 5 mg PO BID #60 tab 06/19/19 08/24/19 Rx donepezil 10 mg tablet 10 mg PO HS #90 tab 06/19/19 08/24/19 Rx metformin 1,000 mg tablet 1,000 mg PO BID #180 tab 06/19/19 08/24/19 Rx metoprolol tartrate 75 mg tablet 75 mg PO BID #180 tab 06/19/19 08/24/19 Rx polyethylene glycol 3350 17 17 gm PO DAILY PRN 07/18/19 08/24/19 History gram/dose oral powder aspirin [Adult Low Dose Aspirin] 81 mg PO QAM 08/15/19 08/24/19 History furosemide 40 mg PO QAM 08/15/19 08/24/19 History pantoprazole 40 mg PO QAM 08/15/19 08/24/19 History acetaminophen [Tylenol] 650 mg PO Q4H PRN 08/24/19 08/24/19 History atorvastatin 40 mg PO HS 08/24/19 08/24/19 History docusate sodium 100 mg PO BID 08/24/19 08/24/19 History insulin aspart U-100 [Novolog 1 sliding scale dose SUBCUT ACHS 08/24/19 08/24/19 History U-100 Insulin aspart] melatonin 3 mg PO HS PRN 08/24/19 08/24/19 History multivitamin with minerals 1 tab PO DAILY 08/24/19 08/24/19 History oxycodone 5 mg PO Q6H PRN 08/24/19 08/24/19 History potassium chloride 10 meq PO BID 08/24/19 08/24/19 History Past Med/Surg History Medical History Atrial fibrillation (Chronic) on pradaxa--follows with Dr. Mattson PAD (peripheral artery disease) Hepatic abscess HX OF AND RESOLVED Gastric ulcer HX OF AND RESOLVED Hemorrhagic cerebrovascular accident (CVA) (Chronic) 01/22/2019 - WAS SEEN IN [facility] AND [facility]. HAS ALITTLE TROUBLE TO SPEACH AND DOING THERAPY CAD (coronary artery disease) (Chronic) Foot deformity (Chronic) RIGHT Anemia (Chronic) CHF (congestive heart failure) (Chronic) Diabetes mellitus, type 2 (Chronic) Diabetic peripheral neuropathy (Chronic) H/O diabetic foot ulcer (Chronic) RIGHT FOOT CURRENT ULCER Hyperlipidemia (Chronic) Hypertension (Chronic) Macular degeneration (Chronic) Myocardial Infarction (Chronic) 2001 Osteoarthritis (Chronic) Surgical History History of heart artery stent (Chronic) 2001 @ [facility]--2 LAD stents History of arthroscopy of left knee (Resolved) History of bilateral cataract extraction (Resolved) History of cardiac cath (Resolved) 2001 AND 2 STENTS -- FOLLOWS DR GU History of colonoscopy (Resolved) History of gastric bypass (Resolved) History of hand surgery (Resolved) on middle finger/pinky right hand History of tonsillectomy (Resolved) History of tooth extraction (Resolved) wisdom teeth/all upper teeth Status post right foot surgery (Resolved) REMOVAL OF BONES FROM RIGHT FOOT Family History Mother Family history of diabetes mellitus COPD (chronic obstructive pulmonary disease) Heart failure Brother Family history of diabetes mellitus Myocardial infarction Throat cancer Father Family history of diabetes mellitus Heart failure Grandmother (Maternal) Family history of diabetes mellitus Heart failure Cancer Grandfather (Paternal) Cardiac disorder Grandmother (Paternal) Leukemia Family/Other Heart disease Hypertension Social History Preferred Language: Latvian Communication Ability: Effective Visual Impairment: No Limitations Hearing Ability: Normal 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 Beliefs That Will Affect Care: None marital status: Current Living Situation: Spouse current occupational status: retired Feels Safe at Home: Yes Smoking Status: Never smoker Tobacco Type: cigarettes ; Second Hand Exposure: No ; Hx Alcohol Use: No Hx Substance Use: No Dental Care, Regularly: Yes Physical Activity Frequency: Other Physical Activity Frequency Comment: Exercise limited by physical condition Seatbelt Use: always Review of Systems Review of Systems: All systems reviewed & are unremarkable except as noted in HPI & below Physical Exam Physical Exam: General: patient resting comfortably, NAD, has some difficulty answering questions, some expressive aphasia Skin: warm, dry, intact, no rashes or lesions, right lower extremity dressing in place, no bleeding or drainage HEENT: NC/AT, PERRL, anicteric sclera, conjunctiva without injection, external ear normal to inspection and nontender, nares patent, dry mucus membranes, poor dentition, no oropharyngeal lesions, neck supple, trachea midline, no LAD, no thyromegaly, no JVD Heart: +S1/S2, regular, no m/r/g Lungs: equal air entry bilaterally, no rales/rhonchi/wheezes Abd: +BS, soft, NT/ND, no masses/organomegaly/ascites Ext: Status post right BKA Neuro: Patient does not answer questions appropriately, unable to state name, location or date. Has mild right upper extremity weakness. No facial droop, moving all extremities on command Results & Data Vital Signs (Past 12 Hours) Vital Signs Temp Pulse Resp BP Pulse Ox 08/24/19 05:00 89 18 135/74 97 08/24/19 04:30 88 20 135/66 97 08/24/19 04:00 90 19 128/68 96 08/24/19 03:30 88 18 100/58 L 96 08/24/19 03:24 95 H 126/72 08/24/19 03:04 118 H 16 126/72 94 08/24/19 02:30 108 H 9 L 120/61 93 08/24/19 02:07 36.7 C 116 H 14 121/61 88 L Laboratory Results Lab Results 08/24/19 08/24/19 08/24/19 Range/Units 02:00 02:00 03:13 WBC 7.58 (4.8-10.8) K/uL RBC 4.18 L (4.7-6.1) M/uL Hgb 12.0 L (14.0-18.0) g/dL Hct 37.0 L (42-52) % MCV 88.5 (80-100) fL MCH 28.7 (25-34) pg MCHC 32.4 (32-36) g/dL RDW Std Deviation 43.8 (36.4-46.3) fL RDW Coeff of [place] 13.6 (11.5-14.5) % Plt Count 248 (130-400) K/uL MPV 9.8 (7.4-10.4) fL Immature Gran % (Auto) 0.3 % Neut % (Auto) 72.9 % Lymph % (Auto) 16.6 % Burke % (Auto) 7.3 % Eos % (Auto) 2.6 % Baso % (Auto) 0.3 % Immature Gran # (Auto) 0.02 (0.00-0.02) K/uL Neut # (Auto) 5.53 (1.4-6.5) K/uL Lymph # (Auto) 1.26 (1.2-3.4) K/uL Burke # (Auto) 0.55 (0.11-0.59) K/uL Eos # (Auto) 0.20 (0-0.5) K/uL Baso # (Auto) 0.02 (0-0.2) K/uL PT (9.0-12.0) Seconds INR (0.9-1.1) Sodium 139 (136-145) mmol/L Potassium 3.7 (3.5-5.1) mmol/L Chloride 103 (98-107) mmol/L Carbon Dioxide 23 (21-32) mmol/L Anion Gap 13.0 H (3-11) BUN 20 H (7-18) mg/dl Creatinine 0.85 (0.6-1.4) mg/dl Est Cr Clr Drug Dosing 83.1 ml/min Est GFR ( Amer) 106.0 Est GFR (Non-Af Amer) 91.4 BUN/Creatinine Ratio 23.7 H (10-20) Glucose 152 H (70-99) mg/dl Lactate 1.2 (0.4-2.0) mmol/L Calcium 9.3 (8.5-10.1) mg/dl Magnesium 1.7 L (1.8-2.4) mg/dl Total Bilirubin 0.7 (0.2-1) mg/dl AST 15 (15-37) U/L ALT 16 (12-78) U/L Alkaline Phosphatase 106 (45-117) U/L Total Protein 7.7 (6.4-8.2) gm/dl Albumin 3.4 (3.4-5.0) gm/dl Globulin 4.3 H (2.5-4.0) gm/dl Albumin/Globulin Ratio 0.8 L (0.9-2) Urine Color Urine Appearance (Clear) Urine pH (4.5-7.5) Ur Specific [place] (1.000-1.030) Urine Protein (Negative) Urine Glucose (UA) (Negative) Urine Ketones (Negative) Urine Blood (Negative) Urine Nitrite (Negative) Urine Bilirubin (Negative) Urine Urobilinogen (Negative) Ur Leukocyte Esterase (Negative) Urine WBC (Auto) (0-5) /hpf Urine RBC (Auto) (0-4) /hpf U Hyaline Cast (Auto) (0-5) /lpf U Epithel Cells (Auto) (0-5) /lpf Urine Bacteria (Auto) (Negative) Urine Crystals Calcium Oxalate Crystal (None Prsent) 08/24/19 08/24/19 Range/Units 03:13 04:40 WBC (4.8-10.8) K/uL RBC (4.7-6.1) M/uL Hgb (14.0-18.0) g/dL Hct (42-52) % MCV (80-100) fL MCH (25-34) pg MCHC (32-36) g/dL RDW Std Deviation (36.4-46.3) fL RDW Coeff of [place] (11.5-14.5) % Plt Count (130-400) K/uL MPV (7.4-10.4) fL Immature Gran % (Auto) % Neut % (Auto) % Lymph % (Auto) % Burke % (Auto) % Eos % (Auto) % Baso % (Auto) % Immature Gran # (Auto) (0.00-0.02) K/uL Neut # (Auto) (1.4-6.5) K/uL Lymph # (Auto) (1.2-3.4) K/uL Burke # (Auto) (0.11-0.59) K/uL Eos # (Auto) (0-0.5) K/uL Baso # (Auto) (0-0.2) K/uL PT 11.9 (9.0-12.0) Seconds INR 1.2 H (0.9-1.1) Sodium (136-145) mmol/L Potassium (3.5-5.1) mmol/L Chloride (98-107) mmol/L Carbon Dioxide (21-32) mmol/L Anion Gap (3-11) BUN (7-18) mg/dl Creatinine (0.6-1.4) mg/dl Est Cr Clr Drug Dosing ml/min Est GFR ( Amer) Est GFR (Non-Af Amer) BUN/Creatinine Ratio (10-20) Glucose (70-99) mg/dl Lactate (0.4-2.0) mmol/L Calcium (8.5-10.1) mg/dl Magnesium (1.8-2.4) mg/dl Total Bilirubin (0.2-1) mg/dl AST (15-37) U/L ALT (12-78) U/L Alkaline Phosphatase (45-117) U/L Total Protein (6.4-8.2) gm/dl Albumin (3.4-5.0) gm/dl Globulin (2.5-4.0) gm/dl Albumin/Globulin Ratio (0.9-2) Urine Color Yellow Urine Appearance Cloudy A (Clear) Urine pH 5.5 (4.5-7.5) Ur Specific [place] 1.020 (1.000-1.030) Urine Protein 1+ H (Negative) Urine Glucose (UA) Negative (Negative) Urine Ketones 1+ H (Negative) Urine Blood Negative (Negative) Urine Nitrite Negative (Negative) Urine Bilirubin Negative (Negative) Urine Urobilinogen Negative (Negative) Ur Leukocyte Esterase Negative (Negative) Urine WBC (Auto) 1-5 (0-5) /hpf Urine RBC (Auto) 0-4 (0-4) /hpf U Hyaline Cast (Auto) 1-5 (0-5) /lpf U Epithel Cells (Auto) 5-10 H (0-5) /lpf Urine Bacteria (Auto) Negative (Negative) Urine Crystals Not Reportable Calcium Oxalate Crystal Present A (None Prsent) Diagnostic Findings CT head without contrast: Per stat read reportcompared to 05/13/2019no intracranial hemorrhage or skull fracture. Involutional changes and small vessel disease. Left frontal encephalomalacia. Mild sinus disease ECG Additional Comments: The study shows atrial fibrillation at 109 bpm, PVC, QRS = 88, QTc = 47, no acute ischemic changes Code Status & VTE Plan Code Status Full code VTE Prophylaxis Plan VTE Prophylaxis will be ordered: Yes PG Care Time/CCT Total # of Minutes Spent Total Time Spent with Patient: Total time spent is greater than 50% in coordination of care (as documented) at patient's floor/unit and/or counseling patient: (1) GERD (gastroesophageal reflux disease) Esophagitis presence: esophagitis presence not specified Qualified Code(s): K21.9 - Gastro-esophageal reflux disease without esophagitis (2) CAD (coronary artery disease) Coronary Disease-Associated Artery/Lesion type: [place] artery [place] vs. transplanted heart: [place] heart Associated angina: without angina Qualified Code(s): I25.10 - Atherosclerotic heart disease of [place] coronary artery without angina pectoris (3) Hypertension Hypertension type: essential hypertension Qualified Code(s): I10 - Essential (primary) hypertension (4) Diabetes mellitus type 2, controlled Diabetes mellitus snf insulin use: with long term care social worker use Diabetes mellitus complication detail: with other circulatory complications
[2019-08-24] MEDS ORDERED: OXYCODONE HCL IR 5 MG TAB (IMMEDIATE RELEASE) PO PRN ×2 (07:01→07:45)
[2019-08-24] MEDS ORDERED: POLYETHYLENE (MIRALAX) 17 GM PACK PO PRN (07:01)
[2019-08-24] MEDS ORDERED: GLUCOSE 10 TABS/TUBE PO PRN (07:01)
[2019-08-24] MEDS ORDERED: DEXTROSE 50% 50 ML SYRINGE IV PRN (07:01)
[2019-08-24] MEDS ORDERED: NON-FORMULARY MEDICATION (Acetaminophen [Tylenol] 650 MG) PO PRN (07:01)
[2019-08-24] MEDS ORDERED: CARBOHYDRATES FOR HYPOGLYCEMIA PO PRN (07:01)
[2019-08-24] MEDS ORDERED: GLUCOSE 40% GEL 15 GM TUBE PO PRN (07:01)
[2019-08-24] MEDS ORDERED: GLUCAGON FOR INJ 1 MG VIAL SQ PRN (07:01)
[2019-08-24] MEDS ORDERED: DOCUSATE SODIUM 100 MG CAP PO PRN (07:01)
[2019-08-24] MEDS ORDERED: ACETAMINOPHEN 325 MG TAB PO PRN (07:01)
--- NOTE | 2019-08-24 07:10 | Emergency Department Note ---
Entered by Marlene Retana acting as a scribe for Madeline Chapman MD History of Present Illness General Chief complaint: Seizure Stated complaint: SEIZURE Time Seen by Provider: 08/24/19 02:11 Source: patient History of Present Illness Provider complaint: seizure Onset (ago): hour(s) 1 Location: left and right Pain Consistency: + now resolved Maximum Pain Intensity: 0 Quality: + other (seizure) Associated symptoms: + denies other symptoms The patient, who is a 64 year old male with a medical history of GERD, leukocy tosis and hypomagnesemia, presents to the Emergency Room with complaints of an observed seizure that occurred 1.5 hours ago. The patient states that he is unsure what happened. The patient expresses that he feels fine now. The patient confirms that he recently had surgery is staying at [facility] for rehab. 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 The patient's nurse explains that the staff observed the patient having a seizure that lasted two minutes. The patient's nurse states that the patient's report shows that during this episode he was shaking and drooling. The patient reports having a stoke 3.5 months ago Home Medications Home Medications Medication Instructions Recorded Confirmed Type ferrous sulfate 325 mg (65 mg 325 mg PO QAM tab 04/13/19 08/24/19 History iron) tablet,delayed release vit C 250 mg-E 200 unit-zinc 40 1 tab PO BID 04/13/19 08/24/19 History mg-copper 1 tm-rdhchx-axmlcy capsule apixaban 5 mg tablet 5 mg PO BID #60 tab 06/19/19 08/24/19 Rx donepezil 10 mg tablet 10 mg PO HS #90 tab 06/19/19 08/24/19 Rx metformin 1,000 mg tablet 1,000 mg PO BID #180 tab 06/19/19 08/24/19 Rx metoprolol tartrate 75 mg tablet 75 mg PO BID #180 tab 06/19/19 08/24/19 Rx polyethylene glycol 3350 17 17 gm PO DAILY PRN 07/18/19 08/24/19 History gram/dose oral powder aspirin [Adult Low Dose Aspirin] 81 mg PO QAM 08/15/19 08/24/19 History furosemide 40 mg PO QAM 08/15/19 08/24/19 History pantoprazole 40 mg PO QAM 08/15/19 08/24/19 History acetaminophen [Tylenol] 650 mg PO Q4H PRN 08/24/19 08/24/19 History atorvastatin 40 mg PO HS 08/24/19 08/24/19 History docusate sodium 100 mg PO BID 08/24/19 08/24/19 History insulin aspart U-100 [Novolog 1 sliding scale dose SUBCUT ACHS 08/24/19 08/24/19 History U-100 Insulin aspart] melatonin 3 mg PO HS PRN 08/24/19 08/24/19 History multivitamin with minerals 1 tab PO DAILY 08/24/19 08/24/19 History oxycodone 5 mg PO Q6H PRN 08/24/19 08/24/19 History potassium chloride 10 meq PO BID 08/24/19 08/24/19 History Allergies Allergy/AdvReac Type Severity Reaction Status Date / Time No Known Allergies Allergy Verified 08/24/19 02:40 Past Med/Surg History Medical History Atrial fibrillation (Chronic) on pradaxa--follows with Dr. Mattson PAD (peripheral artery disease) Hepatic abscess HX OF AND RESOLVED Gastric ulcer HX OF AND RESOLVED Hemorrhagic cerebrovascular accident (CVA) (Chronic) 01/22/2019 - WAS SEEN IN [facility] ER AND LIFEFLIGHTED TO [place]. HAS ALITTLE TROUBLE TO SPEACH AND DOING THERAPY CAD (coronary artery disease) (Chronic) Foot deformity (Chronic) RIGHT Anemia (Chronic) CHF (congestive heart failure) (Chronic) Diabetes mellitus, type 2 (Chronic) Diabetic peripheral neuropathy (Chronic) H/O diabetic foot ulcer (Chronic) RIGHT FOOT CURRENT ULCER Hyperlipidemia (Chronic) Hypertension (Chronic) Macular degeneration (Chronic) Myocardial Infarction (Chronic) 2001 Osteoarthritis (Chronic) Surgical History History of heart artery stent (Chronic) 2001 @ [facility]--2 LAD stents History of arthroscopy of left knee (Resolved) History of bilateral cataract extraction (Resolved) History of cardiac cath (Resolved) 2001 AND 2 STENTS -- FOLLOWS DR GU History of colonoscopy (Resolved) History of gastric bypass (Resolved) History of hand surgery (Resolved) on middle finger/pinky right hand History of tonsillectomy (Resolved) History of tooth extraction (Resolved) wisdom teeth/all upper teeth Status post right foot surgery (Resolved) REMOVAL OF BONES FROM RIGHT FOOT Family History Mother Family history of diabetes mellitus COPD (chronic obstructive pulmonary disease) Heart failure Brother Family history of diabetes mellitus Myocardial infarction Throat cancer Father Family history of diabetes mellitus Heart failure Grandmother (Maternal) Family history of diabetes mellitus Heart failure Cancer Grandfather (Paternal) Cardiac disorder Grandmother (Paternal) Leukemia Family/Other Heart disease Hypertension Social History Preferred Language: Haitian Communication Ability: Effective Visual Impairment: No Limitations Hearing Ability: Normal Railway Shunter Required: No Beliefs That Will Affect Care: None marital status: Current Living Situation: [facility] current occupational status: retired Feels Safe at Home: Yes Smoking Status: Former smoker Tobacco Type: cigarettes ; Second Hand Exposure: No ; Hx Alcohol Use: No Hx Substance Use: No Dental Care, Regularly: Yes Physical Activity Frequency: Other Physical Activity Frequency Comment: Exercise limited by physical condition Seatbelt Use: always Review of Systems See HPI for pertinent positives & negatives. and A total of 10 systems reviewed and were otherwise negative Physical Exam Vital Signs Vital Signs - 24 hr 08/24/19 05:30 Pulse Rate 112 H Pulse Rate from SpO2 Sensor 101 H Respiratory Rate 19 Blood Pressure 135/78 Blood Pressure Mean 97 Pulse Oximetry 96 Oxygen Delivery Method Nasal Cannula Oxygen Flow Rate 2 Vital signs reviewed. General: Chronically ill appearing, in no significant distress. HEENT: No scleral icterus, PERRLA, neck supple. Atraumatic. Cardiovascular: Tachycardic rate and irregular rhythm, no extra sounds. Pulmonary: Clear to auscultation bilaterally, normal work of breathing. Abdomen: Soft, nontender, nondistended, positive bowel sounds. Musculoskeletal: Atraumatic, no peripheral edema. Right extremity below the knee amputation. Neurologic: Patient awake alert and oriented x 3, slightly diminished right research staff member strength. Cranial nerves 2 through 12 grossly intact. Mild expressive aphasia Skin: Warm, dry, no rash Course 0223: Past medical records reviewed. The patient was evaluated in room B2. A complete history and physical exam was performed. 0302: Sodium Chloride administered to the patient 0324: Lopressor administered to the patient 0513: I reviewed the patient's case with Edie Amaya PA-C. She will evaluate the patient for further management. Consultations Consultation #1: I reviewed the patient's case with Edie Amaya PA-C. She will evaluate the patient for further management. Time: 05:13 Administered Medications Apixaban (Eliquis) 5 mg PO BID [facility] Stop: 09/23/19 08:59 Last Admin: 08/24/19 20:37 Dose: 5 mg Documented by: [id number] Admin: 08/24/19 10:25 Dose: 5 mg Documented by: [id number] Aspirin (Ecotrin Ectab) 81 mg PO QAM [facility] Stop: 09/23/19 08:59 Last Admin: 08/24/19 10:24 Dose: 81 mg Documented by: [id number] Atorvastatin Calcium (Lipitor) 40 mg PO HS [facility] Stop: 09/23/19 20:59 Last Admin: 08/24/19 20:36 Dose: 40 mg Documented by: [id number] Donepezil HCl (Aricept) 10 mg PO [facility] Stop: 09/23/19 20:59 Last Admin: 08/24/19 20:36 Dose: 10 mg Documented by: [id number] Ferrous Sulfate (Feosol) 325 mg PO QAM [facility] Stop: 09/23/19 08:59 Last Admin: 08/24/19 10:25 Dose: 325 mg Documented by: [id number] Furosemide (Lasix) 40 mg PO QAM [facility] Stop: 09/23/19 08:59 Last Admin: 08/24/19 10:26 Dose: 40 mg Documented by: [id number] Insulin Aspart (Novolog Flexpen) 0 units SC ACHS [facility] Stop: 09/23/19 07:29 Last Admin: 08/24/19 20:44 Dose: 3 units Documented by: [id number] Cosigned by: [id number] Admin: 08/24/19 19:07 Dose: 3 units Documented by: [id number] Cosigned by: [id number] Admin: 08/24/19 13:43 Dose: 6 units Documented by: [id number] Cosigned by: [id number] Admin: 08/24/19 10:52 Dose: 4 units Documented by: [id number] Cosigned by: [id number] Insulin Glargine (Lantus Solostar Pen) 5 units SC BID [facility] Stop: 09/23/19 08:59 Last Admin: 08/24/19 20:43 Dose: 5 units Documented by: [id number] Cosigned by: [id number] Admin: 08/24/19 10:52 Dose: 5 units Documented by: [id number] Cosigned by: [id number] Levetiracetam (Keppra) 500 mg PO Q12H [facility] Stop: 09/23/19 10:59 Last Admin: 08/24/19 22:57 Dose: 500 mg Documented by: [id number] Admin: 08/24/19 12:02 Dose: 500 mg Documented by: [id number] Metoprolol Tartrate (Lopressor) 75 mg PO BID [facility] Stop: 09/23/19 08:59 Last Admin: 08/24/19 20:37 Dose: 75 mg Documented by: [id number] Admin: 08/24/19 10:27 Dose: 75 mg Documented by: [id number] Multivitamins/Minerals (Multivitamin W/ Minerals Tab) 1 tab PO BID [facility] Stop: 09/23/19 08:59 Last Admin: 08/24/19 20:36 Dose: 1 tab Documented by: [id number] Admin: 08/24/19 10:49 Dose: 1 tab Documented by: [id number] Pantoprazole Sodium (Protonix) 40 mg PO QAM [facility] Stop: 09/23/19 08:59 Last Admin: 08/24/19 10:27 Dose: 40 mg Documented by: [id number] Discontinued Medications Sodium Chloride (Nss 1000ml) 1,000 mls @ 150 mls/hr IV .Q6H40M [facility] Stop: 08/24/19 09:24 Last Infusion: 08/25/19 00:30 Dose: 0 mls/hr Documented by: [id number] Infusion: 08/24/19 06:19 Dose: 0 mls/hr Documented by: [id number] Admin: 08/24/19 03:02 Dose: 150 mls/hr Documented by: [id number] Sodium Chloride (Nss 1000ml) 1,000 mls @ 80 mls/hr IV .[id number] [facility] Stop: 08/24/19 19:30 Last Infusion: 08/24/19 22:59 Dose: 0 mls/hr Documented by: [id number] Admin: 08/24/19 10:29 Dose: 80 mls/hr Documented by: [id number] Magnesium Sulfate/Dextrose (Magnesium Sulfate / D5w) 1 gm in 100 mls @ 100 mls/hr IV TODAY@0745 [facility] Stop: 08/24/19 08:44 Last Infusion: 08/24/19 11:31 Dose: 0 mls/hr Documented by: [id number] Admin: 08/24/19 10:31 Dose: 100 mls/hr Documented by: [id number] Metoprolol Tartrate (Lopressor) 5 mg IV NOW STA Stop: 08/24/19 03:20 Last Admin: 08/24/19 03:24 Dose: 5 mg Documented by: [id number] Medical Decision Making Differential Diagnosis Differential Diagnosis includes but is not limited to dehydration, stroke, anemia, hypoglycemia, hyponatremia, hypernatremia, urinary tract infection, pneumonia, bronchitis, sepsis, gastroenteritis, additional abdominal pathology, metabolic abnormalities and infections. Medical Records Attestation: I reviewed the patient's medical records. Home Medications Current Medication List: was personally reviewed by me Laboratory Data Attestation: I reviewed the patient's lab results. Result diagrams: 08/24/19 02:00 08/24/19 02:00 Lab Results 08/24/19 08/24/19 08/24/19 Range/Units 02:00 02:00 03:13 WBC 7.58 (4.8-10.8) K/uL RBC 4.18 L (4.7-6.1) M/uL Hgb 12.0 L (14.0-18.0) g/dL Hct 37.0 L (42-52) % MCV 88.5 (80-100) fL MCH 28.7 (25-34) pg MCHC 32.4 (32-36) g/dL RDW Std Deviation 43.8 (36.4-46.3) fL RDW Coeff of Clay 13.6 (11.5-14.5) % Plt Count 248 (130-400) K/uL MPV 9.8 (7.4-10.4) fL Immature Gran % (Auto) 0.3 % Neut % (Auto) 72.9 % Lymph % (Auto) 16.6 % [place] % (Auto) 7.3 % Eos % (Auto) 2.6 % Baso % (Auto) 0.3 % Immature Gran # (Auto) 0.02 (0.00-0.02) K/uL Neut # (Auto) 5.53 (1.4-6.5) K/uL Lymph # (Auto) 1.26 (1.2-3.4) K/uL [place] # (Auto) 0.55 (0.11-0.59) K/uL Eos # (Auto) 0.20 (0-0.5) K/uL Baso # (Auto) 0.02 (0-0.2) K/uL PT (9.0-12.0) Seconds INR (0.9-1.1) Sodium 139 (136-145) mmol/L Potassium 3.7 (3.5-5.1) mmol/L Chloride 103 (98-107) mmol/L Carbon Dioxide 23 (21-32) mmol/L Anion Gap 13.0 H (3-11) BUN 20 H (7-18) mg/dl Creatinine 0.85 (0.6-1.4) mg/dl Est Cr Clr Drug Dosing 83.1 ml/min Est GFR ( Amer) 106.0 Est GFR (Non-Af Amer) 91.4 BUN/Creatinine Ratio 23.7 H (10-20) Glucose 152 H (70-99) mg/dl Lactate 1.2 (0.4-2.0) mmol/L Calcium 9.3 (8.5-10.1) mg/dl Magnesium 1.7 L (1.8-2.4) mg/dl Total Bilirubin 0.7 (0.2-1) mg/dl AST 15 (15-37) U/L ALT 16 (12-78) U/L Alkaline Phosphatase 106 (45-117) U/L Total Protein 7.7 (6.4-8.2) gm/dl Albumin 3.4 (3.4-5.0) gm/dl Globulin 4.3 H (2.5-4.0) gm/dl Albumin/Globulin Ratio 0.8 L (0.9-2) Urine Color Urine Appearance (Clear) Urine pH (4.5-7.5) Ur Specific [place] (1.000-1.030) Urine Protein (Negative) Urine Glucose (UA) (Negative) Urine Ketones (Negative) Urine Blood (Negative) Urine Nitrite (Negative) Urine Bilirubin (Negative) Urine Urobilinogen (Negative) Ur Leukocyte Esterase (Negative) Urine WBC (Auto) (0-5) /hpf Urine RBC (Auto) (0-4) /hpf U Hyaline Cast (Auto) (0-5) /lpf U Epithel Cells (Auto) (0-5) /lpf Urine Bacteria (Auto) (Negative) Urine Crystals Calcium Oxalate Crystal (None Prsent) 08/24/19 08/24/19 Range/Units 03:13 04:40 WBC (4.8-10.8) K/uL RBC (4.7-6.1) M/uL Hgb (14.0-18.0) g/dL Hct (42-52) % MCV (80-100) fL MCH (25-34) pg MCHC (32-36) g/dL RDW Std Deviation (36.4-46.3) fL RDW Coeff of Clay (11.5-14.5) % Plt Count (130-400) K/uL MPV (7.4-10.4) fL Immature Gran % (Auto) % Neut % (Auto) % Lymph % (Auto) % [place] % (Auto) % Eos % (Auto) % Baso % (Auto) % Immature Gran # (Auto) (0.00-0.02) K/uL Neut # (Auto) (1.4-6.5) K/uL Lymph # (Auto) (1.2-3.4) K/uL [place] # (Auto) (0.11-0.59) K/uL Eos # (Auto) (0-0.5) K/uL Baso # (Auto) (0-0.2) K/uL PT 11.9 (9.0-12.0) Seconds INR 1.2 H (0.9-1.1) Sodium (136-145) mmol/L Potassium (3.5-5.1) mmol/L Chloride (98-107) mmol/L Carbon Dioxide (21-32) mmol/L Anion Gap (3-11) BUN (7-18) mg/dl Creatinine (0.6-1.4) mg/dl Est Cr Clr Drug Dosing ml/min Est GFR ( Amer) Est GFR (Non-Af Amer) BUN/Creatinine Ratio (10-20) Glucose (70-99) mg/dl Lactate (0.4-2.0) mmol/L Calcium (8.5-10.1) mg/dl Magnesium (1.8-2.4) mg/dl Total Bilirubin (0.2-1) mg/dl AST (15-37) U/L ALT (12-78) U/L Alkaline Phosphatase (45-117) U/L Total Protein (6.4-8.2) gm/dl Albumin (3.4-5.0) gm/dl Globulin (2.5-4.0) gm/dl Albumin/Globulin Ratio (0.9-2) Urine Color Yellow Urine Appearance Cloudy A (Clear) Urine pH 5.5 (4.5-7.5) Ur Specific [place] 1.020 (1.000-1.030) Urine Protein 1+ H (Negative) Urine Glucose (UA) Negative (Negative) Urine Ketones 1+ H (Negative) Urine Blood Negative (Negative) Urine Nitrite Negative (Negative) Urine Bilirubin Negative (Negative) Urine Urobilinogen Negative (Negative) Ur Leukocyte Esterase Negative (Negative) Urine WBC (Auto) 1-5 (0-5) /hpf Urine RBC (Auto) 0-4 (0-4) /hpf U Hyaline Cast (Auto) 1-5 (0-5) /lpf U Epithel Cells (Auto) 5-10 H (0-5) /lpf Urine Bacteria (Auto) Negative (Negative) Urine Crystals Not Reportable Calcium Oxalate Crystal Present A (None Prsent) Imaging Data Radiologist's Impression: Radiology results as stated below per my review and the radiologist's interpretation: CT HEAD: No intracranial hemorrhage or skull fracture. Involutional changes and small vessel disease Mild sinus disease Radiologist: Ilene Singleton MD Study ready at 0305 and initial results transmitted at 0333. ECG Data Attestation: I personally reviewed and interpreted this ECG as follows: Indication: other (seizure) Rate (beats per minute): 109 Rhythm: atrial fibrillation Findings: + other (QTC = 487) and + PVC; no acute ischemic change Comparison ECG Date: from (05/03/19) Change: the following changes noted (Rate was decreased; T wave in the lateral leads has resolved) Blood Pressure Blood Pressure Findings: Normal blood pressure MDM Narrative This patient was evaluated and appeared to be in no significant distress. Physical examination is consistent with a chronically ill-appearing older male with a right below the knee amputation. He is able to answer questions appropriately and has a mild articulation abnormality which by report is baseline. Patient is awake and alert. He has a minimal research staff member strength di screpancy, but no acute neurologic findings. CT scan of the head was performed and reveals no evidence of acute intracranial abnormality. Patient's laboratory work was reviewed and there is no significant abnormalities. Patient had no further seizure-like activity during his stay in the ED. Patient did receive IV metoprolol for rapid atrial fibrillation. Given his recent multiple medical issues including stroke and rehab hospital stay, patient will be evaluated by the hospitalist service for further management. Patient and were made aware of the plan and agreed. Impression & Plan New onset seizure, Atrial fibrillation with RVR, History of stroke Discharge Plan Visit Data *Final* Discharge Date/Time: 08/24/19 06:20 Chief Complaint: Seizure Stated Complaint: SEIZURE ED Provider: Madeline Chapman Discharge Problem: New onset seizure, Atrial fibrillation with RVR, History of stroke Patient Disposition: Admitted As Inpatient Discharge Instructions Interventions: ED Discharge Assessment Last Done: 08/24/19 06:20 The scribe's documentation has been prepared under my direction and personally reviewed by me in its entirety. I confirm that the note above accurately reflects all work, treatment, procedures, and medical decision making performed by me.
--- NOTE | 2019-08-24 07:13 | CT Scan Report ---
CT SCAN OF THE BRAIN WITHOUT IV CONTRAST CLINICAL HISTORY: Seizure. COMPARISON STUDY: CT of the brain dated 05/03/2019. TECHNIQUE: Unenhanced axial CT scan of the brain is performed from the vertex to the skull base. A do se lowering technique was utilized adhering to the principles of ALARA. CT DOSE: 614.27 mGy.cm FINDINGS: Brain parenchyma: Left frontal encephalomalacia is unchanged and consistent with a remote insult. The re are age-related involutional changes noting mild to moderate subcortical and periventricular micr oangiopathic change. There is no hemorrhage, mass effect, or evidence of acute territorial ischemia b y CT criteria. Mullins-white matter differentiation is preserved. No extra-axial fluid collection is see n. Ventricles, sulci, cisterns: Prominent secondary to involutional change. Intracranial vasculature: There is atherosclerotic calcification of the cavernous carotid and vertebr al arteries. Calvarium: Unremarkable. Sinuses and mastoids: Trace mucosal thickening is noted in the right maxillary antrum. The remaining visualized paranasal sinuses are clear. The mastoid air cells are well pneumatized. Orbits: The bony orbits are grossly intact. There are bilateral ocular lens implants. IMPRESSION: Chronic changes as above with no hemorrhage, mass effect, or evidence of acute territoria l ischemia by CT criteria. Electronically signed by: Shaun Christianson M.D. 08/24/2019 7:11 AM
[2019-08-24] MEDS ORDERED: MAGNESIUM SULFATE / D5W 1 GM/100 ML BAG IV SCH (07:45)
[2019-08-24 08:22] LABS: Phosphorus 2.4 mg/dl (2.5-4.9); Thyroid Stimulating Hormone 0.879 uIu/ml (0.300-4.500)
--- NOTE | 2019-08-24 09:33 | Electroencephalogram ---
EEG Procedure Note Date of Service August 24, 2019 Start / End Times Start Time: 8:41 AM End Time: 9:01 AM Referring Physician Apurva Amaya DO History Seizure, history of left hemispheric stroke Home Medication List Home Medications Medication Instructions Recorded Confirmed Type ferrous sulfate 325 mg (65 mg 325 mg PO QAM tab 04/13/19 08/24/19 History iron) tablet,delayed release vit C 250 mg-E 200 unit-zinc 40 1 tab PO BID 04/13/19 08/24/19 History mg-copper 1 [id number] capsule apixaban 5 mg tablet 5 mg PO BID #60 tab 06/19/19 08/24/19 Rx donepezil 10 mg tablet 10 mg PO HS #90 tab 06/19/19 08/24/19 Rx metformin 1,000 mg tablet 1,000 mg PO BID #180 tab 06/19/19 08/24/19 Rx metoprolol tartrate 75 mg tablet 75 mg PO BID #180 tab 06/19/19 08/24/19 Rx polyethylene glycol 3350 17 17 gm PO DAILY PRN 07/18/19 08/24/19 History gram/dose oral powder aspirin [Adult Low Dose Aspirin] 81 mg PO QAM 08/15/19 08/24/19 History furosemide 40 mg PO QAM 08/15/19 08/24/19 History pantoprazole 40 mg PO QAM 08/15/19 08/24/19 History acetaminophen [Tylenol] 650 mg PO Q4H PRN 08/24/19 08/24/19 History atorvastatin 40 mg PO HS 08/24/19 08/24/19 History docusate sodium 100 mg PO BID 08/24/19 08/24/19 History insulin aspart U-100 [Novolog 1 sliding scale dose SUBCUT ACHS 08/24/19 08/24/19 History U-100 Insulin aspart] melatonin 3 mg PO HS PRN 08/24/19 08/24/19 History multivitamin with minerals 1 tab PO DAILY 08/24/19 08/24/19 History oxycodone 5 mg PO Q6H PRN 08/24/19 08/24/19 History potassium chloride 10 meq PO BID 08/24/19 08/24/19 History Inpatient Medication List Discontinued Medications Sodium Chloride (Nss 1000ml) 1,000 mls @ 150 mls/hr IV .Q6H40M [facility] Stop: 08/24/19 09:24 Last Infusion: 08/24/19 06:19 Dose: 0 mls/hr Documented by: [id number] Admin: 08/24/19 03:02 Dose: 150 mls/hr Documented by: [id number] Metoprolol Tartrate (Lopressor) 5 mg IV NOW STA Stop: 08/24/19 03:20 Last Admin: 08/24/19 03:24 Dose: 5 mg Documented by: [id number] Description This is a 21 electrode EEG with a single channel dedicated to limited EKG. The electrodes were placed in accordance with the International 10-20 system. There is a posterior dominant rhythm of 10 Hz which is symmetrically distributed and attenuates with eye opening. There is admixed generalized theta activity throughout the majority of the study. There is a normal anterior to posterior organization. Photic stimulation is unremarkable. Hyperventilation is not performed. There is focal delta slowing seen over the left frontal region throughout the majority of the study. No epileptiform abnormalities appreciated. Interpretation Is an abnormal awake drowsy EEG revealing focal slowing localizing to the left frontal region consistent with underlying focal neuronal dysfunction or a structural lesion. No epileptiform abnormalities observed, however. Clinical Correlation Focal slowing as above, please correlate with neuroimaging. The observed findings do not exclude an underlying seizure focus. Further clinical narda elation needed. [facility] EEG Procedure Codes Indication for Procedure (1) New onset seizure: Neurology Neurology: 77010 EEG include record awake & drowsy
[2019-08-24] MEDS: ASPIRIN 81 MG ECTAB PO SCH (10:24)
[2019-08-24] MEDS: FERROUS SULFATE 325 MG TAB PO SCH (10:25)
[2019-08-24] MEDS: APIXABAN 5 MG TABLET PO SCH ×2 (10:25→20:37)
[2019-08-24] MEDS: FUROSEMIDE 40 MG TAB PO SCH (10:26)
[2019-08-24] MEDS: METOPROLOL TARTRATE 25 MG TAB PO SCH ×2 (10:27→20:37)
[2019-08-24] MEDS: PANTOprazole 40 MG TAB PO SCH (10:27)
--- NOTE | 2019-08-24 10:48 | Magnetic Resonance Report ---
MRI OF THE BRAIN WITHOUT IV CONTRAST CLINICAL HISTORY: Seizure. COMPARISON STUDY: CT of the brain dated 08/24/2019. TECHNIQUE: MRI of the brain was performed utilizing various T1 and T2-weighted sequences in the axial , sagittal, and coronal planes. IV contrast was not administered for this examination. The examinatio n is performed using the seizure protocol. FINDINGS: Brain parenchyma: Left frontal encephalomalacia is consistent with a remote infarct. There are tiny c hronic lacunar infarcts identified in both cerebellar hemispheres. There is age-related involutional change noting moderate subcortical and periventricular microangiopathic disease. There is no hemorrha ge or mass effect. There is no restricted diffusion to suggest acute ischemia. Mullins-white matter diff erentiation is preserved. No extra-axial fluid collection is seen. The cerebellar tonsils are normal in configuration. The hippocampi are normal and symmetric. Ventricles, sulci, and cisterns: Prominent secondary to involutional change. Pituitary and sella: Unremarkable. Intracranial vasculature: Normal flow voids are maintained at the skull base. Orbits: The bony orbits are grossly intact. Orbital contents are normal in appearance noting bilatera l ocular lens implants. Sinuses and mastoids: There is trace because of thickening within the maxillary antra. Mild mucosal t hickening is also seen in the ethmoid sinuses. The remaining paranasal sinuses are clear. The mastoid air cells are well pneumatized. Calvarium: Unremarkable. Cervical cord: Partially visualized cervical spinal cord is normal in morphology and signal intensity . IMPRESSION: No acute intracranial abnormality. Electronically signed by: Shaun Christianson M.D. 08/24/2019 10:47 AM
--- NOTE | 2019-08-24 10:48 | Neurology Consultation ---
Date of Consultation August 24, 2019 Assessment & Plan (1) New onset seizure: New onset witnessed generalized seizure probably related to the chronic, moderately sized left MCA (anterior sylvian) stroke occurring this past December. Given this patient's clinical history as well as imaging and focal EEG findings I would recommend treatment with an anticonvulsant. An intravenous loading dose is not necessary, however, given this patient's current clinical stability. I would recommend starting with Keppra 500 mg every 12 hours. (2) History of stroke: History of left MCA (anterior sylvian branch) infarct occurring this past December, in the context of atrial fibrillation, presenting with an aphasia and right hemiparesis, significantly improved although he does have a subtle right hemiparesis affecting the upper limb as well as subtle speech hesitancy but intact naming, repetition, and comprehension. Would continue with Eliquis and daily low-dose aspirin as ordered. Continue other cardiovascular risk modifying medications as well including Lipitor and propranolol. History of Present Illness Reason for Consultation: Seizure Requesting Physician: Roberto Sung Attending Physician: Roberto Sung History of Present Illness The patient is a 64-year-old male with a chief complaint of seizure. The patient has poor recollection of the episode. He was at [facility] recovering from a recent right below the knee amputation when he had a witnessed convulsive episode that occurred about 90 minutes prior to arrival in the emergency department yesterday. Staff had reported a generalized convulsive episode characterized by loss of consciousness and shaking of the limbs lasting about 2 minutes. There was no report of associated tongue bite or incontinence. The patient did not sustain any injuries. He recalls perceiving some flashes of light and perhaps some dizziness prior to onset of the episode. He also recalls awakening, lying in a bed at [facility] as well. Past medical history notable for a moderate sized left MCA branch territory infarct with hemorrhagic conversion occurring this past December. He was transferred to [facility] for further evaluation and management at that time. History also notable for atrial fibrillation. Anticoagulation was resumed after the above hemorrhagic infarct. He did have some mild residual aphasia and an associated right hemiparesis. These issues have considerably improved. No prior history of seizure disorder. A CT of the head completed at the time of this patient's most recent admission to the hospital is negative for hemorrhage or acute process. There is left frontal encephalomalacia related to this patient's history of known left hemispheric stroke. I reviewed the images as well as the radiologist interpretation of this test. A follow-up brain MRI has also been completed. Per my review, there is not appear to be any evidence of restricted diffusion consistent with an acute or subacute infarct. The left frontal enc ephalomalacia is again appreciated. An EEG was completed this morning as well which reveals left frontal slowing, although no epileptiform abnormalities. An anticonvulsant has not been started. Allergies Allergy/AdvReac Type Severity Reaction Status Date / Time No Known Allergies Allergy Verified 08/24/19 02:40 Home Medications Home Medications Medication Instructions Recorded Confirmed Type ferrous sulfate 325 mg (65 mg 325 mg PO QAM tab 04/13/19 08/24/19 History iron) tablet,delayed release vit C 250 mg-E 200 unit-zinc 40 1 tab PO BID 04/13/19 08/24/19 History mg-copper 1 [id number] capsule apixaban 5 mg tablet 5 mg PO BID #60 tab 06/19/19 08/24/19 Rx donepezil 10 mg tablet 10 mg PO HS #90 tab 06/19/19 08/24/19 Rx metformin 1,000 mg tablet 1,000 mg PO BID #180 tab 06/19/19 08/24/19 Rx metoprolol tartrate 75 mg tablet 75 mg PO BID #180 tab 06/19/19 08/24/19 Rx polyethylene glycol 3350 17 17 gm PO DAILY PRN 07/18/19 08/24/19 History gram/dose oral powder aspirin [Adult Low Dose Aspirin] 81 mg PO QAM 08/15/19 08/24/19 History furosemide 40 mg PO QAM 08/15/19 08/24/19 History pantoprazole 40 mg PO QAM 08/15/19 08/24/19 History acetaminophen [Tylenol] 650 mg PO Q4H PRN 08/24/19 08/24/19 History atorvastatin 40 mg PO HS 08/24/19 08/24/19 History docusate sodium 100 mg PO BID 08/24/19 08/24/19 History insulin aspart U-100 [Novolog 1 sliding scale dose SUBCUT ACHS 08/24/19 08/24/19 History U-100 Insulin aspart] melatonin 3 mg PO HS PRN 08/24/19 08/24/19 History multivitamin with minerals 1 tab PO DAILY 08/24/19 08/24/19 History oxycodone 5 mg PO Q6H PRN 08/24/19 08/24/19 History potassium chloride 10 meq PO BID 08/24/19 08/24/19 History Patient History Medical History Atrial fibrillation (Chronic) on pradaxa--follows with Dr. Mattson PAD (peripheral artery disease) Hepatic abscess HX OF AND RESOLVED Gastric ulcer HX OF AND RESOLVED Hemorrhagic cerebrovascular accident (CVA) (Chronic) 01/22/2019 - WAS SEEN IN [facility] ER AND LIFEFLIGHTED TO [place]. HAS ALITTLE TROUBLE TO SPEACH AND DOING THERAPY CAD (coronary artery disease) (Chronic) Foot deformity (Chronic) RIGHT Anemia (Chronic) CHF (congestive heart failure) (Chronic) Diabetes mellitus, type 2 (Chronic) Diabetic peripheral neuropathy (Chronic) H/O diabetic foot ulcer (Chronic) RIGHT FOOT CURRENT ULCER Hyperlipidemia (Chronic) Hypertension (Chronic) Macular degeneration (Chronic) Myocardial Infarction (Chronic) 2001 Osteoarthritis (Chronic) Surgical History History of heart artery stent (Chronic) 2001 @ [facility]--2 LAD stents History of arthroscopy of left knee (Resolved) History of bilateral cataract extraction (Resolved) History of cardiac cath (Resolved) 2001 AND 2 STENTS -- FOLLOWS DR GU History of colonoscopy (Resolved) History of gastric bypass (Resolved) History of hand surgery (Resolved) on middle finger/pinky right hand History of tonsillectomy (Resolved) History of tooth extraction (Resolved) wisdom teeth/all upper teeth Status post right foot surgery (Resolved) REMOVAL OF BONES FROM RIGHT FOOT Family History Mother Family history of diabetes mellitus COPD (chronic obstructive pulmonary disease) Heart failure Brother Family history of diabetes mellitus Myocardial infarction Throat cancer Father Family history of diabetes mellitus Heart failure Grandmother (Maternal) Family history of diabetes mellitus Heart failure Cancer Grandfather (Paternal) Cardiac disorder Grandmother (Paternal) Leukemia Family/Other Heart disease Hypertension Social History Preferred Language: Nicaraguan Communication Ability: Effective Visual Impairment: No Limitations Hearing Ability: Normal Police Commanding Officer Required: No Beliefs That Will Affect Care: None marital status: Current Living Situation: [facility] current occupational status: retired Feels Safe at Home: Yes Smoking Status: Former smoker Tobacco Type: cigarettes ; Second Hand Exposure: No ; Hx Alcohol Use: No Hx Substance Use: No Dental Care, Regularly: Yes Physical Activity Frequency: Other Physical Activity Frequency Comment: Exercise limited by physical condition Seatbelt Use: always Review of Systems Constitutional: no fever and no chills Eyes: no blind spots and no diplopia Ear, Nose, Mouth, Throat: no hearing loss Respiratory: no cough and no dyspnea Cardiovascular: no chest pain and no palpitations Gastrointestinal: no nausea and no vomiting Genitourinary: no urinary incontinence Musculoskeletal: no myalgia Integumentary: no rash and no lesions Neurologic: as per Subjective / HPI, + loss of sensation, + paresthesia and + seizure-like activity; no headache(s), no abnormal speech, no confusion and no memory loss Psychiatric: no depression and no anxiety Hematologic / Lymphatic: no easy bleeding and no easy bruising Physical Exam Physical Exam: The patient is a well-developed, well-nourished elderly male. He is lying comfortably in bed. There is a recent right below the knee amputation with dressings and protective external bracing. The patient is alert and fully oriented. Recent and remote memory intact although he is somewhat amnestic for the recent seizure episode. Attention and concentration are normal. Patient exhibits a fairlt normal spontaneous speech pattern, although there is slight expressive speech hesitancy from time to time. He is able to name objects and repeat phrases without difficulty. Language comprehension intact. Fund of knowledge normal. Visual askew full to confrontation. Visual acuity normal. Pupils equal round reactive to light and accommodation. Eye movements normal. There is no ptosis, nystagmus, or ophthalmoplegia. Facial sensation intact. There is no facial droop or weakness. Hearing intact. Palate elevates to midline. Shoulder shrug intact. Tongue protrudes to midline. There is a length dependent deficit to sensation affecting the arms and left leg. (Right BKA noted.) Deep tendon reflexes are diffusely diminished. Left plantar response silent. There is mild dysmetria with [id number] on the right, none on the left. There is a mild right upper extremity pronator drift. No gross incoordinated movements for the left lower limb. Ophthalmoscopic examination reveals normal-appearing optic disks and posterior segments. No papilledema or hemorrhages. Carotid pulses normal bilaterally, no bruits to auscultation. Gait and station cannot be tested due to safety concerns in the context of recent seizure and patient's right below the knee amputation. Muscle strength intact for the arms and left leg as well as the right leg proximally. Muscle tone normal throughout. No atrophy. No abnormal movements observed. Results & Data Vital Signs (Past 12 Hours) Vital Signs Temp Pulse Pulse Resp BP BP Pulse Ox 08/24/19 06:42 36.7 C 96 H 18 106/73 96 08/24/19 06:00 86 19 121/62 95 08/24/19 05:30 112 H 19 135/78 96 08/24/19 05:00 89 18 135/74 97 08/24/19 04:30 88 20 135/66 97 08/24/19 04:00 90 19 128/68 96 08/24/19 03:30 88 18 100/58 L 96 08/24/19 03:24 95 H 126/72 08/24/19 03:04 118 H 16 126/72 94 08/24/19 02:30 108 H 9 L 120/61 93 08/24/19 02:07 36.7 C 116 H 14 121/61 88 L Laboratory Results WBC 7.58, hemoglobin 12.0, hematocrit 37.0, platelet count 248, sodium 139, potassium 3.7, BUN 20, creatinine 0.85, glucose 152, calcium 9.3, magnesium 1.7, AST 15, ALT 16, ammonia 14.0, total CK 42, TSH 0.[address] of the head negative for hemorrhage or acute process. There is left frontal encephalomalacia, unchanged from previous study done this past May consistent with a remote stroke. There is mild to moderate subcortical and periventricular microangiopathic change as well. I reviewed the images as well as the radiologist interpretation of this test. Images available from the recently completed brain MRI. No areas of restricted diffusion consistent with an acute or subacute infarct. There is a chronic perisylvian, anterior, left MCA territory infarct of moderate size. There is fairly extensive chronic periventricular and subcortical microangiopathic disease. I reviewed the images pertaining to this recently completed MRI. Radiology report pending at this time. Electrocardiogram reveals atrial fibrillation with rapid ventricular response, 109 bpm An EEG completed this morning reveals focal slowing localizing to the left frontal region, no epileptiform abnormalities. I reviewed the tracing pertaining to the study.
[2019-08-24] MEDS: CEROVITE ADV FORMULA TAB PO SCH ×2 (10:49→20:36)
[2019-08-24] MEDS: INSULIN ASPART 100 UNITS/ML 3 ML PEN SC SCH ×4 (10:52→20:44)
[2019-08-24] MEDS: INSULIN GLARGINE SOLOSTAR 100 UNITS/ML 3 ML PEN SC SCH ×2 (10:52→20:43)
[2019-08-24] MEDS: levETIRAcetam 500 MG TAB PO SCH ×2 (12:02→22:57)
[2019-08-24] MEDS ORDERED: DONEPEZIL HCL 10 MG TAB PO SCH (21:00)
[2019-08-24] MEDS ORDERED: ATORVASTATIN 40 MG TAB PO SCH (21:00)
[2019-08-25 06:14] LABS: Basophils # (auto) 0.03 K/uL (0-0.2); Basophils % (auto) 0.6 %; Eosinophils % (auto) 4.1 %; Hematocrit (blood only) 30.9 % (42-52); Immature Granulocytes # (auto) 0.01 K/uL (0.00-0.02); Immature Granulocytes % (auto) 0.2 %; Lymphocytes # (auto) 1.18 K/uL (1.2-3.4); Lymphocytes % (auto) 24.1 %; Mean Corpuscular Hemoglobin 28.7 pg (25-34); Mean Corpuscular Hgb Conc 32.4 g/dL (32-36); Mean Corpuscular Volume 88.5 fL (80-100); Mean Platelet Volume 9.6 fL (7.4-10.4); Monocytes # (auto) 0.48 K/uL (0.11-0.59); Monocytes % (auto) 9.8 %; Neutrophils # (auto) 2.99 K/uL (1.4-6.5); Neutrophils % (auto) 61.2 %; Platelet Count 225 K/uL (130-400); RDW Coefficient of Variation 13.8 % (11.5-14.5); RDW Standard Deviation 44.1 fL (36.4-46.3); Red Blood Count 3.49 M/uL (4.7-6.1); White Blood Count 4.89 K/uL (4.8-10.8)
[2019-08-25 06:47] LABS: BUN Creatinine Ratio 20.6 (10-20); Calcium 8.5 mg/dl (8.5-10.1); Creatinine Clr Calc Pharmacy 128.5 ml/min; Est GFR (African American) 126.7; Est GFR (Non-African American) 109.4; Potassium 3.4 mmol/L (3.5-5.1)
[2019-08-25] MEDS: INSULIN GLARGINE SOLOSTAR 100 UNITS/ML 3 ML PEN SC SCH (08:51)
[2019-08-25] MEDS: INSULIN ASPART 100 UNITS/ML 3 ML PEN SC SCH ×2 (08:52→13:20)
[2019-08-25] MEDS: APIXABAN 5 MG TABLET PO SCH (08:53)
[2019-08-25] MEDS: FERROUS SULFATE 325 MG TAB PO SCH (08:53)
[2019-08-25] MEDS: METOPROLOL TARTRATE 25 MG TAB PO SCH (08:54)
[2019-08-25] MEDS: CEROVITE ADV FORMULA TAB PO SCH (08:54)
[2019-08-25] MEDS: PANTOprazole 40 MG TAB PO SCH (08:54)
[2019-08-25] MEDS: ASPIRIN 81 MG ECTAB PO SCH (08:54)
[2019-08-25] MEDS: FUROSEMIDE 40 MG TAB PO SCH (08:54)
--- NOTE | 2019-08-25 11:00 | Medical Student Progress Note ---
Date of Service August 25, 2019 Assessment & Plan (1) New onset seizure: Witnessed seizure of two-minutes duration occurring on 08/24. It is most likely due to a lowered seizure threshold secondary to his right MCA stroke in December. -Electrolytes normal and no evidence of acute ischemia or intracranial mass -EEG consistent with focal slowing consistent with underlying structural lesion or neuronal dysfunction -started on Levetiracetam 500 mg ever 12 hours -unable to drive for 6 months (2) History of stroke: History of right MCA stroke in December, resulting in aphasia and right hemiparesis. The patient has recovered to what he considers to be his baseline, and not aphasia or focal neurologic deficits are appreciated at this time. -continue ASA 81 mg daily and Atorvastatin 40 mg daily Continue Aricept for memory Present on Admission?: Yes (3) Status post bilateral below knee amputation: He is 8 days s/p a below the knee RLE amputation secondary to recurrent diabetic foot ulcers. -No bleeding, drainage, or signs of acute infection -Percocet as needed for pain control -continue rehabilitation at [facility] following discharge Present on Admission?: Yes (4) Atrial fibrillation with RVR: His atrial fibrillation with RVR is currently rate controlled. -current rate 79 -continue metoprolol 75 mg BID for rate control -continue Apixaban 5 mg and ASA 81 mg daily for anticoagulation Present on Admission?: Yes Supervising Attestation Medical student note. Ria Valle is a 64-year-old male who had a witnessed seizure shortly after midnight on 08/24 lasting two minutes while staying at [facility] for rehabilitation. He was at [facility] due to a below the knee RLE amputation on 08/17 secondary to recurrent right foot diabetic ulcers. Leonard states that the seizure occurred while he was being escorted back from the bathroom in his room at [facility]. He denies tongue biting, urinary incontinence, or falling to the floor during the seizure, and witnesses say that his entire body was shaking for about two minutes. Following the seizure, Leonard thinks he returned to his normal level of cognition fairly quickly, but witnesses cannot verify the extent of a post- ictal state. By the time he arrived at the ED 90 minutes later, he stated that he felt completely fine. Since his admission, he denies any seizure activity or change in strength, sensation, coordination, vision, or hearing. Leonard had a left MCA stroke in December of 2018, which caused aphasia and right hemiparesis. At that time, Leonard states that it felt like his teeth were "frozen". Since then, he states that he thinks he has returned to his baseline for speech and sensation and strength of his right extremities. Review of Systems Constitutional: no fever, no chills, no sweats, no fatigue, no weakness, no anorexia and no insomnia Eyes: no diplopia, no loss of peripheral vision and no worsening vision Respiratory: no cough, no chest congestion, no dyspnea, no dyspnea on exertion, no pain on inspiration and no stopping breathing during sleep Cardiovascular: + edema (Mild lower extremity edema at the end of the day); no chest pain, no orthopnea and no lightheadedness Gastrointestinal: no abdominal pain, no heartburn, no nausea, no vomiting, no constipation, no diarrhea/loose stools and no blood in stools Genitourinary: no dysuria, no urinary frequency, no urinary hesitancy and no urinary incontinence Neurologic: as per Subjective / HPI Physical Exam Constitutional: WD/WN, vitals as above + acute distress and cooperative Eyes: PERRL, conjunctivae normal, anicteric sclerae ENMT: external ear and nose normal, oropharynx normal Neck: trachea midline, no thyromegaly Respiratory: normal respiratory effort, lungs clear to auscultation no labored breathing and does not use accessory muscles Cardiovascular: Rate/Rhythm: + irregularly irregular Vessels: no JVD and no carotid bruit Extremities: no edema Gastrointestinal (Abdomen): normal bowel sounds, soft, nontender, no hepatosplenomegaly Musculoskeletal: no cyanosis or clubbing, extremities motor strength 5/5 Skin: no rashes, warm and dry Neurologic: patellar DTR's 2+ bilat, sensation intact and PERRL, EOMI, accommodation nl, no face palsy, no dysarthria Speech / Cognition: normal speech, no anomia, no expressive aphasia and no receptive aphasia Motor/Sensory: no tremor and no pronator drift Cranial Nerves: PERRL, normal accommodation, EOM intact bilaterally, normal facial strength, tongue midline, normal hearing, able to rotate head bilaterally, able to elevate shoulders bilaterally and symmetric palate elevation; + nystagmus Coordination: normal kxfyhp-[id number] test, normal arqv-sc-llow test and normal rapid alternating movements Psychiatric: A+Ox3, euthymic affect Results & Data Vital Signs (Past 12 Hours) Vital Signs Temp Pulse Resp BP BP Pulse Ox 08/25/19 06:09 36.8 C 79 20 109/72 91 08/24/19 23:20 37.2 C 81 18 103/68 94 Laboratory Results Potassium: 3.4 Sodium: 140 Magnesium: 1.7 (in ED) TSH 0.879 POC glucose:124 Hgb 10.0, Hct 30.9, MCV 88.[address]: left frontal encephalomalacia. Mild subcortical and periventricular microangiopathic change. No hemorrhage or mass effect. No acute ischemia Brain MRI: No acute intracranial findings. EEG: Focal slowing localizing to the left frontal region consistent with underlying neuronal dysfunction of a structural lesion
[2019-08-25] MEDS: levETIRAcetam 500 MG TAB PO SCH (11:17)
--- NOTE | 2019-08-30 15:47 | Discharge Summary ---
Date of Service August 25, 2019 Admission HPI Per Admitting Provider male with multiple medical problems to include A. fib on anticoagulation, peripheral arterial disease, CAD, hypertension, hyperlipidemia, diabetes, peripheral arterial disease status post right BKA. Patient with history of prior stroke with some mild right-sided weakness and aphasia at baseline. He has a long-standing history of nonhealing diabetic wounds of the right lower extremity he had BKA performed on 08/17/2019. Surgery went well with no complications identified. Patient was discharged to in stable condition on 08/20/2019. He returns to the hospital today after a witnessed grand mal seizure lasting approximately 2 minutes. Patient is unable to provide much information. Does not recall the events that brought him to the ER. He does deny pain, headache, visual change. Denies chest pain, palpitations, shortness of breath, dizziness. Denies numbness/weakness, nausea/vomiting/diarrhea/constipation. No additional complaints at this time. ER course: Metoprolol 5 mg IV, normal saline x1 L Principal Diagnosis new onset seizure Discharge Exam General: patient resting comfortably, NAD, Skin: warm, dry, intact, no rashes or lesions, right lower extremity dressing in place, no bleeding or drainage HEENT: NC/AT, PERRL, anicteric sclera, conjunctiva without injection, external ear normal to inspection and nontender, nares patent, dry mucus membranes, poor dentition, no oropharyngeal lesions, neck supple, trachea midline, no LAD, no thyromegaly, no JVD Heart: +S1/S2, regular, no m/r/g Lungs: equal air entry bilaterally, no rales/rhonchi/wheezes Abd: +BS, soft, NT/ND, no masses/organomegaly/ascites Ext: Status post right BKA Neuro: AAOx3 Discharge Data Allergies Allergy/AdvReac Type Severity Reaction Status Date / Time No Known Allergies Allergy Verified 08/24/19 02:40 Consultations 08/24/19 05:13 ED Decision to Admit Stat 08/24/19 07:01 Consult Case Management - Discharge Planning Routine 08/24/19 08:58 Consult Neurology Routine Ordered Studies 08/24/19 02:41 CT head/brain wo con Urgent 08/24/19 07:01 MR brain seizure wo con Routine Hospital Course (1) New onset seizure: Patient with encephalomalacia noted on CT, prior stroke which can certainl y serve as a seizure focus. Electrolytes are within normal limits. Patient denies alcohol or benzodiazepine use. -Admit to medical floor telemetry -Seizure precautions MRI negative -Optimized electrolytes Appreciate input from Neuro: New onset witnessed generalized seizure probably related to the chronic, moderately sized left MCA (anterior sylvian) stroke occurring this past December. Given this patient's clinical history as well as imaging and focal EEG findings I would recommend treatment with an anticonvulsant. An intravenous loading dose is not necessary, however, given this patient's current clinical stability. I would recommend starting with Keppra 500 mg every 12 hours. (2) History of stroke: Appreciate Neuro input History of left MCA (anterior sylvian branch) infarct occurring this past December, in the context of atrial fibrillation, presenting with an aphasia and right hemiparesis, significantly improved although he does have a subtle right hemiparesis affecting the upper limb as well as subtle speech hesitancy but intact naming, repetition, and comprehension. Would continue with Eliquis and daily low-dose aspirin as ordered. Continue other cardiovascular risk modifying medications as well including Lipitor and propranolol. (3) Status post bilateral below knee amputation: Patient seems to be doing well postoperatively. No bleeding/drainage/evidence of infection -Percocet as needed for pain control -Dressing changes as needed (4) Atrial fibrillation with RVR: Presently rate controlled at 89 bpm -Continue apixaban for anticoagulation -Continue metoprolol 75 mg p.o. twice daily for rate control -Telemetry monitoring Total Time Total Time Spent Total Time Spent (In Minutes): 32 Discharge Plan Discharge Items Patient Disposition: Transfer Inpatient Rehab Fac Reason For Visit: SEIZURE Discharge Diagnosis: seizure Activity: Resume your previous activity Non-emergency contact: Primary Care Provider Call non-emergency contact if: you have any medication questions Follow-up/Referrals: Lauren Raymond MD [Primary Care Provider] - Diet: Carb Consistent or DM2 and Heart Healthy Addtl Attending Provider Instructions: will recommend followup with Neurology in about 1 month. Pending Studies at Discharge: No Stand-Alone Forms: [facility] Skilled Items Patient informed of condition?: No DNR: No Discharge Level of Care: Acute rehab Communicable Disease: No Discharge Prognosis: Stable Lines: None Urinary Catheter: No Medications and DC Order Prescriptions: New levetiracetam [Keppra] 500 mg Tablet 500 mg PO Q12H Qty: 60 RF: 0 Continued ferrous sulfate 325 mg (65 mg iron) tablet,delayed release (DR/EC) 325 mg PO QAM RF: 0 PreserVision AREDS-2 [id number] xa-[id number]-mg capsule 1 tab PO BID RF: 0 metformin 1,000 mg tablet 1,000 mg PO BID Qty: 180 RF: 1 metoprolol tartrate 75 mg tablet 75 mg PO BID Qty: 180 RF: 1 donepezil 10 mg tablet 10 mg PO HS Qty: 90 RF: 1 Eliquis 5 mg tablet 5 mg PO BID Qty: 60 RF: 3 polyethylene glycol 3350 [Miralax] 17 gram/dose powder 17 gm PO DAILY PRN (Reason: Constipation) RF: 0 potassium chloride 10 mEq Tablet Extended Release 10 meq PO BID RF: 0 melatonin 3 mg Tablet 3 mg PO HS PRN (Reason: Sleep) RF: 0 Novolog U-100 Insulin aspart 100 unit/mL Solution 1 sliding scale dose SUBCUT ACHS RF: 0 docusate sodium 100 mg Capsule 100 mg PO BID RF: 0 multivitamin with minerals Tablet 1 tab PO DAILY RF: 0 acetaminophen [Tylenol] 325 mg Capsule 650 mg PO Q4H PRN (Reason: Pain (Scale Score 1-3)) RF: 0 atorvastatin 40 mg tablet 40 mg PO HS RF: 0 oxycodone 5 mg capsule 5 mg PO Q6H PRN (Reason: Pain (Scale Score 4-10)) RF: 0 furosemide 40 mg tablet 40 mg PO QAM RF: 0 aspirin [Adult Low Dose Aspirin] 81 mg tablet,delayed release (DR/EC) 81 mg PO QAM RF: 0 pantoprazole 40 mg tablet,delayed release (DR/EC) 40 mg PO QAM RF: 0 Discharge Orders: Discharge Order (Routine); Ordered 08/25/19 Ordered By: Roberto Sung Admission Data Admit Date/Time: 08/24/19 05:41 Attending Provider: Roberto Sung Admit Provider: Apurva Amaya Primary Care Provider: Lauren Raymond V. Other Providers: Apurva Amaya ; Neo Yoder ; [facility] Other Interventions: Discharge Summary Assessment (RN) Last Done: 08/25/19 13:34 DC Date/Time DO NOT enter until pt leaves facility: 08/25/19 14:40
== END 2019-08-25 14:40 | DRG 57 ==
LOC: ED 02:07 → 3N 05:41 → SUATTDRO 05:41 → 3N 06:20